=== PATIENT | female | born 1925 | race Caucasian/White ===

== ENCOUNTER 2016-07-06 12:29 | Inpatient (IN) ==
--- NOTE | 2016-07-06 12:44 | PROVIDER DOCUMENTATION ---
HPI-General Adult - General Chief Complaint: High Blood Sugar Stated Complaint: LOW BLOOD SUGAR Time Seen by Provider: 07/06/16 12:43 Source: patient Allergies/Adverse Reactions: Patient Allergies Allergy/AdvReac Type Severity Reaction Status Date / Time No Known Allergies Allergy Verified 07/06/16 12:43 Home Medications: Insulin Detemir [Levemir] 38 unit SUBQ DAILY 07/06/16 Losartan/Hydrochlorothiazide [Hyzaar 100-12.5 Tablet] 1 each PO DAILY 07/06/16 - History of Present Illness -Gen Adult Nature of Presenting Problems: 89 yo female presents to ed with her granddaughter. Pt is confused. Granddaughter states that pt is diabetic and has been out of medications for an unknown period of time. She states that she arrived at her home this morning and found her in her vehicle with a container of chocolate milk. She then brought her to the ed. She states that Dr. Montenegro was her pcp but that he retired and she has not established a new pcp. Granddaughter states that she does not know what medications pt is on or her pmh. Pt states she does not know what medications she should be taking. She uses [facility]. Location of Pain/Injury: reports: none Associated Symptoms: reports: weakness Similar Symptoms Previously?: No Recently seen or treated by another doctor?: No Review of Systems - Adult - REVIEW OF SYSTEMS - ADULT Constitutional: reports: see HPI Neurological: reports: see HPI All Other Systems: Reviewed and Negative Past History - Adult - PAST MEDICAL HISTORY-ADULT Review of Records: reports: Nursing Assessment Review, Medications Reviewed Major Childhood Illnesses: reports: denies history Cardiovascular: reports: HTN Respiratory: reports: denies history Gastrointestinal: reports: denies history Obstetrical/Gynecological: reports: denies history Genitourinary: reports: kidney disease Musculoskeletal: reports: chronic pain (low back) Neurological: reports: denies history Endocrine/Immune: reports: denies history Other Conditions: reports: denies history - PRIOR SURGERIES/PROCEDURES Surgical/Procedure History: reports: breast - PRIOR HOSPITALIZATIONS Prior Hospitalizations: reports: for other non-related - IMMUNIZATION STATUS Childhood Immunizations: See Nurse Assessment Flu Vaccine: See Nurse Assessment - FAMILY HISTORY Family History: reviewed, not pertinent Physical Exam-General - PHYSICAL EXAM-ADULT Initial Vital Signs Reviewed: Yes - CONSTITUTIONAL General Appearance: alert - EYES Eyes: PERRL/EOMI, pink conjunctivae, fundi clear, no AV nicking - HEAD, EARS, NOSE, MOUTH & THROAT HENMT: normocephalic/atraumatic, moist mucous membranes, normal ENT inspection, TMs normal, pharynx normal - NECK Neck: non-tender, full range of motion, supple - RESPIRATORY Respiratory: chest non-tender, lungs clear, normal breath sounds - CARDIOVASCULAR Cardiovascular: normal peripheral pulses, regular rate, rhythm, no edema - GASTROINTESTINAL (ABDOMEN) Abdominal Exam: normal bowel sounds, non tender, soft - LYMPHATIC Lymphatic: no adenopathy - MUSCULOSKELETAL Back Exam: normal inspection, no CVA tenderness, no vertebral tenderness Extremity: normal range of motion, non-tender, normal inspection Peripheral Pulses: radial (R): 1+, radial (L): 1+ - SKIN Integumentary: normal color, normal turgor, warm/dry - NEUROLOGIC Neurologic: inpatient services director II-XII nml as tested - PSYCHIATRIC Psych/Mental Status: disheveled, other (disoriented to circumstances) Progress - PLAN OF CARE/RESULTS Progress/Plan/Lab Results: Laboratory Tests 07/06/16 07/06/16 07/06/16 12:33 13:01 13:01 WBC 6.94 RBC 2.83 L Hgb 5.4 L* Hct 19.8 L MCV 70.0 L MCH 19.1 L MCHC 27.3 L RDW Std Deviation 18.4 H Plt Count 555 H MPV 9.2 Immature Gran % (Auto) 0.7 H Neut % (Auto) 72.0 Lymph % (Auto) 18.7 L [place] % (Auto) 8.1 Eos % (Auto) 0.1 Baso % (Auto) 0.4 Immature Gran # (Auto) 0.05 H Neut # (Auto) 4.99 Lymph # (Auto) 1.30 [place] # (Auto) 0.56 Eos # (Auto) 0.01 Baso # (Auto) 0.03 PTT (Actin FS) Specimen Type Sample Site pH pCO2 pO2 HCO3 Base Excess Oxyhemoglobin ABG O2 Sat (Calculated) ABG O2 Saturation ABG Carboxyhemoglobin ABG Methemoglobin Juan Test A-a O2 Difference Total Hemoglobin Lactate Blood Gas Modality FiO2 % Sodium 131 L Potassium 4.9 Chloride 100 Carbon Dioxide 18 L Anion Gap 13 BUN 23 H Creatinine 1.7 H Estimated GFR/1.73 m2 28 BUN/Creatinine Ratio 14 Glucose 257 H POC Glucose 325 H Calculated Osmolality 275 Calcium 8.5 L Magnesium Iron TIBC % Saturation Unsat Iron Binding Ferritin Total Bilirubin < 0.10 L AST 12 ALT 7 L Alkaline Phosphatase 79 Creatine Kinase Troponin T Total Protein 6.5 Albumin 3.4 L Globulin 3.1 Albumin/Globulin Ratio 1.1 Plasma Lactate Folate Urine Source Urine Color Urine Turbidity Urine pH Ur Specific [place] Urine Protein Ur Glucose (Stick) Ur Ketones (Stick) Urine Blood Urine Nitrite Urine Bilirubin Urobilinogen Dipstick Urine Leukocytes Urine WBC (Auto) Urine RBC (Auto) U Epithel Cells (Auto) Urine Bacteria (Auto) Urine Opiates Screen Ur Oxycodone Screen Ur Methadone, Qual Ur Barbiturates Screen Ur Phencyclidine Scrn Ur Amphetamines Screen U Benzodiazepines Scrn Urine Cocaine Screen U Cannabinoids Screen Plasma/Serum Ethyl Alc Blood Type Antibody Screen Crossmatch 07/06/16 07/06/16 07/06/16 13:01 13:01 13:01 WBC RBC Hgb Hct MCV MCH MCHC RDW Std Deviation Plt Count MPV Immature Gran % (Auto) Neut % (Auto) Lymph % (Auto) [place] % (Auto) Eos % (Auto) Baso % (Auto) Immature Gran # (Auto) Neut # (Auto) Lymph # (Auto) [place] # (Auto) Eos # (Auto) Baso # (Auto) PTT (Actin FS) 23.5 Specimen Type Sample Site pH pCO2 pO2 HCO3 Base Excess Oxyhemoglobin ABG O2 Sat (Calculated) ABG O2 Saturation ABG Carboxyhemoglobin ABG Methemoglobin Juan Test A-a O2 Difference Total Hemoglobin Lactate Blood Gas Modality FiO2 % Sodium Potassium Chloride Carbon Dioxide Anion Gap BUN Creatinine Estimated GFR/1.73 m2 BUN/Creatinine Ratio Glucose POC Glucose Calculated Osmolality Calcium Magnesium Iron 9 L TIBC 357 % Saturation 3 Unsat Iron Binding 348 H Ferritin Total Bilirubin AST ALT Alkaline Phosphatase Creatine Kinase Troponin T Total Protein Albumin Globulin Albumin/Globulin Ratio Plasma Lactate Folate Urine Source Urine Color Urine Turbidity Urine pH Ur Specific [place] Urine Protein Ur Glucose (Stick) Ur Ketones (Stick) Urine Blood Urine Nitrite Urine Bilirubin Urobilinogen Dipstick Urine Leukocytes Urine WBC (Auto) Urine RBC (Auto) U Epithel Cells (Auto) Urine Bacteria (Auto) Urine Opiates Screen Ur Oxycodone Screen Ur Methadone, Qual Ur Barbiturates Screen Ur Phencyclidine Scrn Ur Amphetamines Screen U Benzodiazepines Scrn Urine Cocaine Screen U Cannabinoids Screen Plasma/Serum Ethyl Alc Blood Type Antibody Screen Crossmatch 07/06/16 07/06/16 07/06/16 13:01 13:01 13:19 WBC RBC Hgb Hct MCV MCH MCHC RDW Std Deviation Plt Count MPV Immature Gran % (Auto) Neut % (Auto) Lymph % (Auto) [place] % (Auto) Eos % (Auto) Baso % (Auto) Immature Gran # (Auto) Neut # (Auto) Lymph # (Auto) [place] # (Auto) Eos # (Auto) Baso # (Auto) PTT (Actin FS) Specimen Type Sample Site pH pCO2 pO2 HCO3 Base Excess Oxyhemoglobin ABG O2 Sat (Calculated) ABG O2 Saturation ABG Carboxyhemoglobin ABG Methemoglobin Juan Test A-a O2 Difference Total Hemoglobin Lactate Blood Gas Modality FiO2 % Sodium Potassium Chloride Carbon Dioxide Anion Gap BUN Creatinine Estimated GFR/1.73 m2 BUN/Creatinine Ratio Glucose POC Glucose Calculated Osmolality Calcium Magnesium Iron TIBC % Saturation Unsat Iron Binding Ferritin 1 L Total Bilirubin AST ALT Alkaline Phosphatase Creatine Kinase Troponin T Total Protein Albumin Globulin Albumin/Globulin Ratio Plasma Lactate 2.8 H Folate 11.3 Urine Source Urine Color Urine Turbidity Urine pH Ur Specific [place] Urine Protein Ur Glucose (Stick) Ur Ketones (Stick) Urine Blood Urine Nitrite Urine Bilirubin Urobilinogen Dipstick Urine Leukocytes Urine WBC (Auto) Urine RBC (Auto) U Epithel Cells (Auto) Urine Bacteria (Auto) Urine Opiates Screen Ur Oxycodone Screen Ur Methadone, Qual Ur Barbiturates Screen Ur Phencyclidine Scrn Ur Amphetamines Screen U Benzodiazepines Scrn Urine Cocaine Screen U Cannabinoids Screen Plasma/Serum Ethyl Alc Blood Type Antibody Screen Crossmatch 07/06/16 07/06/16 07/06/16 13:19 14:42 14:42 WBC RBC Hgb Hct MCV MCH MCHC RDW Std Deviation Plt Count MPV Immature Gran % (Auto) Neut % (Auto) Lymph % (Auto) [place] % (Auto) Eos % (Auto) Baso % (Auto) Immature Gran # (Auto) Neut # (Auto) Lymph # (Auto) [place] # (Auto) Eos # (Auto) Baso # (Auto) PTT (Actin FS) Specimen Type Sample Site pH pCO2 pO2 HCO3 Base Excess Oxyhemoglobin ABG O2 Sat (Calculated) ABG O2 Saturation ABG Carboxyhemoglobin ABG Methemoglobin Jaun Test A-a O2 Difference Total Hemoglobin Lactate Blood Gas Modality FiO2 % Sodium Potassium Chloride Carbon Dioxide Anion Gap BUN Creatinine Estimated GFR/1.73 m2 BUN/Creatinine Ratio Glucose POC Glucose Calculated Osmolality Calcium Magnesium Iron TIBC % Saturation Unsat Iron Binding Ferritin Total Bilirubin AST ALT Alkaline Phosphatase Creatine Kinase Troponin T Total Protein Albumin Globulin Albumin/Globulin Ratio Plasma Lactate Folate Urine Source CATH Urine Color YELLOW Urine Turbidity HAZY Urine pH 5.5 Ur Specific [place] 1.021 Urine Protein TRACE A Ur Glucose (Stick) 100 A Ur Ketones (Stick) NEGATIVE Urine Blood NEGATIVE Urine Nitrite NEGATIVE Urine Bilirubin NEGATIVE Urobilinogen Dipstick NORMAL Urine Leukocytes MODERATE A Urine WBC (Auto) 10-20 A Urine RBC (Auto) <10 U Epithel Cells (Auto) <10 Urine Bacteria (Auto) 2+ Urine Opiates Screen NONE DETECTED Ur Oxycodone Screen NONE DETECTED Ur Methadone, Qual NONE DETECTED Ur Barbiturates Screen NONE DETECTED Ur Phencyclidine Scrn NONE DETECTED Ur Amphetamines Screen NONE DETECTED U Benzodiazepines Scrn NONE DETECTED Urine Cocaine Screen NONE DETECTED U Cannabinoids Screen NONE DETECTED Plasma/Serum Ethyl Alc Blood Type A POSITIVE Antibody Screen NEGATIVE Crossmatch See Detail 07/06/16 07/06/16 07/06/16 14:44 14:44 15:05 WBC RBC Hgb Hct MCV MCH MCHC RDW Std Deviation Plt Count MPV Immature Gran % (Auto) Neut % (Auto) Lymph % (Auto) [place] % (Auto) Eos % (Auto) Baso % (Auto) Immature Gran # (Auto) Neut # (Auto) Lymph # (Auto) [place] # (Auto) Eos # (Auto) Baso # (Auto) PTT (Actin FS) Specimen Type ARTERIAL Sample Site R BRACHIAL pH 7.45 pCO2 28 L pO2 90 HCO3 21.8 Base Excess -4.0 L Oxyhemoglobin 96.3 ABG O2 Sat (Calculated) 9.4 L ABG O2 Saturation 98.7 ABG Carboxyhemoglobin 1.40 ABG Methemoglobin 1.1 Juan Test NO A-a O2 Difference 25.0 Total Hemoglobin 6.8 L Lactate 2.30 H Blood Gas Modality ROOM AIR FiO2 % 21.0 Sodium Potassium Chloride Carbon Dioxide Anion Gap BUN Creatinine Estimated GFR/1.73 m2 BUN/Creatinine Ratio Glucose POC Glucose Calculated Osmolality Calcium Magnesium 1.6 Iron TIBC % Saturation Unsat Iron Binding Ferritin Total Bilirubin AST ALT Alkaline Phosphatase Creatine Kinase 42 Troponin T < 0.010 Total Protein Albumin Globulin Albumin/Globulin Ratio Plasma Lactate Folate Urine Source Urine Color Urine Turbidity Urine pH Ur Specific [place] Urine Protein Ur Glucose (Stick) Ur Ketones (Stick) Urine Blood Urine Nitrite Urine Bilirubin Urobilinogen Dipstick Urine Leukocytes Urine WBC (Auto) Urine RBC (Auto) U Epithel Cells (Auto) Urine Bacteria (Auto) Urine Opiates Screen Ur Oxycodone Screen Ur Methadone, Qual Ur Barbiturates Screen Ur Phencyclidine Scrn Ur Amphetamines Screen U Benzodiazepines Scrn Urine Cocaine Screen U Cannabinoids Screen Plasma/Serum Ethyl Alc Blood Type Antibody Screen Crossmatch Orders Category Date Time Status Admit - [facility] Routine AdmDCTranf 07/06/16 15:06 Ordered Activity - Bed Rest with BRP ORDERED Care 07/06/16 15:06 Active Call Admitting on Arrival AT ADMISSION Care 07/06/16 15:07 Active Cardiac Monitoring DIRECTED Care 07/06/16 13:50 Active FSBS [Finger Stick Blood Sugar (ED)] DIRECTED Care 07/06/16 12:36 Active [place] [facility] Insertion ORDERED Care 07/06/16 14:16 Active Neurological Check Q4H Care 07/06/16 15:07 Active Saline Loc DIRECTED Care 07/06/16 15:06 Active Saline Loc NOW Care 07/06/16 12:44 Active Transfuse .Give-Transfuse Care 07/06/16 14:07 Active Vital Signs Order ARRIVAL TO ROOM Care 07/06/16 15:06 Active Vital Signs Order ROUTINE Care 07/06/16 15:06 Active Regular Diet Diet 07/06/16 15:08 Active CHEST-2 VIEWS [RAD] Stat Exams 07/06/16 13:48 Completed HEAD W/O CONTRAST [CT] Stat Exams 07/06/16 14:15 Completed ABG [RESP] Routine Lab 07/06/16 15:05 Completed ALCOHOL BLOOD Stat Lab 07/06/16 13:01 Completed BLOOD CULTURE [BLDCUL] Stat Lab 07/06/16 14:42 Received CBC WITH ELECTRONIC DIFF [HEME] Stat Lab 07/06/16 13:01 Completed CK PROFILE [SP CHEM] Stat Lab 07/06/16 14:44 Completed COMPREHENSIVE METABOLIC PANEL [CHEM] Stat Lab 07/06/16 13:01 Completed FERRITIN Stat Lab 07/06/16 13:01 Completed FOLATE Stat Lab 07/06/16 13:01 Completed LACTATE, PLASMA [CHEM] Stat Lab 07/06/16 13:19 Completed LRPC (RED CELLS) [BBK] Stat Lab 07/06/16 13:19 Results MAGNESIUM [CHEM] Stat Lab 07/06/16 14:44 Completed OCCULT BLOOD SCREENING [STOOL] Stat Lab 07/06/16 14:42 Completed PTT [COAG] Stat Lab 07/06/16 13:01 Completed TROPONIN T Stat Lab 07/06/16 14:44 Completed TYPE & SCREEN [BBK] Stat Lab 07/06/16 13:19 Results UA NIMS W/REFLEX CULT [URINALYSIS] Stat Lab 07/06/16 14:42 Completed UDS [URINE DRUG SCREEN] Stat Lab 07/06/16 14:42 Completed UIBC W TOTAL IRON [CHEM] Stat Lab 07/06/16 13:01 Completed VITAMIN B12 Routine Lab 07/07/16 06:00 Ordered 0.9% Sodium Chloride Inj [Ns] 1,000 ml Med 07/06/16 15:15 Active IV 150 mls/hr 0.9% Sodium Chloride Inj [Ns] 1,000 ml Med 07/06/16 13:04 Discontinued IV 999 mls/hr 0.9% Sodium Chloride Inj [Ns] 500 ml Med 07/06/16 14:07 Discontinued IV As Directed 0.9% Sodium Chloride Inj [Ns] 500 ml Med 07/06/16 14:14 Discontinued IV As Directed Diphenhydramine [Benadryl] Med 07/06/16 15:11 Discontinued 25 mg IV NOW ONE Diphenhydramine [Benadryl] Med 07/06/16 14:07 Discontinued 50 mg PO PREMED ONE Insulin Human Regular [Humulin R] Med 07/06/16 13:04 Discontinued 8 unit IV NOW ONE Transfer/Admit Order [TRANSFER] Routine Transfer 07/06/16 15:07 Ordered Vital Signs Temp Pulse Resp BP Pulse Ox 07/06/16 14:58 83 23 140/65 100 07/06/16 12:33 97.4 F L 90 20 134/59 100 No Known Allergies Allergy (Verified 07/06/16 12:43) Insulin Detemir [Levemir] 38 unit SUBQ DAILY 07/06/16 Losartan/Hydrochlorothiazide [Hyzaar 100-12.5 Tablet] 1 each PO DAILY 07/06/16 Dietary Diet Regular Diet Start Sat Jul 06 150 Laboratory 07/06/16 07/06/16 07/06/16 15:05 14:44 14:44 WBC RBC Hgb Hct MCV MCH MCHC RDW Std Deviation Plt Count MPV Immature Gran % (Auto) Neut % (Auto) Lymph % (Auto) [place] % (Auto) Eos % (Auto) Baso % (Auto) Immature Gran # (Auto) Neut # (Auto) Lymph # (Auto) [place] # (Auto) Eos # (Auto) Baso # (Auto) PTT (Actin FS) Specimen Type ARTERIAL Sample Site R BRACHIAL pH 7.45 pCO2 28 L pO2 90 HCO3 21.8 Base Excess -4.0 L Oxyhemoglobin 96.3 ABG O2 Sat (Calculated) 9.4 L ABG O2 Saturation 98.7 ABG Carboxyhemoglobin 1.40 ABG Methemoglobin 1.1 Juan Test NO A-a O2 Difference 25.0 Total Hemoglobin 6.8 L Lactate 2.30 H Blood Gas Modality ROOM AIR FiO2 % 21.0 Sodium Potassium Chloride Carbon Dioxide Anion Gap BUN Creatinine Estimated GFR/1.73 m2 BUN/Creatinine Ratio Glucose POC Glucose Calculated Osmolality Calcium Magnesium 1.6 Iron TIBC % Saturation Unsat Iron Binding Ferritin Total Bilirubin AST ALT Alkaline Phosphatase Creatine Kinase 42 Troponin T < 0.010 Total Protein Albumin Globulin Albumin/Globulin Ratio Plasma Lactate Folate Urine Source Urine Color Urine Turbidity Urine pH Ur Specific [place] Urine Protein Ur Glucose (Stick) Ur Ketones (Stick) Urine Blood Urine Nitrite Urine Bilirubin Urobilinogen Dipstick Urine Leukocytes Urine WBC (Auto) Urine RBC (Auto) U Epithel Cells (Auto) Urine Bacteria (Auto) Urine Opiates Screen Ur Oxycodone Screen Ur Methadone, Qual Ur Barbiturates Screen Ur Phencyclidine Scrn Ur Amphetamines Screen U Benzodiazepines Scrn Urine Cocaine Screen U Cannabinoids Screen Plasma/Serum Ethyl Alc Blood Type Antibody Screen Crossmatch 07/06/16 07/06/16 07/06/16 14:42 14:42 13:19 WBC RBC Hgb Hct MCV MCH MCHC RDW Std Deviation Plt Count MPV Immature Gran % (Auto) Neut % (Auto) Lymph % (Auto) [place] % (Auto) Eos % (Auto) Baso % (Auto) Immature Gran # (Auto) Neut # (Auto) Lymph # (Auto) [place] # (Auto) Eos # (Auto) Baso # (Auto) PTT (Actin FS) Specimen Type Sample Site pH pCO2 pO2 HCO3 Base Excess Oxyhemoglobin ABG O2 Sat (Calculated) ABG O2 Saturation ABG Carboxyhemoglobin ABG Methemoglobin Juan Test A-a O2 Difference Total Hemoglobin Lactate Blood Gas Modality FiO2 % Sodium Potassium Chloride Carbon Dioxide Anion Gap BUN Creatinine Estimated GFR/1.73 m2 BUN/Creatinine Ratio Glucose POC Glucose Calculated Osmolality Calcium Magnesium Iron TIBC % Saturation Unsat Iron Binding Ferritin Total Bilirubin AST ALT Alkaline Phosphatase Creatine Kinase Troponin T Total Protein Albumin Globulin Albumin/Globulin Ratio Plasma Lactate Folate Urine Source CATH Urine Color YELLOW Urine Turbidity HAZY Urine pH 5.5 Ur Specific [place] 1.021 Urine Protein TRACE A Ur Glucose (Stick) 100 A Ur Ketones (Stick) NEGATIVE Urine Blood NEGATIVE Urine Nitrite NEGATIVE Urine Bilirubin NEGATIVE Urobilinogen Dipstick NORMAL Urine Leukocytes MODERATE A Urine WBC (Auto) 10-20 A Urine RBC (Auto) <10 U Epithel Cells (Auto) <10 Urine Bacteria (Auto) 2+ Urine Opiates Screen NONE DETECTED Ur Oxycodone Screen NONE DETECTED Ur Methadone, Qual NONE DETECTED Ur Barbiturates Screen NONE DETECTED Ur Phencyclidine Scrn NONE DETECTED Ur Amphetamines Screen NONE DETECTED U Benzodiazepines Scrn NONE DETECTED Urine Cocaine Screen NONE DETECTED U Cannabinoids Screen NONE DETECTED Plasma/Serum Ethyl Alc Blood Type A POSITIVE Antibody Screen NEGATIVE Crossmatch See Detail 07/06/16 07/06/16 07/06/16 13:19 13:01 13:01 WBC RBC Hgb Hct MCV MCH MCHC RDW Std Deviation Plt Count MPV Immature Gran % (Auto) Neut % (Auto) Lymph % (Auto) [place] % (Auto) Eos % (Auto) Baso % (Auto) Immature Gran # (Auto) Neut # (Auto) Lymph # (Auto) [place] # (Auto) Eos # (Auto) Baso # (Auto) PTT (Actin FS) Specimen Type Sample Site pH pCO2 pO2 HCO3 Base Excess Oxyhemoglobin ABG O2 Sat (Calculated) ABG O2 Saturation ABG Carboxyhemoglobin ABG Methemoglobin Juan Test A-a O2 Difference Total Hemoglobin Lactate Blood Gas Modality FiO2 % Sodium Potassium Chloride Carbon Dioxide Anion Gap BUN Creatinine Estimated GFR/1.73 m2 BUN/Creatinine Ratio Glucose POC Glucose Calculated Osmolality Calcium Magnesium Iron TIBC % Saturation Unsat Iron Binding Ferritin 1 L Total Bilirubin AST ALT Alkaline Phosphatase Creatine Kinase Troponin T Total Protein Albumin Globulin Albumin/Globulin Ratio Plasma Lactate 2.8 H Folate 11.3 Urine Source Urine Color Urine Turbidity Urine pH Ur Specific [place] Urine Protein Ur Glucose (Stick) Ur Ketones (Stick) Urine Blood Urine Nitrite Urine Bilirubin Urobilinogen Dipstick Urine Leukocytes Urine WBC (Auto) Urine RBC (Auto) U Epithel Cells (Auto) Urine Bacteria (Auto) Urine Opiates Screen Ur Oxycodone Screen Ur Methadone, Qual Ur Barbiturates Screen Ur Phencyclidine Scrn Ur Amphetamines Screen U Benzodiazepines Scrn Urine Cocaine Screen U Cannabinoids Screen Plasma/Serum Ethyl Alc Blood Type Antibody Screen Crossmatch 07/06/16 07/06/16 07/06/16 13:01 13:01 13:01 WBC RBC Hgb Hct MCV MCH MCHC RDW Std Deviation Plt Count MPV Immature Gran % (Auto) Neut % (Auto) Lymph % (Auto) [place] % (Auto) Eos % (Auto) Baso % (Auto) Immature Gran # (Auto) Neut # (Auto) Lymph # (Auto) [place] # (Auto) Eos # (Auto) Baso # (Auto) PTT (Actin FS) 23.5 Specimen Type Sample Site pH pCO2 pO2 HCO3 Base Excess Oxyhemoglobin ABG O2 Sat (Calculated) ABG O2 Saturation ABG Carboxyhemoglobin ABG Methemoglobin Juan Test A-a O2 Difference Total Hemoglobin Lactate Blood Gas Modality FiO2 % Sodium Potassium Chloride Carbon Dioxide Anion Gap BUN Creatinine Estimated GFR/1.73 m2 BUN/Creatinine Ratio Glucose POC Glucose Calculated Osmolality Calcium Magnesium Iron 9 L TIBC 357 % Saturation 3 Unsat Iron Binding 348 H Ferritin Total Bilirubin AST ALT Alkaline Phosphatase Creatine Kinase Troponin T Total Protein Albumin Globulin Albumin/Globulin Ratio Plasma Lactate Folate Urine Source Urine Color Urine Turbidity Urine pH Ur Specific [place] Urine Protein Ur Glucose (Stick) Ur Ketones (Stick) Urine Blood Urine Nitrite Urine Bilirubin Urobilinogen Dipstick Urine Leukocytes Urine WBC (Auto) Urine RBC (Auto) U Epithel Cells (Auto) Urine Bacteria (Auto) Urine Opiates Screen Ur Oxycodone Screen Ur Methadone, Qual Ur Barbiturates Screen Ur Phencyclidine Scrn Ur Amphetamines Screen U Benzodiazepines Scrn Urine Cocaine Screen U Cannabinoids Screen Plasma/Serum Ethyl Alc Blood Type Antibody Screen Crossmatch 07/06/16 07/06/16 07/06/16 13:01 13:01 12:33 WBC 6.94 RBC 2.83 L Hgb 5.4 L* Hct 19.8 L MCV 70.0 L MCH 19.1 L MCHC 27.3 L RDW Std Deviation 18.4 H Plt Count 555 H MPV 9.2 Immature Gran % (Auto) 0.7 H Neut % (Auto) 72.0 Lymph % (Auto) 18.7 L [place] % (Auto) 8.1 Eos % (Auto) 0.1 Baso % (Auto) 0.4 Immature Gran # (Auto) 0.05 H Neut # (Auto) 4.99 Lymph # (Auto) 1.30 [place] # (Auto) 0.56 Eos # (Auto) 0.01 Baso # (Auto) 0.03 PTT (Actin FS) Specimen Type Sample Site pH pCO2 pO2 HCO3 Base Excess Oxyhemoglobin ABG O2 Sat (Calculated) ABG O2 Saturation ABG Carboxyhemoglobin ABG Methemoglobin Juan Test A-a O2 Difference Total Hemoglobin Lactate Blood Gas Modality FiO2 % Sodium 131 L Potassium 4.9 Chloride 100 Carbon Dioxide 18 L Anion Gap 13 BUN 23 H Creatinine 1.7 H Estimated GFR/1.73 m2 28 BUN/Creatinine Ratio 14 Glucose 257 H POC Glucose 325 H Calculated Osmolality 275 Calcium 8.5 L Magnesium Iron TIBC % Saturation Unsat Iron Binding Ferritin Total Bilirubin < 0.10 L AST 12 ALT 7 L Alkaline Phosphatase 79 Creatine Kinase Troponin T Total Protein 6.5 Albumin 3.4 L Globulin 3.1 Albumin/Globulin Ratio 1.1 Plasma Lactate Folate Urine Source Urine Color Urine Turbidity Urine pH Ur Specific [place] Urine Protein Ur Glucose (Stick) Ur Ketones (Stick) Urine Blood Urine Nitrite Urine Bilirubin Urobilinogen Dipstick Urine Leukocytes Urine WBC (Auto) Urine RBC (Auto) U Epithel Cells (Auto) Urine Bacteria (Auto) Urine Opiates Screen Ur Oxycodone Screen Ur Methadone, Qual Ur Barbiturates Screen Ur Phencyclidine Scrn Ur Amphetamines Screen U Benzodiazepines Scrn Urine Cocaine Screen U Cannabinoids Screen Plasma/Serum Ethyl Alc Blood Type Antibody Screen Crossmatch - XRAY 1 XRAY Study: Chest XRAY Interpretation: no pneumonia - CT/MRI 1 CT Results: no bleeding. Chronic atrophy noted. - CONSULTS/PCP/HOSPITALIST Notification #1 *Consult/PCP/Hospitalist*: [place] Time Discussed: 15:20 Consult Disposition: Admit Departure - Departure Time of Disposition Order: 15:40 DIAGNOSIS: Hyperglycemia GI bleed Qualifiers: GI bleed type/associated pathology: unspecified gastrointestinal hemorrhage type Qualified Code(s): K92.2 - Gastrointestinal hemorrhage, unspecified UTI (urinary tract infection) Qualifiers: Urinary tract infection type: site unspecified Hematuria presence: without hematuria Qualified Code(s): N39.0 - Urinary tract infection, site not specified Altered mental status Qualifiers: Altered mental status type: unspecified Qualified Code(s): R41.82 - Altered mental status, unspecified Disposition: ADMITTED INPATIENT 09 Certified Medical Emergency: Emergent Condition: Stable Attestation - Physician/ MITCH Attestation Patient care was provided by Advanced Practice Provider:: Yes Advanced Practice Provider:: Rm Hester Advanced Practice Provider documentation review:: The Mid-level provider documentation, treatment plan and medical decision making was reviewed by the physician who agrees with all treatment and medical decision making by the MLP. The physician spent face to face time with patient:: Yes
[2016-07-06] MEDS ORDERED: NS 1,000 ML IV ONE (13:04)
[2016-07-06] MEDS ORDERED: HUMULIN R IV ONE (13:04)
[2016-07-06 13:45] LABS: AGAP 13; ALBUMIN 3.4 g/dL (3.5-5.0); ALKALINE PHOSPHATASE 79 U/L (32-104); BUN 23 mg/dL (8-22); CALCIUM 8.5 mg/dL (8.8-10.2); CHLORIDE 100 mmol/L (98-107); COSMO 275; GOT 12 U/L (10-30); GPT 7 U/L (10-36); POTASSIUM 4.9 mmol/L (3.5-5.1); SODIUM 131 mmol/L (136-145); TCO2 18 mmol/L (25-35); TOTAL BILIRUBIN < 0.10 mg/dL (0.20-1.00); TOTAL PROTEIN 6.5 g/dL (6.3-8.3)
[2016-07-06 13:49] LABS: BASO% 0.4 % (0.0-0.8); EOS# 0.01 X1000 (0.0-0.7); EOS% 0.1 % (0.0-10.0); HEMATOCRIT 19.8 % (37.0-47.0); IMM GRAN# 0.05 X1000 (0.0-0.04); IMM GRAN% 0.7 % (0.0-0.5); LYMPH% 18.7 % (20.5-51.1); MANUAL DIFF NEEDED? NO; MCH 19.1 PG (27-31); MCHC 27.3 g/dL (33-37); MONO# 0.56 X1000 (0.11-0.59); MONO% 8.1 % (1.7-9.3); MPV 9.2 FL (7.4-10.4); PLT 555 X1000 (130-400); RBC 2.83 XMIL (4.2-5.4)
[2016-07-06 13:50] LABS: HEMOGLOBIN 5.4 g/dL (12.0-16.0)
[2016-07-06] MEDS ORDERED: NS 500 ML IV ONE ×2 (14:07→14:14)
[2016-07-06] MEDS ORDERED: BENADRYL PO ONE (14:07)
[2016-07-06 14:49] LABS: IRON SATURATION 3 %; TIBC 357 ug/dL
[2016-07-06 14:51] LABS: TOTAL IRON 9 ug/dL (49-151); UNBOUND IRON 348 ug/dL (112-346)
--- NOTE | 2016-07-06 14:51 | Diag Imaging Result Document ---
PROCEDURE NAME: HEAD W/O CONTRAST - 07/06/2016 CT BRAIN WITHOUT CONTRAST. TECHNIQUE: Dose reduction protocol. FINDINGS: No parenchymal hemorrhage. No epidural or subdural hematoma. No subarachnoid hemorrhage. There is atrophy with chronic microvascular ischemic changes. No hydrocephalus. No sinus opacification. No air-fluid levels. IMPRESSION: 1. No hemorrhage. 2. Atrophy with chronic microvascular ischemic changes. A followup MRI may be beneficial. A preliminary report was given at 2:37 p.m.
--- NOTE | 2016-07-06 14:55 | Diag Imaging Result Document ---
PROCEDURE NAME: CHEST-2 VIEWS - 07/06/2016 SITTING AND LATERAL CHEST, 2 VIEWS: COMPARISON: Compared to 11/27/2015. FINDINGS: The lungs are well expanded. The heart is borderline mildly prominent. The vessels are not distended. No pneumonia. No pleural effusions. No free air beneath the diaphragm. IMPRESSION: 1. Mildly prominent heart. 2. No pneumonia.
[2016-07-06] MEDS ORDERED: BENADRYL IV ONE (15:11)
[2016-07-06 15:13] LABS: URINE MICRO REVIEW NEEDED? NO; URINE SOURCE CATH
[2016-07-06 15:15] LABS: ALLEN TEST NO; BLOOD TYPE ARTERIAL; DRAW SITE R BRACHIAL; METHB 1.1 % (0.0-1.5); O2(CT) 9.4 mL/dL (15.0-23.0); PCO2(98.6) 28 mmHg (35-45); PO2(98.6) 90 mmHg (60-100); SAMPLE BLOOD; SAO2 98.7 % (95.0-100.0); THB 6.8 g/dL (11.5-17.4); pH(98.6) 7.45 (7.35-7.45)
[2016-07-06] MEDS ORDERED: NS 1,000 ML IV SCH (15:15)
[2016-07-06 15:16] LABS: MODALITY ROOM AIR
[2016-07-06 15:20] LABS: BILIRUBIN URINE NEGATIVE (NEGATIVE); BLOOD URINE NEGATIVE (NEGATIVE); COLOR YELLOW; GLUCOSE URINE 100 mg/dL (NEGATIVE); LEUKOCYTES URINE MODERATE (NEGATIVE); NITRITE URINE NEGATIVE (NEGATIVE); PH URINE 5.5; PROTEIN URINE TRACE mg/dL (NEGATIVE); SP GRAVITY URINE 1.021; TURBIDITY URINE HAZY (CLEAR); UROBILINOGEN URINE NORMAL (NORMAL)
[2016-07-06 15:21] LABS: UR EPITHELIAL CELLS <10 /HPF (<10); URINE BACTERIA 2+ /HPF; URINE CULTURE NEEDED? YES; URINE RBC <10 /HPF (<10)
[2016-07-06 15:31] LABS: MAGNESIUM 1.6 mg/dL (1.5-2.7)
[2016-07-06 15:35] LABS: UR AMPHETAMINES QUAL NONE DETECTED (NONE DETECT); UR BARBITUATES QUAL NONE DETECTED (NONE DETECT); UR BENZODIAZEPIN QUAL NONE DETECTED (NONE DETECT); UR CANNABINOIDS QUAL NONE DETECTED (NONE DETECT); UR COCAINE QUAL NONE DETECTED (NONE DETECT); UR METHADONE QUAL NONE DETECTED (NONE DETECT); UR OPIATES QUAL NONE DETECTED (NONE DETECT); UR OXYCODONE QUAL NONE DETECTED (NONE DETECT); UR PCP QUAL NONE DETECTED (NONE DETECT)
--- NOTE | 2016-07-06 16:42 | HISTORY AND PHYSICAL ---
CHIEF COMPLAINT: Altered mental status. PCP: None. HISTORY OF PRESENT ILLNESS: Mrs. Nava is an 89-year-old female with an apparent history of diabetes, chronic kidney disease and hypertension all of which are currently untreated. The patient currently lives alone and checked in on occasionally by her granddaughter. Per her granddaughter, over the past few weeks the patient has become more confused and has seemingly not been taking care of herself. Today she found her grandmother in her car parked outside of her front yard with the patient in it in a dazed state. When asked what she was doing she just kept answering I do not know. No. Her granddaughter at that time decided to bring her here to the ER for evaluation. Apparently the patient used to see Dr. Miranda who retired around a year ago. She is being treated for hypertension, diabetes mellitus, and chronic kidney disease. Since he retired, she has not seen another physician and she is not on any medications. Again per the granddaughter's report, the patient lives alone and is in a disheveled manner, her granddaughter reports that she is a hoarder and she does not eat very well. When the patient got to the ER today a head CT was done and did not show anything acute, her laboratory data was significant for profound anemia of a microcytic nature. Her initial hemoglobin was 5.4 with hematocrit of 19.8. She was also noted to be mildly hyponatremic with renal insufficiency, hyperglycemia and a lactic acid of 2.8. Urine reveals urinary tract infection as well. The patient herself is quite confused. She does not know where she is or what year it is, she does not know why she is in the hospital. When asked about any source of bleeding she denied any hematochezia, hematemesis or melena. She has been typed and screened in ER she and will be given 2 units. We will admit her for further treatment and evaluation. PAST MEDICAL HISTORY: 1. Hypertension. 2. Type 2 diabetes. 3. Diabetes mellitus. 4. Poor medical compliance. 5. Questionable dementia. SURGICAL HISTORY: Bilateral hip arthroplasty and hysterectomy. SOCIAL HISTORY: Patient lives alone. She does not smoke, drink or use illicit substances. She is . REVIEW OF SYSTEMS: Ten-point review of systems was obtained and found to be negative with the exception of the HPI. HOME MEDICATIONS: None. ALLERGIES: None. PHYSICAL EXAMINATION: VITAL SIGNS: Blood pressure is 131/61, heart rate is 84, respiratory rate 17, O2 saturations 100% on room air, temperature is 97.4 degrees. GENERAL: This is a disheveled appearing elderly 89-year-old female lying in hospital bed in no acute distress. NEUROLOGIC: The patient is awake and she is alert but she is confused. She follows commands without focal deficits. HEENT: Head is atraumatic and normocephalic. Her pupils are equal, round, reactive to light. Oral mucosa is dry. Trachea is midline. CHEST: Clear to auscultation bilaterally. CV: Regular rate and rhythm. S1-S2 is noted. No murmurs, gallops, clicks, rubs. GI: Soft, nondistended and nontender. Bowel sounds are positive. EXTREMITIES: Without edema, clubbing or cyanosis. Pulses are palpable bilaterally. DIAGNOSTIC DATA: WBC 6.94, hemoglobin 5.4, hematocrit 19.8, MCV 70, PTT 23.5. ABG shows pH of 7.45, CO2 28, PO2 90, bicarb 21.8. Lactate 2.3. Sodium 131, potassium 4.9, chloride 100, CO2 18, anion gap 13, BUN 23, creatinine 1.7, glucose is 257, calcium 8.5, magnesium 1.6, iron 9, TIBC 357, percent saturation 3, unsaturated iron binding 348, ferritin is 1, total bilirubin is less than 0.1, AST 12, ALT 7, alkaline phosphatase 79, troponin negative, albumin 3.4, lactate 2.8, folate 11.3. UA shows urinary tract infection. Head CT shows chronic changes but nothing acute. Chest x-ray shows nothing acute as well. ASSESSMENT AND PLAN: 1. Encephalopathy of unknown etiology: Certainly differentials are brought at this time. Head CT does not show anything acute. She is not exhibiting any focal deficits. Dementia or infection are certainly possibilities as is her anemia. We will treat all of the underlying metabolic issues and continue to check her neurologic status. If no resolution in the next 24- 48 hours she may require MRI. 2. Profound anemia: Chronic in nature given her MCV of 70. We are going to check an occult stool, transfuse now and trend her hemoglobin and hematocrit. She is obviously iron deficient as well. Given her social situation nutritional deficiency is likely but would not rule out gastrointestinal bleeding. 3. Hypovolemic hyponatremia. Will continue IV fluids and check iron studies. 4. Non-anion gap metabolic acidosis: Likely secondary to her renal insufficiency. Will continue to hydrate and treat her underlying comorbidities. 5. Renal insufficiency/ chronic kidney disease: Creatinine checked last year was 1.7 and this is the only other creatinine we have. She also had a renal ultrasound done last year which did not show anything acute. We are going to check iron studies and treat underlying urinary tract infection and hydrate. 6. Untreated diabetes mellitus: Check a hemoglobin A1c, add basal and sliding scale insulin along with pattern blood sugars. 7. Urinary tract infection: Will treat with Rocephin. 8. Poor living environment: Obviously the patient's living situation is unsafe. We are going to consult social work and case management and discuss with the granddaughter who is her only living relative the possibility of long-term care. 9. Will add Protonix for GI prophylaxis and Lovenox for DVT prophylaxis. Further recommendations to follow. Dictated by DIANNE Barnes for Mike Galvan MD
[2016-07-06] MEDS ORDERED: PROTONIX IV SCH (17:00)
[2016-07-06 17:03] LABS: INR 1.11; PROTIME 11.8 Seconds (9.2-11.7)
[2016-07-06 17:05] LABS: MAGNESIUM 1.7 mg/dL (1.5-2.7)
[2016-07-06 17:10] LABS: HEMOGLOBIN A1C 6.9 % (4.8-6.0)
[2016-07-06 17:16] LABS: FREE T4 1.03 ng/dL (0.93-1.70)
[2016-07-06] MEDS: HUMALOG SUBQ SCH ×2 (17:49→20:07)
[2016-07-06] MEDS ORDERED: ROCEPHIN 1 GM/NS 50 ML IV SCH (18:30)
[2016-07-06] MEDS: NS 1,000 ML IV SCH (19:34)
[2016-07-06] MEDS: SODIUM CHLORIDE 0.9% INJ SCH (20:06)
[2016-07-06] MEDS: PROTONIX IV SCH (20:06)
--- NOTE | 2016-07-06 21:57 | CONSULTATION ---
DATE OF CONSULTATION: 07/06/2016 REFERRING PHYSICIAN: Mike Galvan M.D. PRIMARY CARE PROVIDER: None. Of note, she was previously followed by Dr. West Miranda but has not seen a physician since Dr. Miranda retired. INDICATION FOR CONSULTATION: Anemia with a hemoglobin of 5.4 and hematocrit of 19.8. HISTORY OF PRESENT ILLNESS: The patient is an 89-year-old white female who has diabetes, chronic kidney disease and hypertension which has been poorly managed since Dr. Miranda retired. She was previously followed by Dr. Miranda on a regular basis. She states that since he left she has not been evaluated by health healthcare customer service. Her granddaughter found her sitting in a parked car outside in her front yard in a dazed state. She was brought to the emergency room where she was found to be profoundly anemic. She denies any GI symptoms stating that she has felt fine, her stools have been normal color and she has had no nausea or vomiting. She has never had a screening colonoscopy although Dr. Miranda has recommended in the past. She denies hematochezia, hematemesis and melena. We are asked to evaluate the anemia. PAST MEDICAL HISTORY: 1. Hypertension. 2. Diabetes. 3. Chronic kidney disease. 4. Overweight. 5. Medical noncompliance. 6. Questionable dementia (granddaughter reports that the patient has been hoarding at her home for the last several years). 7. Right breast cancer, s/p mastectomy with no chemo or radiation treatment. PAST SURGICAL HISTORY: 1. Bilateral hip arthroplasty. 2. Hysterectomy. SOCIAL HISTORY: The patient lives alone. She is checked on regularly by her granddaughter. She denies tobacco, alcohol, recreational drug use. REVIEW OF SYSTEMS: Appears to be negative. She reports that she is active in her home and has been doing well. She denies any symptoms including pulmonary, cardiac and GI. HOME MEDICATIONS: None. MEDICATION ALLERGIES: None. PHYSICAL EXAMINATION: General: She is a older white female in no acute distress. Vital signs: Her blood pressure is 138/84, pulse 83, respiration 18, temperature of 97.8 degrees. HEENT: Negative for jaundice. Her sclerae are anicteric. Her conjunctivae are extremely pale. Oropharyngeal mucosal membranes unremarkable. Pulmonary: Lungs are clear to auscultation with normal expiratory effort. She has a right mastectomy. Cardiovascular Exam: Reveals regular rate and rhythm with no murmurs, gallops or rubs. Abdominal Exam: Reveals normoactive bowel sounds. The abdomen is soft, nontender with no rebound or guarding. Extremities: Bilaterally are negative for cyanosis, clubbing or edema. OBJECTIVE DATA: Reveals a hemoglobin of 5.4 with hematocrit of 19.8 and a white count of 6.94. She has 555,000 platelets. Her PT is 11.8 with an INR of 1.11 and a PTT of 23.5. Her blood gas reveals a pH of 7.45 with a pCO2 of 28 and a PO2 of 90 on room air. It should be noted that her arterial lactate is 2.30. Sodium is 131, potassium 4.9, chloride 100, CO2 is 18 , BUN 23, creatinine 1.7 with a glucose of 257. Her hemoglobin A1c is 6.9. Calcium is 8.5, phosphorus 3.0, magnesium 1.7, AST 12, ALT 7, alkaline phosphatase 79, total protein 6.5, albumin 3.4. Her ammonia level is 23. Her iron is 9 with a ferritin of 1. Her plasma lactate is also elevated at 1.7 with a TSH of 1.70 and folic acid of 11.3. Her urinalysis is positive for moderate leukocytosis. Her urine toxicology screen and blood alcohol level are unremarkable. IMPRESSION: 1. Profound anemia. 2. Elevated lactic acid level. 3. No prior history of colon cancer. Of note, family history is negative. RECOMMENDATION: 1. Because the patient has profound anemia, I recommend EGD and colonoscopy on Friday. 2. I agree with Protonix 40 mg IV q.12 hours. 3. I agree with antibiotics pending further evaluation. 4. The elevated lactic acid level raises concern for mesenteric ischemia. However, she is relatively asymptomatic. Additional recommendations regarding intervention will be based on her endoscopic findings. 5. Additional recommendations to follow based on her clinical course. Thank you for allowing me to participate in her care. [facility] CENTER[facility]manuel
[2016-07-06] MEDS ORDERED: MELATONIN PO ONE (23:58)
[2016-07-07] MEDS: NS 1,000 ML IV SCH (05:53)
[2016-07-07 06:25] LABS: HEMATOCRIT 26.5 % (37.0-47.0); MCH 23.1 PG (27-31); MCHC 30.2 g/dL (33-37); MCV 76.6 FL (81-99); RBC 3.46 XMIL (4.2-5.4)
[2016-07-07] MEDS: HUMALOG SUBQ SCH ×4 (06:30→21:26)
[2016-07-07 06:49] LABS: AGAP 13; BUN 18 mg/dL (8-22); CALCIUM 8.1 mg/dL (8.8-10.2); CHLORIDE 108 mmol/L (98-107); COSMO 281; HDL 33 mg/dL (45-65); LDL 68 mg/dL; POTASSIUM 4.2 mmol/L (3.5-5.1); SODIUM 140 mmol/L (136-145); TCO2 19 mmol/L (25-35); TRIGLYCERIDES 120 mg/dL (35-135); VLDL 24 mg/dL
[2016-07-07] MEDS: LEVEMIR SUBQ SCH (08:58)
[2016-07-07] MEDS: PROTONIX IV SCH ×2 (09:00→21:27)
[2016-07-07] MEDS: SODIUM CHLORIDE 0.9% INJ SCH (09:00)
[2016-07-07] MEDS: FERROUS SULFATE PO SCH ×2 (09:04→21:27)
[2016-07-07] MEDS: PERICOLACE PO SCH ×3 (09:04→23:53)
--- NOTE | 2016-07-07 10:25 | PROGRESS NOTE ---
DATE: 07/07/2016 SUBJECTIVE: Today, Ms. Nava refers to be doing a whole lot better. She denies any complaints. OBJECTIVE: Vital Signs: Blood pressure is 140/69, pulse of 91, respirations are 18, temperature is 98.5 degrees. General Examination: Ms. Nava is an 89-year-old, female. She is in bed and does not seem to be in any distress. HEENT: Mucosa is slightly pale but a whole lot better than yesterday. Moist. Anicteric and acyanotic. Neck: Supple. Chest : Good air entry bilateral. There are diffuse bilateral crepitations. Cardiovascular: Regular rate and rhythm. No murmurs, no rubs. No gallops. Abdomen: Soft, nontender. Bowel sounds are present. Extremities: No pedal edema. RV SERVICE TECHNICIAN: Patient is alert, oriented. There is no focal neurological deficit. Laboratory Data: WBC is 10.55, hemoglobin is up to 8. This is after 2 PRBC transfusion. Platelet count is 291,000. Sodium is 140, potassium is 4.2, chloride is 108, bicarb is 19, creatinine is down to 1.5. ASSESSMENT: 1. Severe iron deficiency anemia. 2. Anemia of chronic gastrointestinal blood loss. 3. Acute on chronic kidney injury. 4. Questionable urinary tract infection. 5. Altered mental status secondary to global encephalopathy. 6. Questionable underlying dementia. 7. Dehydration, improved. 8. Bilateral crepitations, likely due to fluid overload. 9. Diabetes mellitus. PLAN: 1. We are going to start the patient on p.o. iron with docusate. 2. We are going to discontinue the IV fluids since patient seems to be retaining in the lungs. Would encourage oral hydration. 3. We are going to discontinue the Hernandez catheter. 4. Would encourage the patient to sit up in chair. 5. Consult PT for early ambulation. 6. The patient has been evaluated by GI, and pending EGD and colonoscopy for tomorrow. 7. In terms of the diabetes, currently controlled on insulin regimen. 8. Discontinue the Antibiotic if urine culture is negative [facility]
[2016-07-07] MEDS ORDERED: GOLYTELY PO ONE (14:00)
[2016-07-07] MEDS: TYLENOL PO PRN (22:31)
[2016-07-08 06:04] LABS: HEMATOCRIT 26.2 % (37.0-47.0); HEMOGLOBIN 7.8 g/dL (12.0-16.0); MCH 22.9 PG (27-31); MCHC 29.8 g/dL (33-37); MCV 77.1 FL (81-99); MPV 8.9 FL (7.4-10.4); RBC 3.4 XMIL (4.2-5.4)
[2016-07-08 06:15] LABS: CALCIUM 7.9 mg/dL (8.8-10.2); POTASSIUM 5.1 mmol/L (3.5-5.1)
[2016-07-08] MEDS: HUMALOG SUBQ SCH (06:15)
[2016-07-08] MEDS: SODIUM CHLORIDE 0.9% INJ SCH (09:33)
[2016-07-08] MEDS: PROTONIX IV SCH (09:33)
--- NOTE | 2016-07-08 11:38 | PROGRESS NOTE ---
DATE: 07/08/2016 SUBJECTIVE: This morning Ms. Nava referred to be doing a whole lot better. Denies any diarrhea. Denies any bloody stool or vomiting blood. The patient is relatively stable. She was waiting for her endoscopy. OBJECTIVE: Vital signs: Blood pressure is 153/69, pulse of 77, respirations 18 , temperature is 98.1 degrees. General: Ms. Nava is an 89-year-old female. She was in bed. She did not seem to be in any distress. HEENT: Mucosa is pink and moist. Anicteric. Acyanotic. Neck: Supple. Chest: Good air entry bilateral. Just a few crepitations in the posterior lung field. Cardiovascular: Regular rate and rhythm. There are no murmurs. No rubs. No gallops. Abdomen: Soft, nontender. There is no hepatosplenomegaly. An old infraumbilical surgical scar was present. Extremities: No pedal edema. 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 There is no focal neurological deficit. LABORATORY DATA: WBC is 9.40, hemoglobin is 7.8, platelet count of 374,000. Sodium is 140, potassium is 5.1, chloride is 107, bicarb is 20, creatinine is 1.3. ASSESSMENT: 1. Severe iron deficiency anemia. 2. Anemia of chronic gastrointestinal blood loss. 3. Acute on chronic kidney injury, improved. 4. Altered mental status on presentation due to global encephalopathy, likely due to anemia. 5. Questionable underlying dementia. 6. Diabetes mellitus, stable. PLAN: The patient is pending an EGD and colonoscopy today. Will continue with the PPI and continue with the insulin for diabetes coverage. Depending on the results of the EGD and colonoscopy, we might be able to discharge the patient soon if her hemoglobin and hematocrit are stable. 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 He will take patient to OR and resect colon He also agrees to low dose Heparin NO BOLUSES after surgery. No need for IVC filter. Start full Heparin anticoagulation 24hours after surgery. [facility]
[2016-07-08] MEDS ORDERED: MYLICON DROPS (DOSE) MISC ONE (16:23)
[2016-07-08] MEDS ORDERED: DIPRIVAN 1% ONE (17:29)
[2016-07-08] MEDS ORDERED: ALBUMIN 25% ONE (21:16)
[2016-07-08] MEDS ORDERED: MEFOXIN 2 GM/NS 50 ML IV ONE (21:20)
[2016-07-08 21:34] LABS: INR 1.07; PROTIME 11.4 Seconds (9.2-11.7)
--- NOTE | 2016-07-08 21:34 | OPERATIVE NOTE ---
PROCEDURE DATE: 07/08/2016 REFERRING PHYSICIAN: Mike Galvan M.D. INDICATION FOR PROCEDURE: 1. Anemia. 2. New fecal incontinence. 3. Altered mental status at the time of admission now resolved. PROCEDURE PERFORMED: 1. Colonoscopy with polypectomy. 2. Colonoscopy with biopsy. 3. Colonoscopy with Margie ink tattoo placement. 4. Colonoscopy with control of bleeding. CONSENT: Informed consent was obtained from the patient prior to the procedure. The risks, benefits and alternatives were discussed with the patient and her granddaughter. MEDICATION: The patient received monitored anesthesia care. PERFORMING PHYSICIAN: Paige Kilpatrick M.D. ASSISTANTS: 1. ST. Daily 2. Sheridan Unger RN. 3. Finesse Cervantes CRNA. 4. West Oglesby M.D. (anesthesia). COMPLICATIONS: There were no complications. ESTIMATED BLOOD LOSS: 2-3 mL due to actively bleeding ascending colon mass that was found at the time of the procedure. There was minimal blood loss directly related to the procedure. SPECIMENS REMOVED: 1. Cecal polyp. 2. Ascending colon mass biopsies. CECAL INTUBATION TIME: 12 minutes. WITHDRAWAL TIME: 24 minutes. PREP QUALITY: Fair to poor. FINDINGS: After the EGD was performed, the patient was repositioned. The pediatric colonoscope was inserted to the cecum. The appendiceal orifice and ileocecal valve appeared endoscopically normal. There was a 5-10 mm cecal base polyp that was removed using snare cautery. Upon withdrawal there was a near circumferential ascending colon mass that was necrotic with active bleeding and a central ulcer that was deep and cratered. Hemostasis of the actively bleeding areas of the ulcerated mass were achieved with black wire cautery. Multiple biopsies were taken. The biopsy sites were cauterized postbiopsy to prevent bleeding. In addition, Margie ink tattoo 0.5 mL x4 was placed on the proximal surface and 0.5 mL x4 mL of Margie ink tattoo was placed on the distal surface. Upon withdrawal, there was fonseca diverticulosis. There were greater than 20 benign appearing polyps that ranged in size from 5-20 mm that remained intact in the colon. In the descending and sigmoid colon, there was complex branching diverticulosis but no evidence of diverticulitis. In the upper rectum, there were internal hemorrhoids, grade 2. On retroflexed view, there were medium external hemorrhoids. After the exam was complete, the lumen was decompressed and the scope was removed without incident. IMPRESSION: 1. 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 2. Multiple colon polyps throughout the colon. 3. Fonseca diverticulosis. 4. Internal hemorrhoids, grade 2. 5. External hemorrhoids, medium. RECOMMENDATION: 1. Await biopsy results. 2. Will obtain a chest, abdomen and pelvis CT. She will need reduced contrast in light of her ongoing kidney disease. 3. Please obtain a CEA stat. 4. Will obtain a surgical consult with Dr. Francisco Erickson. 5. I spoke with Dr. Rosio Anderson from Hematology/Oncology who will also see the patient. 6. Please begin Protonix and Carafate for treatment of her upper GI findings. 7. Our results were discussed with the patient who expressed understanding, her granddaughter Lynn Tejeda ([phone]) Dr. Galvan, Dr. Erickson and Dr. Rosio Anderson. 8. Additional recommendations to be based on the results of her CT findings and her clinical course. [facility] INSAN[facility]manuel
[2016-07-08 21:35] LABS: BASO% 0.4 % (0.0-0.8); EOS# 0.46 X1000 (0.0-0.7); HEMOGLOBIN 8.8 g/dL (12.0-16.0); IMM GRAN# 0.02 X1000 (0.0-0.04); IMM GRAN% 0.2 % (0.0-0.5); LYMPH# 3.13 X1000 (1.2-3.4); LYMPH% 27.5 % (20.5-51.1); MANUAL DIFF NEEDED? YES; MCH 22.7 PG (27-31); MCHC 30.3 g/dL (33-37); MCV 74.9 FL (81-99); MONO% 10.5 % (1.7-9.3); MPV 8.9 FL (7.4-10.4); NEUT% 57.4 % (42.2-75.2); PLT 411 X1000 (130-400); RBC 3.87 XMIL (4.2-5.4)
[2016-07-08 21:41] LABS: BANDS 4 % (0-1); HYPOCHROM 2+; LYMPHS 28 % (21-51); MONO 12 % (1-9); POLYCHROM OCCASIONAL
[2016-07-08] MEDS ORDERED: MEFOXIN 2 GM/NS 50 ML ONE (21:42)
[2016-07-08 21:50] LABS: ALBUMIN 3.3 g/dL (3.5-5.0); CALCIUM 8.6 mg/dL (8.8-10.2); POTASSIUM 4.8 mmol/L (3.5-5.1); TOTAL BILIRUBIN 0.53 mg/dL (0.20-1.00); TOTAL PROTEIN 6.7 g/dL (6.3-8.3)
[2016-07-09 00:05] LABS: URINE MICRO REVIEW NEEDED? NO; URINE SOURCE CATH
[2016-07-09] MEDS ORDERED: VERSED ONE (00:38)
[2016-07-09] MEDS ORDERED: FENTANYL ONE (00:38)
[2016-07-09] MEDS ORDERED: DIPRIVAN 1% IV PRN (01:00)
[2016-07-09 01:08] LABS: UR EPITHELIAL CELLS <10 /HPF (<10); URINE BACTERIA NEGATIVE /HPF; URINE RBC <10 /HPF (<10); URINE WBC <10 /HPF (<10)
[2016-07-09 01:16] LABS: BILIRUBIN URINE NEGATIVE (NEGATIVE); BLOOD URINE NEGATIVE (NEGATIVE); COLOR STRAW; GLUCOSE URINE NEGATIVE (NEGATIVE); LEUKOCYTES URINE NEGATIVE (NEGATIVE); NITRITE URINE NEGATIVE (NEGATIVE); PH URINE 6.5; PROTEIN URINE 20 mg/dL (NEGATIVE); SP GRAVITY URINE 1.016; TURBIDITY URINE CLEAR (CLEAR); UROBILINOGEN URINE NORMAL (NORMAL)
[2016-07-09 01:17] LABS: ALLEN TEST YES; BLOOD TYPE ARTERIAL; DRAW SITE L RADIAL; METHB 1.5 % (0.0-1.5); O2(CT) 15.1 mL/dL (15.0-23.0); PCO2(98.6) 35 mmHg (35-45); PO2(98.6) 185 mmHg (60-100); SAMPLE BLOOD; SAO2 98.6 % (95.0-100.0); SRATE 12 BPM; THB 10.9 g/dL (11.5-17.4); TVOL 600 mL; pH(98.6) 7.36 (7.35-7.45)
[2016-07-09 01:18] LABS: MODALITY VENTILATOR
[2016-07-09] MEDS: NS 1,000 ML IV SCH ×2 (01:31→22:49)
[2016-07-09] MEDS ORDERED: DIPRIVAN 1% 100 ML IV SCH (02:00)
[2016-07-09] MEDS: PERICOLACE PO SCH ×4 (02:22→22:48)
[2016-07-09] MEDS: LEVEMIR SUBQ SCH ×2 (02:22→09:55)
[2016-07-09] MEDS: FERROUS SULFATE PO SCH ×4 (02:22→22:48)
--- NOTE | 2016-07-09 02:22 | Diag Imaging Result Document ---
PROCEDURE NAME: THORAX/ABDOMEN/PELVIS - 07/08/2016 STUDY: CT chest, abdomen and pelvis with intravenous contrast. PROTOCOL: Dose reduction protocol. COMPARISON: No comparison films. CT chest with contrast: There are bilateral upper lobe arterial filling defects as well as filling defects in several branches in the right lower lobe. The heart is not enlarged. Trace pericardial effusion. No pleural effusions. No thoracic aortic aneurysm or dissection. There are calcified right hilar lymph nodes. No consolidation. Minimal peripheral increased markings believed to be fibrosis. No consolidation. No distinct lung nodules. IMPRESSION: 1. Bilateral upper lobe pulmonary emboli and right lower lobe pulmonary emboli. 2. Increased interstitial markings in the periphery of the lower lungs believed to be fibrosis. CT abdomen and pelvis: There is fatty infiltration of the liver. No distinct focal hepatic abnormality. The spleen is not enlarged. The gallbladder is distended, but no adjacent inflammation. No inflammation about the pancreas. Normal adrenal glands. There are several small renal cysts. No hydronephrosis. Moderate prominent atherosclerosis. There is a circumferential lesion in the proximal ascending colon with what appears to be extraluminal gas laterally. No well-defined abscess. There are scattered diverticula. The urinary bladder is only mildly distended. A small amount of free fluid is found in the pelvis. A large amount of metallic artifact is present in the pelvis from bilateral hip prostheses. I believe the uterus has been removed. Scoliosis with prominent degenerative spine changes. IMPRESSION: 1. Circumferential ascending colon lesion with a lateral perforation but no abscess. 2. Fatty infiltration of the liver, possible cirrhosis. 3. Distended gallbladder. 4. Diverticulosis. 5. Hysterectomy. A preliminary report was given at 7:17 p.m. This was called to Dr Abernathy [facility]
[2016-07-09] MEDS: HUMALOG SUBQ SCH ×5 (02:23→21:11)
[2016-07-09] MEDS: MUCOMYST 20% PO SCH ×3 (02:25→22:48)
[2016-07-09] MEDS: PROTONIX IV SCH ×3 (02:26→21:12)
--- NOTE | 2016-07-09 03:04 | PROGRESS NOTE ---
DATE: 07/08/2016 SUBJECTIVE: Following the EGD and colonoscopy today, the patient states that she feels fine. On EGD, she was found to have erosive esophagitis, gastritis and duodenitis. Her colonoscopy was remarkable for an ascending colon mass with active bleeding and a central necrotic-appearing ulcer. She also had multiple benign-appearing polyps throughout the colon, diverticulosis, internal hemorrhoids and external hemorrhoids. However, her CT scan this evening is remarkable for bilateral pulmonary emboli, cirrhosis, penetration of the mass through the ascending colon wall with localized free air as well as the diverticulosis. OBJECTIVE: On exam, her granddaughter who is at bedside notes that the patient had a right mastectomy as noted on the history. This needs to be added to her past surgical history in my dictation. General: On exam, the patient is resting comfortably and denies symptoms. She states that she feels well enough to go home. Vital signs: Her blood pressure is 161/77, pulse 93, respiration 18, temperature of 98 degrees. On oxygen saturation is 100% on room air. Pulmonary: Are clear to auscultation with normal expiratory effort. Cardiovascular: Reveals regular rate and rhythm with no gallops or rubs. Abdominal: Reveals normoactive bowel sounds. The abdomen is soft and nontender. Extremities: Bilaterally are negative for cyanosis, clubbing, or edema. There is no evidence of palpable deep vein thrombosis or Ana Luisa's sign. Neurologic: She is alert and oriented x3. Appropriate mood, affect, and memory. RECOMMENDATION: 1. Because of the computed tomography scan findings, I recommend surgical intervention. Dr. Erickson from Surgery and Dr. Oglesby from Anesthesia were notified. Her granddaughter is at bedside and after a lengthy discussion, they feel that they would prefer to proceed with surgery in light of the diagnosis. 2. She is aware that the mass appears to be a adenocarcinoma and would like treatment. She states that she did well after her mastectomy and would like to pursue treatment. 3. I spoke with Dr. Rosio Anderson who will see the patient in the morning. 4. With regard to the pulmonary emboli, it is unclear how long she has had emboli in light of her asymptomatic state. Dr. Erickson will plan to perform an ultrasound to determine if she has a deep venous thrombosis. If the deep venous thrombosis is present, they will plan to place a filter. In the absence of a deep venous thrombosis, he will plan to begin low-dose anticoagulation immediately postoperative. She will then require full anticoagulation for treatment of the pulmonary embolus. 5. Intensive care unit was contacted and a bed has been secured for transfer. 6. The blood bank was contacted and 4 units of blood are available and on hold for her in the event that she requires transfusion. 7. Updated labs, including a complete metabolic panel, complete blood count, PT and PTT were ordered. 8. Of note, her CEA is available and was noted to be elevated at 7.3, which is consistent with adenocarcinoma. 9. Additional recommendations to follow based on her clinical course and postoperative clinical status. [facility]
[2016-07-09] MEDS: MEFOXIN 2 GM/NS 50 ML IV SCH ×4 (03:43→21:11)
--- NOTE | 2016-07-09 03:49 | OPERATIVE NOTE ---
PROCEDURE DATE: 07/08/2016 REFERRING PHYSICIAN: Mike Galvan M.D. INDICATION FOR PROCEDURE: 1. Anemia. 2. New fecal incontinence. 3. Altered mental status on admission with subsequent resolution. PROCEDURE PERFORMED: Esophagogastroduodenoscopy with biopsy. CONSENT: Informed consent was obtained from the patient prior to the procedure. The risks, benefits, and alternatives were discussed with the patient and her granddaughter. MEDICATION: The patient received monitored anesthesia care. PERFORMING PHYSICIAN: Paige Kilpatrick M.D. ASSISTANTS: 1. ST. Daily 2. Sheridan Unger RN. 3. Finesse Cervantes CRNA. 4. [place] M.D. (anesthesia). COMPLICATIONS: There were no complications. ESTIMATED BLOOD LOSS: Less than 1 mL. SPECIMEN REMOVED: None. FINDINGS: After sedation was achieved, the upper endoscope was inserted to the 2nd portion of the duodenum. The hypopharynx appeared endoscopically normal. The upper and middle esophagus appeared normal. There was grade B erosive esophagitis with a superficial ulcer at the GE junction as well as a Schatzki's ring. The lumen was widely patent. The GE junction was measured at 40 cm from the incisors. There was a hiatal hernia from 40-42 cm. In the gastric lumen, there was erosive gastritis in the antrum, fundus, and body. In the antrum, there was a superficial whitish base ulcer with no stigmata of bleeding. The pylorus was inflamed but widely patent. In the duodenum, there was duodenitis. In light of the fact that the patient presented with a hemoglobin of 5.6, no biopsies were taken. The lumen was decompressed and the scope was removed without incident. IMPRESSION: 1. Grade B erosive esophagitis. 2. Schatzki's ring. 3. Superficial esophageal ulcer at the gastroesophageal junction. 4. Hiatal hernia. 5. Erosive gastritis. 6. Antral ulcer. 7. Duodenitis. 8. No source of active bleeding found. RECOMMENDATION: 1. I will begin the patient on Protonix 40 mg IV q.12 hours. Depending on her colonoscopy results, she may also benefit from Carafate 1 g 4 times a day for approximately 12 weeks. 2. Additional recommendations to follow based on her colonoscopic findings. [facility]
--- NOTE | 2016-07-09 04:11 | CONSULTATION ---
DATE OF CONSULTATION: 07/08/2016 REQUESTING PHYSICIAN: Paige Kilpatrick MD REASON FOR CONSULTATION: Ascending colon mass. HISTORY OF PRESENT ILLNESS: An 89-year-old, female with a history of diabetes, chronic kidney disease ,hypertension, all currently untreated, who is presenting with profound anemia. She underwent a colonoscopy and found to have an ascending colon mass. In the immediate post colonoscopy period, she had a CT scan that showed the mass potentially invading into the sidewall. There was some concern of free air, although the patient denies any kind of abdominal pain. She also has what appears to be multiple pulmonary embolisms. Although the patient denies any kind of increase shortness of breath. She apparently lives at home by herself. She is able to do most of her daily activities. Currently, the patient is alert interactive. Denied any kind of shortness of breath or chest pain or abdominal pain. I reviewed her CT scan. I discussed this extensively with the granddaughter and the patient. PAST MEDICAL HISTORY: Include hypertension, type 2 diabetes, questionable dementia, history of breast cancer. PAST SURGICAL HISTORY: Includes previous mastectomy, bilateral hip arthroplasty , hysterectomy and recent colonoscopy. SOCIAL HISTORY: Patient lives alone. Does not smoke. Denies illicit drugs or alcohol. FAMILY HISTORY: Reviewed. Patient not currently noncontributory. HOME MEDICATIONS: None reported. ALLERGIES: None reported. REVIEW OF SYSTEMS: A full 10 point review of systems obtained. Of note, patient does say that after she walks about 15 feet, she does get short of breath. She also complained of significant left shoulder pain that has been persistent. PHYSICAL EXAMINATION: Vital Signs: The patient is currently afebrile. Temperature 98.4 degrees, pulse 96, respiratory rate 16 and nonlabored, blood pressure 164/79, O2 saturation 98%. General: No acute distress. Alert, interactive female, looks stated age. HEENT: Normocephalic, atraumatic. Pupils equal, round, react to light. Mucous membranes moist. Oropharynx benign. Neck: Supple. Trachea midline. Cardiovascular: Regular rate and rhythm. Lungs: Grossly clear. No increased labored breathing. Abdomen: Soft, nondistended, nontender at this time. Extremities: Moves all extremities. Neurologic: Grossly intact. Skin: No signs of jaundice. Vascular: All extremities perfused. LABORATORIES AND DIAGNOSTICS: Of note, patient's white blood cell count is 9, hematocrit is 26.2, platelet count 374,000. Remainder of labs reviewed. Of note, patient's CEA is 7.3. CT scan independently reviewed and radiology report reviewed. Details as noted above. ASSESSMENT/PLAN: This is an 89-year-old, female with an ascending colon mass and pulmonary embolism. 1. Ascending colon mass. At this time, the concern is of free air and the size of the mass. We will plan on surgical intervention. Discussed with the family. The overall risk of morbidity associated with this procedure given her age and her comorbidities was discussed with the family. The potential for long-term ventilatory support and the potential that she might have a cardiac event during the procedure. Both the patient and the granddaughter voiced that they understood these risks and that the still wanted to proceed with the procedure. We will schedule for surgery. 2. Pulmonary embolism. At this time, unsure the exact age of the pulmonary embolism. Patient is not currently with symptoms. Given that, we will plan on postoperative ultrasound of bilateral lower extremities and plan to anticoagulate the patient after the surgery. Discussed the risk of the pulmonary embolism and the DVT with the granddaughter and the patient. They voiced understanding and want to proceed with surgery. All this was discussed extensively with the patient and the granddaughter. I appreciate the consult. [facility]
[2016-07-09 04:37] LABS: ALLEN TEST YES; BE -3.6 mmoll (-3.0-3.0); BLOOD TYPE ARTERIAL; DRAW SITE L RADIAL; METHB 1.1 % (0.0-1.5); O2(CT) 14.5 mL/dL (15.0-23.0); PCO2(98.6) 29 mmHg (35-45); PO2(98.6) 188 mmHg (60-100); SAMPLE BLOOD; SAO2 98.9 % (95.0-100.0); SRATE 12 BPM; THB 10.4 g/dL (11.5-17.4); TVOL 600 mL; pH(98.6) 7.44 (7.35-7.45)
[2016-07-09 04:39] LABS: MODALITY VENTILATOR
--- NOTE | 2016-07-09 06:02 | OPERATIVE NOTE ---
PROCEDURE DATE: 07/08/2016 PREOPERATIVE DIAGNOSES: 1. Bleeding colon mass with possible perforation on CT scan. 2. Multiple pulmonary emboli of unknown age. POSTOPERATIVE DIAGNOSES: 1. Bleeding colon mass with possible perforation on CT scan. 2. Multiple pulmonary emboli of unknown age. PROCEDURE PERFORMED: 1. Exploratory laparotomy. 2. Open right hemicolectomy with ileocolonic anastomosis. SURGEON: Ravi Erickson MD. DIRECTOR VOLUNTEER SERVICES: Carla Mckinney ([place] student). ANESTHESIA: General endotracheal. INTRAOPERATIVE FINDINGS: Colon mass noted and palpated. There were also some questionable enlarged lymph nodes here. The liver also appeared to be nodular. I did not feel any metastatic disease or carcinomatosis. COMPLICATIONS: None at time of dictation. ESTIMATED BLOOD LOSS: 150 mL. SPECIMENS REMOVED: Right colon. BRIEF HISTORY: The patient is an 89-year-old, female who had a bleeding colon mass on a CT scan and was found to have a potential for perforation near the colonic mass. She also was noted to have multiple pulmonary emboli. Given the fact that it was bleeding and a possible perforation, we felt that this was an acute issue for the patient. She had not suffered any physiologic detriment from the pulmonary emboli. Given this, we elected to remove the colon first and evaluate her pulmonary emboli secondary. This was discussed with the hospitalist service who agreed. This was also extensively discussed with the family who agreed. We had a long, lengthy discussion about her overall morbidity, given her age and underlying comorbidities, and they wanted to proceed with surgery. DESCRIPTION OF PROCEDURE: After informed consent was obtained, the patient was brought to the operative theatre and transferred to the operative table, placed in a supine position. General endotracheal anesthesia was then performed without complication. A formal time- out was then performed, confirming patient, date, procedure. All were in agreement. At that time, attention was given to the abdomen. A standard midline incision was made through which we entered the abdomen. Upon entering the abdomen, there was some scar tissue from her previous surgeries which we took down sharply. Once were able to do this, we were able to identify the right colon mass which had been tattooed by Dr. Kilpatrick. We examined the remainder of the abdomen. There were some mildly enlarged lymph nodes noted. The liver appeared to be nodular. At that time, we elected to perform a right hemicolectomy. We did this by mobilizing the right colon along the white line of Toldt. I then made a window in the base of the terminal ileum, fired a stapler. We also made a window in the base of the transverse colon and fired the stapler also. There was bleeding noted at both ends. We removed the colon with a LigaSure. Maintained hemostasis with electrocautery and suture ligation. Once we had done this, we evaluated the two ends. They appeared to be viable. We elected to perform a 2-layer hand-sewn end-to-end anastomosis of the ileocolonic. We performed this with 3-0 silk and 3-0 vicryl with good results. The lumen was patent. We closed the mesenteric defect with interrupted stitches. We irrigated out the abdomen copiously. We maintained hemostasis with electrocautery. We then closed the abdomen in layers using chromic for the peritoneum and looped PDS for the fascia, and jayne for the skin. The patient remained intubated and was transferred to the ICU still in critical condition. Postoperatively, we will start the patient on low-dose heparin, get an ultrasound of her lower extremities. If she does have a DVT, we will likely be able to, in the next 24- 48 hours, start her on full strength heparin. [facility]
[2016-07-09] MEDS: DIPRIVAN 1% 100 ML IV SCH ×4 (07:03→23:30)
--- NOTE | 2016-07-09 07:26 | PROGRESS NOTE ---
DATE: 07/09/2016 SUBJECTIVE: The patient was relatively stable through the course of the night. No major issues reported by the nursing staff. She is still on the ventilator and still sedated. OBJECTIVE: Vital Signs: Patient is currently afebrile. Temperature 98.2 degrees, pulse regular at 59, respiratory rate on the ventilator, blood pressure 107/54. General Examination: Sedated, on the ventilator. Abdomen: Soft, nondistended. Dressing in place. Extremities: No signs of cyanosis or phlegmasia. Laboratory: Currently pending. Ultrasound of the lower extremities currently pending. ASSESSMENT/PLAN: An 89-year-old, female, status post open right hemicolectomy with multiple pulmonary embolisms. 1. Status post right hemicolectomy. At this time, the patient remained sedated on the ventilator. We will defer to pulmonary who is monitoring the patient, as far as weaning the ventilator. She does have significant medical comorbidities and pulmonary emboli so we will monitor her closely. We will start regular heparin at 8 o'clock this morning and may consider full strength anticoagulation in the next 24 hours. 2. Pulmonary embolism. At this time, unsure of the exact timing of pulmonary embolisms. She has been relatively asymptomatic from her standard baseline with these. Unsure if this represents an acute process versus a subacute or chronic process. I discussed with the granddaughter over the phone extensively the overall plan for the patient. At this time, given the fact that we cannot date the pulmonary embolism, we elected to proceed with the colon resection 1st which we knew was an acute problem. The ultrasound of the bilateral lower extremities is pending. If there is a blood clot, may consider full strength heparin in the next 24 hours. If there is no clot noted, we will consider continuing prophylactic anticoagulation. This was all discussed with the granddaughter. Also discussed the possibility that if she does have a deep venous thrombosis and we do full strength anticoagulation, she might bleed at the surgery site. She is aware of this and voices understanding with the above plan.
--- NOTE | 2016-07-09 07:49 | Diag Imaging Result Document ---
PROCEDURE NAME: CHEST-PORTABLE - 07/09/2016 SINGLE FRONTAL RADIOGRAPH OF THE CHEST AND UPPER ABDOMEN: COMPARISON: 07/06/2016. FINDINGS: The newly placed ET tube projects over the trachea and above the terrance at about the T5 level. The NG tube projects below the diaphragm and is assumed to be in the stomach in the expected position. The lungs are overexposed but appear to be approximately stable. Cardiac silhouette is stable. IMPRESSION: Interval placement of NG tube and ET tube as described.
[2016-07-09] MEDS ORDERED: HEPARIN SUBQ SCH (08:00)
[2016-07-09] MEDS: CLINIMIX E 4.25%-5% SOLUTION 1,000 ML IV SCH ×2 (08:32→18:09)
[2016-07-09] MEDS: HEPARIN 25,000 UNITS/D5W 250 ML IV SCH (08:33)
[2016-07-09] MEDS ORDERED: OFIRMEV 1000 MG/ISOTONIC SOLN 100 ML ONE (08:37)
[2016-07-09] MEDS ORDERED: ROBINUL ONE (08:37)
[2016-07-09] MEDS ORDERED: AMIDATE ONE (08:37)
[2016-07-09] MEDS ORDERED: XYLOCAINE-MPF 2% ONE ×2 (08:37→09:41)
[2016-07-09] MEDS ORDERED: BLOOD SET Y-TYPE 8949 ONE (08:37)
[2016-07-09] MEDS ORDERED: DECADRON ONE (08:37)
[2016-07-09] MEDS ORDERED: NORCURON ONE (08:37)
[2016-07-09] MEDS ORDERED: QUELICIN (DOSE) ONE (08:37)
[2016-07-09] MEDS ORDERED: LR 2,000 ML ONE (08:37)
--- NOTE | 2016-07-09 08:59 | PROGRESS NOTE ---
DATE: 07/09/2016 SUBJECTIVE: This is an 89-year-old female who presented with altered mental status, apparently a history of diabetes mellitus, kidney disease, hypertension, which was untreated. The patient lived alone. Checked on occasionally by granddaughter. Per granddaughter, for the past few weeks, the patient has become more confused and seemingly not taking care of herself. She found her grandmother in a car parked outside of her front yard and when the granddaughter asked what she was doing, she kept answering "I do not know." PAST MEDICAL HISTORY: Hypertension, diabetes mellitus, poor medical compliance by history, questionable dementia. She was admitted with encephalopathy of unknown etiology. Found with profound anemia, hypovolemia, hyponatremia, non-anion gap metabolic acidosis probably secondary to renal insufficiency, suspected acute kidney [id number] kidney with chronic kidney disease, untreated diabetes, urinary tract infection, poor living environment was noted. The patient admitted to the hospital. 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 Dr. Erickson took her for a right hemicolectomy. He was concerned about some leg swelling and possible DVT and found a pulmonary embolism, so she will go for inferior vena cava filter today. Plan to anticoagulate as well. Found a pulmonary embolism and DVT, so she is in intensive care right now. PHYSICAL EXAMINATION: Intubated, sedated, unresponsive. Vital Signs: Temperature 98.2 degrees, pulse 92, respirations 12, blood pressure 90/55. Lungs are clear in all lung okeefe anterolateral. Cardiovascular: Regular rhythm and rate without murmur or S3. Urine output was over 3 L which is good. LABORATORY DATA: Lab from yesterday reviewed. Hematocrit stable at 29. Electrolytes unremarkable. ASSESSMENT AND PLAN: 1. CT findings revealed pulmonary thromboemboli. Will get an inferior vena cava filter today. 2. Status post right hemicolectomy. Dr. Rosio Anderson is following. 3. Apparently, she has a history of mastectomy in the past for breast cancer. 4. Altered mental status. Metabolic encephalopathy. Suspect underlying dementia, multifactorial. Continue to follow. 5. Anemia, multifactorial. Prior chronic disease and also recent blood-loss anemia. Continue to follow her hematocrit. 6. Renal function appears to be stable. Good urine output. Serum creatinine 1.3. REVIEW OF ORDERS: I do not see any change. She is on cefoxitin 2 g q.6 pulmonary involved. We will wean as able. She is on iron 325 mg b.i.d., Protonix 40 mg IV b.i.d., and they had put her on heparin 5000 units subcutaneously q.8 hours.
[2016-07-09 09:01] LABS: HEMATOCRIT 32.1 % (37.0-47.0); HEMOGLOBIN 10.1 g/dL (12.0-16.0); MCH 24.6 PG (27-31); MCHC 31.5 g/dL (33-37); MCV 78.3 FL (81-99); MPV 9.2 FL (7.4-10.4); RBC 4.1 XMIL (4.2-5.4)
[2016-07-09 09:16] LABS: CALCIUM 7.7 mg/dL (8.8-10.2); POTASSIUM 4.3 mmol/L (3.5-5.1)
[2016-07-09] MEDS ORDERED: SODIUM CHLORIDE 0.9% 10 ML ONE (09:16)
--- NOTE | 2016-07-09 09:42 | ECHO REPORT ---
ORDER DATE: 07/09/2016 INTERPRETING PHYSICIAN: Dr. Scotty Byrnes. ECHOCARDIOGRAPHIC MEASUREMENTS: 1. Intraventricular septum: 1.6 cm. 2. Left ventricular posterior wall: 1.0 cm. 3. Diastolic diameter: 4.0 cm. 4. Left atrium: 4.7 cm. 5. Aortic root: 2.9 cm. SUMMARY OF THE 2-DIMENSIONAL IMAGIN. Normal left ventricular cavity size. Significant basal septal hypertrophy of the left ventricle with an estimated ejection fraction of 35%. There is apical akinesis. 2. Aortic valve leaflets are trileaflet. Mitral valve is normal. Tricuspid valve is normal. Pulmonic valve is normal. 3. Peak velocity across the aortic valve less than 2 m/sec. There is a possible mild LVOT gradient. Valsalva could not be performed. 4. There is no obvious aortic stenosis or regurgitation. There is mild mitral regurgitation and mild tricuspid regurgitation. Peak velocity across the tricuspid valve was 2.8 m/sec. Pulmonary artery systolic pressure 40 mmHg. There is no pericardial effusion or obvious intracardiac mass or thrombus.
[2016-07-09] MEDS ORDERED: INSULIN PEN NEEDLES ONE (09:53)
--- NOTE | 2016-07-09 11:45 | CONSULTATION ---
DATE OF CONSULTATION: 07/09/2016 REQUESTING PHYSICIAN: Dr. Erickson. REASON FOR CONSULTATION: Respiratory failure following surgery, pulmonary emboli. HISTORY OF PRESENT ILLNESS: Ms Nava is an 89-year-old white female, who was previously followed by Dr. Miranda, but has not seen a physician in over a year. The patient has hypertension and diabetes, and was found by her granddaughter to have confusion. The patient presented to the emergency room and was found to have significant anemia with a hemoglobin of 5.4 with evidence of iron deficiency. The patient underwent an EGD which revealed esophagitis with superficial esophageal ulcer and erosive gastritis, along with an antral ulcer and duodenitis, but no evidence of active bleeding. She underwent a colonoscopy, which revealed an ascending colon mass which was necrotic and actively bleeding. CT scan of the abdomen and pelvis was performed which revealed bilateral upper lobe emboli and a right lower lobe emboli. There was contrast surrounding the right lower lobe emboli. CT scan of the abdomen revealed a circumferential ascending colon mass with a lateral perforation, but no abscess. The patient was taken to the operating room by Dr. Erickson, and an open right hemicolectomy with ileocolonic anastomosis was performed. PAST MEDICAL HISTORY/PROBLEM LIST: 1. Diabetes mellitus. 2. Chronic renal insufficiency. 3. Questionable history of dementia. 4. Status post hysterectomy. 5. Status post bilateral hip arthroplasty. SOCIAL HISTORY: Nonsmoker. No alcohol use listed. She currently was living by herself. REVIEW OF SYSTEMS: Cannot be obtained. PHYSICAL EXAMINATION: General: Reveals a chronically ill-appearing, white female, on mechanical ventilation. Vital signs: Blood pressure 141/67, heart rate 94, respiration rate 20 and unlabored, oxygen saturation 99%. HEENT: Pupils are equal and reactive. Oropharynx is clear. Neck: Supple. Chest: Reveals good air entry bilaterally without wheezing or rhonchi. Cardiac Exam: Regular rate. Normal S1, normal S2. No ventricular heave is appreciated. Abdomen: Soft with post surgical dressing in place. Extremities: Without edema. LABORATORIES/X-RAYS: Chest x-ray reveals good position of nasogastric tube, endotracheal tube. White blood count 19.8 thousand, hemoglobin 10.1, platelet count 279,000. Chemistry: Sodium 135, potassium 4.3, chloride 103, bicarbonate 18, anion gap 13, BUN 11, creatinine 1.5. Arterial blood gas reveals a pH 7.44, pCO2 of 29, PO2 of 188. IMPRESSION: An 89-year-old with pulmonary emboli, ascending colonic mass consistent with and suspicious for an adenocarcinoma, severe anemia, who presented with altered mental status. Hemodynamically she is doing well following the surgery and is requiring no vasopressors with pulmonary emboli and deep vein thrombosis. The question at hand is should a filter be placed. Currently she is hemodynamically doing well. I have discussed anticoagulation with Dr. Erickson, and he has agreed to intravenous heparin to be initiated without a bolus. It is my recommendation that an echocardiogram be performed. If she has moderate to severe pulmonary hypertension, then I would recommend placement of a filter today. If she has no evidence of significant pulmonary hypertension, then I would recommend continuing heparin intravenous in the immediate postoperative period until she can be transitioned to another anticoagulation regimen. RECOMMENDATIONS: 1. Continue ventilatory support today. 2. Echocardiogram to evaluate evidence of pulmonary hypertension. 3. Continue intravenous heparin for the next 24-72 hours. 4. Additional recommendations pending hospital course.
--- NOTE | 2016-07-09 14:23 | CONSULTATION ---
DATE OF CONSULTATION: 07/09/2016 REQUESTING PROVIDER: Dr. Kilpatrick. REASON FOR CONSULTATION: Ascending colon mass. HISTORY OF PRESENT ILLNESS: Ms Helen Nava is an 89-year-old female, who initially presented to [facility] with altered mental status. Patient was found by her granddaughter wandering in the front yard very confused. A head CT was done and was found to be negative. Labs revealed the patient to be quite anemic with a hemoglobin of 5.4 and a hematocrit of 19.8. She was admitted to the hospital for further evaluation and treatment. A CT of the chest, abdomen and pelvis revealed the patient to have a circumferential ascending colon lesion with lateral perforation, but no evidence of abscess. The patient has subsequently undergone right hemicolectomy. She is now in the ICU intubated postsurgically. She is also found to have some PTE's on scans and is on heparin. We have been consulted in regards to the ascending colon mass. PAST MEDICAL HISTORY: 1. CKD. 2. Hypertension. 3. Type 2 diabetes mellitus. 4. Previous history of breast cancer. SURGICAL HISTORY: 1. Bilateral hip replacement. 2. Hysterectomy. 3. Mastectomy previously secondary to breast cancer. SOCIAL HISTORY: Lives alone. Denies any alcohol, drug or tobacco use. She is a . REVIEW OF SYSTEMS: As per HPI. All systems are negative or noncontributory. PHYSICAL EXAMINATION: Vital Signs: Temperature 99.1 degrees, heart rate 77, respirations 12, blood pressure 141/67, O2 saturation 99% on ventilator at 40%. General: female lying in hospital bed in ICU intubated and sedated. There is no family at bedside. HEENT: Head appears to be normocephalic, atraumatic. Eyes were not examined as the patient is sedated and cannot be aroused. Ears, nose, throat, neck and mouth: Oral mucosa appears to be normal. Cardiovascular: S1, S2 heard. Regular rate and rhythm. Respiratory: Clear sounds bilaterally. Patient is on a vent. Gastrointestinal: Abdomen is nondistended. NG tube is in place. Extremities: No notable edema x4. Neurologic: Patient is sedated and not arousable. LABORATORY STUDIES: CT chest, abdomen and pelvis as per above in the HPI. White blood cells 19.79, hemoglobin 10.1, hematocrit 32.1, platelets 279. CEA 7.3. Sodium 134, potassium 4.3, chloride 103, CO2 18, BUN 11, creatinine 1.5, glucose 122. ASSESSMENT/PLAN: 1. Ascending colon mass. Pathology is still pending. Will follow up on the pathology. There is no family at bedside at this time to discuss any further planning at this time. 2. Multiple pulmonary thromboembolisms. Patient is currently on heparin. Continue this for now as she is post surgical at this time. Further recommendations for anticoagulation once the patient recovers. 3. Colon perforation, status post right hemicolectomy. Continue management as per Dr. Carrillo. 4. Respiratory failure. Patient is currently post surgical. She is on a ventilator. Pulmonology is following the patient and further recommendations and management per them. 5. Anemia. Patient presented quite anemic at 5.4. Her hemoglobin is up to 10.1. She is status post 4 units of packed red blood cells. We will continue to monitor. No further iron repletion needed at this moment. Vitamin B 12 and folate were within normal limits. 6. Chronic kidney disease. Appears to be overall stable. Continue current management. We want to thank you for this consult and allowing us to participate in Ms. Nava's care. Will continue to follow along and adjust our treatment plan per hospital course. Dictated by SHELIA Uriostegui for Rosio Anderson MD
[2016-07-09] MEDS ORDERED: NS 1,000 ML IV SCH (19:30)
[2016-07-09] MEDS: SODIUM CHLORIDE 0.9% INJ SCH (21:12)
[2016-07-10] MEDS: OFIRMEV 1000 MG/ISOTONIC SOLN 100 ML IV PRN (03:45)
[2016-07-10] MEDS: DIPRIVAN 1% 100 ML IV SCH ×5 (04:32→23:40)
[2016-07-10 05:05] LABS: ALLEN TEST YES; BE -6.2 mmoll (-3.0-3.0); BLOOD TYPE ARTERIAL; DRAW SITE R RADIAL; METHB 0.2 % (0.0-1.5); O2(CT) 10.9 mL/dL (15.0-23.0); PCO2(98.6) 26 mmHg (35-45); PO2(98.6) 156 mmHg (60-100); SAMPLE BLOOD; SAO2 98.9 % (95.0-100.0); SRATE 12 BPM; THB 7.7 g/dL (11.5-17.4); TVOL 600 mL; pH(98.6) 7.43 (7.35-7.45)
[2016-07-10 05:06] LABS: MODALITY VENTILATOR
[2016-07-10] MEDS: CLINIMIX E 4.25%-5% SOLUTION 1,000 ML IV SCH ×2 (06:09→16:28)
[2016-07-10] MEDS: HUMALOG SUBQ SCH ×4 (06:14→20:22)
--- NOTE | 2016-07-10 06:50 | PROGRESS NOTE ---
DATE: 07/10/2016 SUBJECTIVE: Patient relatively stable through the course of the night. Did review her venous ultrasound. 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 The nursing staff reports no major issues. She is still on the ventilator and sedated. OBJECTIVE: Vital Signs: Patient is currently afebrile but had a temperature max of 100. Her pulse is 69, blood pressure 107/50, O2 saturation 99% on the ventilator. General Examination: Sedated but is somewhat responsive. Abdomen: Soft, nondistended. Dressing in place. No bleeding noted. Rectal: No bleeding per rectum noted. Extremities: No signs of cyanosis or phlegmasia. She does have some swelling in her left upper extremity were her IVs are. Laboratory: Currently pending. ASSESSMENT AND PLAN: An 89-year-old, female, now postoperative day #2 from open right hemicolectomy. 1. Postoperative right hemicolectomy. At this time, the patient remains sedated on the ventilator. We will defer to pulmonary for monitoring the patient as far as extubation. She does have significant comorbidities and pulmonary emboli so we will continue to monitor her closely. Hemodynamically, she has been stable, although her urine output has been low. We will check a BMP and her urine output. She does have baseline chronic kidney disease and her urine output has been anywhere from 10 to 15 an hour, although not bloody and not concentrated. We will also ask the peripherally inserted central catheter team to place a peripherally inserted central catheter line. She is on a heparin drip and may need to hold the heparin drip for an hour to make it safe for them to place a peripherally inserted central catheter line. 2. Pulmonary embolisms. At this time, she did have acute to subacute on the left side. Discussed extensively with multiple physicians including Dr. Abraham about the overall risk/benefit ratio of inferior vena cava filter versus heparin drip. I also had an extensive conversation multiple times with the granddaughter about this issue. At this time, we have elected to continue with a heparin drip without a bolus. We discussed that if she shows signs of bleeding at her anastomosis, we will consider stopping the heparin drip and placing the patient on the schedule for an inferior vena cava filter. Again, this was all discussed extensively with the granddaughter. She voiced understanding and agreement with the said treatment. 3. Leukocytosis. At this time, her white blood cell count yesterday was 19. Her current white blood cell count is pending from this morning. She did have a low-grade fever to 100. At this time, we will monitor. If her leukocytosis persists, she may need more antibiotics. She did receive standard 24 hour postoperative antibiotic coverage with Mefoxin. 4. Low urine output. At this time, the patient does have a history of chronic kidney disease. We will recheck a BMP. Her urine itself does not look concentrated. Her volume status seems to be on the positive side. We will continue to monitor.
--- NOTE | 2016-07-10 07:32 | Extremity Venous Study ---
PROCEDURE NAME: Venous U/S Bilateral Legs - 07/09/2016 STUDY: Bilateral lower extremity venous images. REFERRING PHYSICIAN: Ravi Erickson MD INTERPRETING PHYSICIAN: Mike Enriquez MD CLEANING LABORER: Haley INDICATION: The patient has had a pulmonary embolus and is postop colon surgery. FINDINGS: Bilateral lower extremity venous images accomplished. The common femoral, superficial femoral, deep femoral, popliteal, posterior tibial, peroneal, and greater saphenous veins were imaged bilaterally. Doppler is used to evaluate the veins for spontaneity, phasicity, respiratory excursion, and distal augmentation. There is non-compressibility of the left distal superficial femoral, the left popliteal and posterior tibial veins. No flow is seen there. There is partial compressibility of the right popliteal vein. INTERPRETATION: Acute deep vein thrombosis of the left superficial femoral, popliteal and posterior tibial veins. There is probably chronic change in the right popliteal vein with recanalization of flow.
--- NOTE | 2016-07-10 07:47 | Diag Imaging Result Document ---
PROCEDURE NAME: CHEST-PORTABLE - 07/10/2016 AP PORTABLE CHEST 0520 HOURS: FINDINGS: There is an endotracheal tube with its tip 2 cm above the terrance and an NG tube with its tip below the diaphragm. There is increased atelectasis in both lung bases compared to 07/09/2016. The inspiration is less optimal. IMPRESSION: Worsened basilar atelectasis.
[2016-07-10 07:57] LABS: CALCIUM 7.2 mg/dL (8.8-10.2); POTASSIUM 4.8 mmol/L (3.5-5.1)
[2016-07-10] MEDS: SODIUM CHLORIDE 0.9% INJ SCH ×2 (08:18→20:21)
[2016-07-10] MEDS: PROTONIX IV SCH ×2 (08:18→20:21)
[2016-07-10] MEDS: HEPARIN 25,000 UNITS/D5W 250 ML IV SCH (08:19)
[2016-07-10] MEDS: LEVEMIR SUBQ SCH (08:20)
--- NOTE | 2016-07-10 09:01 | PROGRESS NOTE ---
DATE: 07/10/2016 SUBJECTIVE: Ms. Nava appears comfortable, feeling a little better. She is sedated on the ventilator. OBJECTIVE: Vital signs: Temp 100, pulse 58, respirations 12, blood pressure 107/50. Lungs: Clear anterolateral. Cardiovascular: Regular rhythm and rate without murmur or S3. Abdomen: Abdominal bandage dry. Urine output was over 500 mL. LAB: From yesterday reviewed, white count 19,790, hematocrit 32, platelet count 279,000. Chemistries from this morning: Sodium 131, potassium 4.8, chloride 102, bicarbonate 14, BUN 28, creatinine 1.8, blood sugars 178, 187, 164. Calcium 7.2. C-reactive protein 148. ASSESSMENT AND PLAN: 1. Postoperative right hemicolectomy, remains sedated and on ventilator. Will wean as able. Per Pulmonary, hemodynamically, she remains stable. Will follow electrolytes and urine output. 2. Pulmonary embolism. She did have acute or subacute left-sided PTE. We would like to hold off on aggressive anticoagulation and would like to hold off on an inferior vena cava filter. Dr. Abraham and Dr. Erickson are on the case, elected to continue her heparin drip without a bolus, and she showed signs of bleeding in the anastomosis. Continue stopping heparin drip. 3. Leukocytosis. Continue to follow. Did have a low-grade fever, and we may have to advance antibiotics. 4. Low urine output. Does have a history of chronic kidney disease. Will follow her electrolytes and urine output. REVIEW OF HER ORDERS: I do not see anything to change at this point. She is on Clinimix at 100 mL/h. She is on Diprivan for sedation. Iron 325 mg b.i.d.
[2016-07-10 09:05] LABS: HEMATOCRIT 26.3 % (37.0-47.0); HEMOGLOBIN 8.6 g/dL (12.0-16.0); MCH 26.3 PG (27-31); MCHC 32.7 g/dL (33-37); MCV 80.4 FL (81-99); MPV 9.7 FL (7.4-10.4); RBC 3.27 XMIL (4.2-5.4)
[2016-07-10] MEDS ORDERED: NS 250 ML ONE (09:21)
[2016-07-10] MEDS: PERICOLACE PO SCH ×2 (10:18→22:01)
[2016-07-10] MEDS: FERROUS SULFATE PO SCH ×2 (10:18→22:01)
[2016-07-10 10:47] LABS: HEPATITIS PROFILE ACUTE SEE COMMENTS (())
[2016-07-10 11:40] LABS: INR 1.4 (0.86-1.15); PROTIME 17.4 Seconds (12.1-15.5)
[2016-07-10] MEDS: SODIUM BICARBONATE 8.4% IV PUSH SCH ×3 (17:38→22:01)
[2016-07-10] MEDS: ALBUMIN 25% IV SCH (17:38)
[2016-07-10] MEDS: NS 1,000 ML IV SCH (17:39)
[2016-07-10] MEDS: MUCOMYST 20% PO SCH (17:40)
[2016-07-10] MEDS: LASIX IV SCH (18:27)
[2016-07-11] MEDS: SODIUM BICARBONATE 8.4% IV PUSH SCH (00:55)
[2016-07-11] MEDS: ALBUMIN 25% IV SCH (00:55)
[2016-07-11] MEDS: CLINIMIX E 4.25%-5% SOLUTION 1,000 ML IV SCH ×3 (02:12→20:05)
[2016-07-11] MEDS: LASIX IV SCH (02:35)
[2016-07-11] MEDS: DIPRIVAN 1% 100 ML IV SCH ×3 (03:16→10:18)
[2016-07-11 04:47] LABS: ALLEN TEST YES; BE 1.8 mmoll (-3.0-3.0); BLOOD TYPE ARTERIAL; DRAW SITE R RADIAL; METHB 1.3 % (0.0-1.5); O2(CT) 11.3 mL/dL (15.0-23.0); PCO2(98.6) 33 mmHg (35-45); PO2(98.6) 98 mmHg (60-100); SAMPLE BLOOD; SAO2 100.2 % (95.0-100.0); SRATE 8 BPM; THB 8.2 g/dL (11.5-17.4); TVOL 600 mL; pH(98.6) 7.49 (7.35-7.45)
[2016-07-11 04:50] LABS: MODALITY VENTILATOR
[2016-07-11 05:06] LABS: HEMATOCRIT 26.2 % (37.0-47.0); HEMOGLOBIN 8.2 g/dL (12.0-16.0); MCH 25.2 PG (27-31); MCHC 31.3 g/dL (33-37); MCV 80.6 FL (81-99); MPV 9.5 FL (7.4-10.4); RBC 3.25 XMIL (4.2-5.4)
[2016-07-11 05:34] LABS: AGAP 16; ALBUMIN 2.7 g/dL (3.5-5.0); ALKALINE PHOSPHATASE 54 U/L (32-104); BUN 38 mg/dL (8-22); CALCIUM 7.8 mg/dL (8.8-10.2); CHLORIDE 99 mmol/L (98-107); COSMO 284; GOT 8 U/L (10-30); GPT < 5 U/L (10-36); POTASSIUM 4.1 mmol/L (3.5-5.1); SODIUM 136 mmol/L (136-145); TCO2 21 mmol/L (25-35); TOTAL BILIRUBIN 0.56 mg/dL (0.20-1.00)
[2016-07-11] MEDS: HUMALOG SUBQ SCH ×4 (06:37→21:00)
--- NOTE | 2016-07-11 06:45 | PROGRESS NOTE ---
DATE: 07/11/2016 SUBJECTIVE: No major issues through the course of the night per the nurse. No signs of bleeding. Her hematocrit has been stable. She was given a couple doses of Lasix which has improved her urine output. Her blood pressure has gone down a little bit with the increase in Diprivan, but nurses currently state that her blood pressure seems to be responding to the weaning of the Diprivan. She is still on the ventilator and sedated. OBJECTIVE: Vital Signs: Patient is currently afebrile. Most recent pulse is in the 60s. Blood pressure 110 systolic and O2 saturation 98% on the ventilator. General: Sedated. Lungs: Some coarse sounds noted bilaterally and some referred airway noises. Cardiovascular: Regular rate and rhythm. Abdomen: Soft, nondistended. Incision is clean, dry, and intact. Hypoactive bowel sounds. Rectal: No bleeding noted per the nurse. Extremities: Swelling noted to all her extremities. LABORATORY: White blood cell count is 14.9, hematocrit is 26.2, platelet count 219,000. PTT is 72.5. ABG reviewed. CMP reviewed. Of note, patient's albumin is 2.7. Creatinine is 1.8. ASSESSMENT/PLAN: An 89-year-old, female, now postop day #2 from open right hemicolectomy. 1. Postoperative right hemicolectomy. At this time, patient remains sedated on the ventilator. We will defer to Pulmonary on managing the patient as far as extubation. Hemodynamically, she has been stable. Her urine output has improved with Lasix but her creatinine is 1.8. She does have baseline chronic kidney disease. We will continue to monitor. She , at this time, has no signs of bleeding. Her hematocrit has been stable. We will continue the heparin drip. Her albumin is low at 2.7 and she may require TPN but she is currently on Clinimix. 2. Pulmonary embolism. At this time, patient is on a heparin drip. Her hematocrit has remained stable. No external signs of bleeding. We will continue to monitor. 3. Leukocytosis. At this time, appears to be improving. Most recent one was 14. She has not had a fever. We will continue to monitor. Low urine output. At this time, patient's urine output is increased with Lasix, which she was given for pulmonary edema. She does have history of chronic kidney disease and we will monitor. Her creatinine has gone up to 1.8. 4. Protein malnutrition. At this time, patient is on Clinimix. Her albumin is 2.7. May need to consider TPN in the next couple of days. ELAINA
--- NOTE | 2016-07-11 07:48 | Diag Imaging Result Document ---
PROCEDURE NAME: CHEST-PORTABLE - 07/11/2016 AP PORTABLE CHEST: TIME: 0500 hours. FINDINGS: There is an endotracheal tube with its tip approximately 1 cm above the terrance. There is a left-sided PICC line with its tip probably wedged in the azygous vein. The tip of the catheter is somewhat curled. There is some atelectasis in both lung bases. This appearance has not changed significantly since 07/10/2016. IMPRESSION: Stable chest.
--- NOTE | 2016-07-11 08:14 | PROGRESS NOTE ---
DATE: 07/11/2016 SUBJECTIVE: Ms. Nava is sleeping and sedated, resting comfortably though. Appears to be resting comfortably. PHYSICAL EXAMINATION: Vital Signs: Afebrile. Temperature 99.8 degrees, pulse 67, respirations 20, blood pressure 165/52. Lungs: Are clear in all lung okeefe anterolateral. Cardiovascular Examination: Regular rhythm and rate without murmur or S3. Abdomen: Soft. Skin: Is warm and dry. Is and Os: Weight 164 pounds. Urine output was 4 L. Had an uneventful night. LABORATORIES: From this morning, white count 14,090, hematocrit 26, platelet count 219,000. Blood sugars have been 178, 132, 152, 150. Albumin 2.7. ASSESSMENT AND PLAN: 1. Postoperative, right hemicolectomy. Still on the ventilator. Continue to try and wean as able. Does have significant comorbidities with pulmonary emboli so we will continue to monitor closely. Hemodynamically, she remains stable. Good urine output. 2. Pulmonary embolism. At this time, she did have acute to subacute left-sided. Elected not to put in an inferior vena cava filter and Dr. Abraham is following as well. Continue her heparin drip. 3. Leukocytosis. White blood cell count seems to be coming down. 4. Urine output is good. She does have a history of chronic kidney disease. Review of her lab again, her creatinine is 1.8 and stable. Hematocrit is at 26, hemoglobin 8.2. Seems to be making some progress.
[2016-07-11] MEDS: FERROUS SULFATE PO SCH ×2 (09:18→20:37)
[2016-07-11] MEDS: PERICOLACE PO SCH ×2 (09:18→20:37)
[2016-07-11] MEDS: SODIUM CHLORIDE 0.9% INJ SCH (09:29)
[2016-07-11] MEDS: PROTONIX IV SCH ×2 (09:29→20:37)
[2016-07-11] MEDS: HEPARIN 25,000 UNITS/D5W 250 ML IV SCH (09:30)
[2016-07-11] MEDS: LEVEMIR SUBQ SCH (09:38)
[2016-07-11] MEDS: NS 1,000 ML IV SCH (12:01)
[2016-07-11] MEDS ORDERED: SODIUM BICARBONATE 8.4% IV PUSH ONE (13:17)
[2016-07-11 14:41] LABS: ALLEN TEST YES; BE 3.1 mmoll (-3.0-3.0); BLOOD TYPE ARTERIAL; DRAW SITE R RADIAL; O2(CT) 12.4 mL/dL (15.0-23.0); PCO2(98.6) 37 mmHg (35-45); PO2(98.6) 100 mmHg (60-100); SAMPLE BLOOD; SAO2 99.1 % (95.0-100.0); pH(98.6) 7.47 (7.35-7.45)
[2016-07-11 14:42] LABS: MODALITY VENTILATOR
[2016-07-11] MEDS: OFIRMEV 1000 MG/ISOTONIC SOLN 100 ML IV PRN ×2 (15:39→23:24)
[2016-07-12] MEDS: MORPHINE IV PRN ×2 (00:37→04:24)
[2016-07-12 05:09] LABS: ALLEN TEST YES; BE 5.9 mmoll (-3.0-3.0); BLOOD TYPE ARTERIAL; DRAW SITE R RADIAL; METHB 1.3 % (0.0-1.5); PCO2(98.6) 39 mmHg (35-45); PO2(98.6) 83 mmHg (60-100); SAMPLE BLOOD; SAO2 97.6 % (95.0-100.0); THB 8.9 g/dL (11.5-17.4); pH(98.6) 7.49 (7.35-7.45)
[2016-07-12 05:10] LABS: MODALITY COOL AEROSOL
[2016-07-12] MEDS ORDERED: NARCAN IV PRN (05:48)
[2016-07-12] MEDS ORDERED: ZOFRAN IV PRN (05:48)
[2016-07-12] MEDS: CLINIMIX E 4.25%-5% SOLUTION 1,000 ML IV SCH ×2 (06:11→16:58)
--- NOTE | 2016-07-12 06:22 | PROGRESS NOTE ---
DATE: 07/12/2016 SUBJECTIVE: Patient extubated yesterday afternoon. She tolerated being extubated through the course of the night. She does report some pain. The nurse reports no major issues. No bloody bowel movements. No bloody NG tube output. She has been hemodynamically stable through the night. Her blood pressure actually has gone up with pain but otherwise has been stable. OBJECTIVE: Vital Signs: Patient is currently afebrile with a T max of 99.3, pulse is regular at 79, respiratory rate elevated in the mid 20s but does not appear to be labored. Blood pressure 167/74. O2 saturation 97% on face mask. General: No acute distress. Lungs: Coarse sounds noted bilaterally. Cardiovascular: Regular rate and rhythm. Abdomen: Soft, nondistended, appropriately tender to palpation. Skin: Incision is clean, dry, and intact. Genitorectal: Rectal no bleeding noted per the nurse. Extremities: Swelling noted in all extremities. LABORATORY DATA: ABG reviewed. ASSESSMENT AND PLAN: An 89-year-old female, now postop day #3 from a open right hemicolectomy. 1. Postoperative right hemicolectomy. At this time, the patient remained stable off the ventilator. She has no signs of bleeding at this time. She is on a heparin drip. Her urine output has improved. She has not gotten any Lasix through the course of the night. Urine output has been essentially over 100 per hour. She is likely mobilizing fluid. At this time, we will start to trickle some Glucerna tube feeds down her NG tube. We will also get a speech eval given her age with her duration of intubation and recent anesthesia to make sure she has no defects from swallowing function. My partner will cover over the weekend while I am gone. 2. Pulmonary embolism. At this time, patient is on a heparin drip. Her hematocrit had remained stable. She has no external signs of bleeding. We will continue to monitor. 3. Leukocytosis. She has had no fever at this time. No CBC this morning. We will recheck labs in the morning. 4. Low urine output. At this time, patient's urine output has increased. She has not been given any diuretics over the course of the night. We will continue to monitor. She has labs pending. We will followup on her creatinine. 5. Protein malnutrition. At this time, the patient is on Clinimix. Her albumin was 2.7. We will start the patient on trickle tube feeds. If she can pass her swallow study, we will start giving the patient p.o. intake but otherwise we will ask nutrition to see for recommendations for tube feeds.
[2016-07-12 07:00] LABS: ALBUMIN 2.6 g/dL (3.5-5.0); CALCIUM 7.8 mg/dL (8.8-10.2); POTASSIUM 4.3 mmol/L (3.5-5.1); TOTAL BILIRUBIN 1.21 mg/dL (0.20-1.00); TOTAL PROTEIN 5.5 g/dL (6.3-8.3)
[2016-07-12] MEDS: HUMALOG SUBQ SCH ×4 (07:17→20:11)
--- NOTE | 2016-07-12 07:31 | Diag Imaging Result Document ---
PROCEDURE NAME: CHEST-PORTABLE - 07/12/2016 AP PORTABLE CHEST: TIME: 0510 hours. FINDINGS: There is atelectasis over the right base. There is opacification in the retrocardiac portion of the left lower lobe. The appearance of the chest has not changed significantly since 07/11/2016. IMPRESSION: Bibasilar atelectasis plus/minus pneumonia.
[2016-07-12] MEDS: MORPHINE PCA IV PRN (08:22)
[2016-07-12] MEDS: PERICOLACE PO SCH ×2 (09:15→20:16)
[2016-07-12] MEDS: FERROUS SULFATE PO SCH ×2 (09:15→20:16)
[2016-07-12] MEDS: PROTONIX IV SCH ×2 (09:15→20:16)
[2016-07-12] MEDS ORDERED: HEPARIN 25,000 UNITS/D5W 250 ML IV SCH ×2 (09:17→09:30)
[2016-07-12] MEDS: NS 1,000 ML IV SCH (09:19)
[2016-07-12] MEDS: LEVEMIR SUBQ SCH (09:23)
--- NOTE | 2016-07-12 09:34 | PROGRESS NOTE ---
DATE: 07/12/2016 SUBJECTIVE: She has been extubated. Appears comfortable. She did respond to questions. She is very weak and looks lethargic. OBJECTIVE: Vital Signs: Temperature 99.4, pulse 85, respirations 25, blood pressure 159/70. Lungs: Are clear in all lung okeefe. Cardiovascular: Regular rhythm and rate without murmur or S3. : Urine output was almost 3 L. LAB: White count 14,000, which has come down. Hematocrit 26, hemoglobin 8, platelet count 219,000. Chemistry: Sodium 137, potassium 4.3, chloride 98, bicarb 26, BUN 42, creatinine 1.6. Blood sugars have been 144, 156 and 147. Chest x-ray from today. Bibasilar atelectasis plus/minus pneumonia. ASSESSMENT AND PLAN: 1. Postoperative right hemicolectomy. The patient was extubated. Breathing and respiratory status is improved. 2. Pulmonary embolism. Is on a heparin drip. She is tolerating. Elected not to do inferior vena cava filter. Risks versus benefits ratio. 3. Leukocytosis, which is improving. General clinical course seems to be improving. 4. Urine output looks good. 5. Protein calorie malnutrition. Begin some nasogastric feeding. 6. Review of her orders. She is on Clinimix IV at 100 mL an hour. She is on heparin drip. She is getting iron tablet 325 mg b.i.d., Protonix 40 mg IV b.i.d. Blood sugars looked appropriate. I do not see any change at this point.
[2016-07-12] MEDS: SODIUM CHLORIDE 0.9% INJ SCH (20:16)
[2016-07-13] MEDS: CLINIMIX E 4.25%-5% SOLUTION 1,000 ML IV SCH ×3 (03:32→23:16)
[2016-07-13 04:22] LABS: BLOOD TYPE ARTERIAL; SAMPLE BLOOD
[2016-07-13 04:23] LABS: ALLEN TEST YES; BE 5.8 mmoll (-3.0-3.0); DRAW SITE R RADIAL; METHB 1.7 % (0.0-1.5); O2(CT) 12.6 mL/dL (15.0-23.0); PCO2(98.6) 48 mmHg (35-45); PO2(98.6) 77 mmHg (60-100); SAO2 96.6 % (95.0-100.0); THB 9.5 g/dL (11.5-17.4); pH(98.6) 7.42 (7.35-7.45)
[2016-07-13 04:24] LABS: MODALITY CANNULA
[2016-07-13] MEDS: NS 1,000 ML IV SCH (04:45)
[2016-07-13 05:15] LABS: BASO% 0.2 % (0.0-0.8); EOS# 0.77 X1000 (0.0-0.7); EOS% 6.4 % (0.0-10.0); HEMATOCRIT 29.1 % (37.0-47.0); HEMOGLOBIN 8.8 g/dL (12.0-16.0); IMM GRAN# 0.03 X1000 (0.0-0.04); IMM GRAN% 0.2 % (0.0-0.5); LYMPH# 1.62 X1000 (1.2-3.4); LYMPH% 13.4 % (20.5-51.1); MANUAL DIFF NEEDED? NO; MCH 24.9 PG (27-31); MCHC 30.2 g/dL (33-37); MCV 82.2 FL (81-99); MONO# 1.56 X1000 (0.11-0.59); MONO% 12.9 % (1.7-9.3); MPV 9.9 FL (7.4-10.4); NEUT% 66.9 % (42.2-75.2); PLT 284 X1000 (130-400); RBC 3.54 XMIL (4.2-5.4)
[2016-07-13 05:27] LABS: AGAP 12; ALBUMIN 2.5 g/dL (3.5-5.0); ALKALINE PHOSPHATASE 100 U/L (32-104); BUN 43 mg/dL (8-22); CALCIUM 8.2 mg/dL (8.8-10.2); CHLORIDE 96 mmol/L (98-107); COSMO 280; GOT 10 U/L (10-30); GPT < 5 U/L (10-36); POTASSIUM 5.2 mmol/L (3.5-5.1); SODIUM 133 mmol/L (136-145); TCO2 25 mmol/L (25-35); TOTAL BILIRUBIN 0.77 mg/dL (0.20-1.00)
[2016-07-13] MEDS: HUMALOG SUBQ SCH ×4 (06:04→20:31)
[2016-07-13] MEDS ORDERED: HEPARIN IV PRN (06:40)
[2016-07-13] MEDS ORDERED: HEPARIN 25,000 UNITS/D5W 250 ML IV SCH (06:45)
--- NOTE | 2016-07-13 07:49 | Diag Imaging Result Document ---
PROCEDURE NAME: CHEST-PORTABLE - 07/13/2016 PORTABLE CHEST: COMPARISON: 07/12/2016. FINDINGS: Nasogastric tube and PICC line remain in place. There has been slight improvement in basilar airspace disease. The upper lungs remain mostly clear. There is a possible tiny left pleural effusion. There is no pneumothorax seen. IMPRESSION: Slight improvement in basilar airspace disease.
[2016-07-13] MEDS ORDERED: INSULIN PEN NEEDLES ONE (08:44)
[2016-07-13] MEDS: PERICOLACE PO SCH ×2 (08:46→20:32)
[2016-07-13] MEDS: FERROUS SULFATE PO SCH ×2 (08:46→20:31)
[2016-07-13] MEDS: PROTONIX IV SCH ×2 (08:46→20:31)
[2016-07-13] MEDS: LEVEMIR SUBQ SCH (08:46)
[2016-07-13] MEDS: SODIUM CHLORIDE 0.9% INJ SCH ×2 (08:46→20:31)
[2016-07-13] MEDS: MORPHINE PCA IV PRN (09:59)
--- NOTE | 2016-07-13 12:51 | PROGRESS NOTE ---
DATE: 07/13/2016 Ms. Nava was sleeping, was easy to arouse. She says she feels better.Vital Signs: Temp 97.4 degrees, pulse 93, respirations 20, blood pressure 116/74. HEENT: Pupils were equal and round. Lungs: Clear in all lung okeefe anterior lateral. Cardiovascular: Regular rhythm and rate without murmur or S3. Abdomen: Soft. Skin: Is warm and dry. Weight 157 pounds. Urine output was 1600 mL. LAB: White count 68034, hematocrit 29, platelet count 287,000. Sodium 133, potassium 5.2, chloride 96, BUN 43, creatinine 1.4. She has come down from 1.6 the day before. Chest x-ray from today slight improvement. Bibasilar airspace and atelectasis appears improved. ASSESSMENT AND PLAN: 1. Postoperative right hemicolectomy. Patient extubated, doing better. Respiratory status improving. Radiographically the atelectasis seems to be improving. 2. Pulmonary embolism on heparin drip and seems to be improving clinically. 3. Leukocytosis improving. 4. Renal function and urine output improved. Creatinine has dropped. 5. Protein calorie malnutrition. Continue nasogastric feeding and Clinimix I believe. Review of orders: Patient does have a PICC line. On heparin drip. Getting iron 325 mg b.i.d., Protonix 40 mg IV b.i.d. I do not see any change at this point.
[2016-07-13] MEDS ORDERED: CATAPRES-TTS-2 TD ONE (15:49)
[2016-07-13] MEDS: MORPHINE IV PRN ×2 (16:17→20:31)
--- NOTE | 2016-07-13 16:54 | PROGRESS NOTE ---
DATE: 07/13/2016 Mrs. Helen Nava is an 89-year-old white female who on 07/09/2016 underwent an open right hemicolectomy with ileocolonic anastomosis per Dr. Erickson for colon cancer. She has been hospitalized in the ICU and is now postop day 4. We tried tube feeding which she has not tolerated. She is getting peripheral nutrition. Her heart rate is 93. Blood pressure 169/63. O2 saturation 97%. She is voiding with a Hernandez. She is on IV heparin because of deep venous thrombosis. Her hematocrit is 29, white blood cell count is 12. Her BUN and creatinine are 43 and 1.4. Her incision is dressed, seems to be intact. She appears weak and follows commands. She has a low-grade temperature of 99.6 degrees and is on no antibiotics. Supportive care continues.
[2016-07-13] MEDS: APRESOLINE IV PRN (20:33)
[2016-07-13] MEDS: OFIRMEV 1000 MG/ISOTONIC SOLN 100 ML IV PRN (21:00)
[2016-07-14] MEDS ORDERED: SODIUM CHLORIDE 0.9% INJ PRN (00:09)
[2016-07-14] MEDS ORDERED: PHENERGAN IV PRN (00:09)
[2016-07-14] MEDS: ZOFRAN IV PRN (00:32)
[2016-07-14] MEDS: MORPHINE IV PRN ×5 (01:34→23:28)
[2016-07-14] MEDS: NS 1,000 ML IV SCH ×2 (01:35→20:06)
[2016-07-14 05:37] LABS: CALCIUM 8.6 mg/dL (8.8-10.2); POTASSIUM 5.6 mmol/L (3.5-5.1); TOTAL BILIRUBIN 0.73 mg/dL (0.20-1.00); TOTAL PROTEIN 5.4 g/dL (6.3-8.3)
[2016-07-14 05:39] LABS: ALLEN TEST YES; BE 1.3 mmoll (-3.0-3.0); BLOOD TYPE ARTERIAL; DRAW SITE R RADIAL; MODALITY ROOM AIR; PCO2(98.6) 44 mmHg (35-45); PO2(98.6) 63 mmHg (60-100); SAMPLE BLOOD; SAO2 96.2 % (95.0-100.0); THB 11.6 g/dL (11.5-17.4); pH(98.6) 7.39 (7.35-7.45)
[2016-07-14] MEDS: HEPARIN 25,000 UNITS/D5W 250 ML IV SCH (06:17)
[2016-07-14] MEDS: HUMALOG SUBQ SCH ×4 (06:18→20:08)
--- NOTE | 2016-07-14 06:48 | Diag Imaging Result Document ---
PROCEDURE NAME: CHEST-PORTABLE - 07/14/2016 PORTABLE CHEST: COMPARISON: Compared to 07/13/2016. FINDINGS: Poor inspiratory effort. The nasogastric tube overlies the esophagus and stomach. No change in the left-sided PICC line. Heart remains mildly prominent. The right hemidiaphragm is elevated. Mild increased interstitial markings in the lower lungs. The overall appearance is similar to that of the prior exam. The apices remain clear. IMPRESSION: Stable chest.
[2016-07-14] MEDS: FERROUS SULFATE PO SCH ×2 (08:04→20:05)
[2016-07-14] MEDS: PERICOLACE PO SCH ×2 (08:04→20:05)
[2016-07-14] MEDS: PROTONIX IV SCH ×2 (08:08→20:09)
[2016-07-14] MEDS: CLINIMIX E 4.25%-5% SOLUTION 1,000 ML IV SCH ×2 (08:09→18:59)
[2016-07-14] MEDS: SODIUM CHLORIDE 0.9% INJ SCH ×2 (08:09→20:09)
[2016-07-14] MEDS: LEVEMIR SUBQ SCH ×2 (08:11→08:16)
--- NOTE | 2016-07-14 11:05 | PROGRESS NOTE ---
DATE: 07/14/2016 SUBJECTIVE: Ms. Nava is awake. NG-tube in place. She denies any pain. OBJECTIVE: Vital signs: She remains afebrile. Temperature 99.1 degrees, pulse 99, respirations 20, blood pressure 175/71. HEENT: Pupils are equal, round. Neck: CVP less than 6 cm. Lungs: Clear in all lung okeefe. Cardiovascular: Regular rhythm and rate without murmur or S3. Intake and output: Urine output 1800 mL. LAB: From yesterday reviewed. White count 12,050, hematocrit was 29, platelet count 284,000. Sodium 130, potassium 5.6, chloride 93, bicarb 24, BUN 57, creatinine 1.4, calcium 8.6. Liver functions unremarkable. Albumin 2.0. Chest x-ray: Stable chest this morning compared to 07/13/2016, poor inspiratory effort, nasogastric tube overlies the esophagus and stomach. No change in left-sided PICC line. ASSESSMENT AND PLAN: 1. Right hemicolectomy. He seems to have a little bit of ileus and a high amount of residual. Had to stop the NG feeding. Still getting a good amount of suction from the NG-tube so we put the NG-tube to low wall suction. This is postop day 5. Will continue the Clinimix. 2. Bilateral pulmonary thromboembolus. On IV heparin which he seems to be tolerating. Respiratory status seems to be good. 3. Leukocytosis, improving. 4. Renal function. Serum creatinine 1.4 and stable. Good urine output. 5. Diabetes mellitus type 2. Sugar is under good control. Note, on review of her labs I do not see any changes.
--- NOTE | 2016-07-14 11:54 | PROGRESS NOTE ---
DATE: 07/14/2016 Ms Nava is an 89-year-old white female, status post colon surgery per Dr. Nelson. She remains in the ICU weak. She has an NG tube. We have had to stop her tube feeding over the weekend and now the tube is to suction because of some nausea and vomiting but her abdomen remains soft and does not appear to be overly tender. Her midline incision seems to be healing well. Her heart rate is 99. Blood pressure 175/71. O2 saturation 99%. Her urine output is adequate with a Hernandez catheter tube in place. Her T max is 99 and she is on no IV antibiotics. She is on a heparin drip because of pulmonary emboli and deep venous thrombosis. She is getting peripheral nutrition. We will continue supportive care.
[2016-07-14] MEDS: APRESOLINE IV PRN ×2 (14:07→22:33)
[2016-07-14] MEDS ORDERED: VASELINE TOP PRN (20:53)
[2016-07-14] MEDS: OFIRMEV 1000 MG/ISOTONIC SOLN 100 ML IV PRN (23:28)
[2016-07-15] MEDS: HEPARIN 25,000 UNITS/D5W 250 ML IV SCH ×2 (02:29→22:36)
[2016-07-15] MEDS: ZOFRAN IV PRN (02:55)
[2016-07-15 04:23] LABS: ALLEN TEST YES; BE 3.5 mmoll (-3.0-3.0); BLOOD TYPE ARTERIAL; DRAW SITE R RADIAL; METHB 1.1 % (0.0-1.5); O2(CT) 11.2 mL/dL (15.0-23.0); PCO2(98.6) 40 mmHg (35-45); PO2(98.6) 75 mmHg (60-100); SAMPLE BLOOD; SAO2 98.1 % (95.0-100.0); THB 8.3 g/dL (11.5-17.4); pH(98.6) 7.45 (7.35-7.45)
[2016-07-15 04:24] LABS: MODALITY ROOM AIR
[2016-07-15] MEDS: CLINIMIX E 4.25%-5% SOLUTION 1,000 ML IV SCH (05:37)
[2016-07-15 05:42] LABS: ALBUMIN 2.2 g/dL (3.5-5.0); CALCIUM 8.5 mg/dL (8.8-10.2); POTASSIUM 5.4 mmol/L (3.5-5.1); TOTAL BILIRUBIN 0.61 mg/dL (0.20-1.00); TOTAL PROTEIN 5.5 g/dL (6.3-8.3)
[2016-07-15] MEDS: HUMALOG SUBQ SCH ×5 (06:00→22:35)
--- NOTE | 2016-07-15 06:29 | PROGRESS NOTE ---
DATE: 07/15/2016 SUBJECTIVE: First night per the nurse, she did have episodes of emesis. She did complain of pain, but a REGISTERED DENTAL ASSISTANT apparently sedated the patient too much. She has had no recorded bowel movements. She has hypoactive bowel sounds consistent with a postoperative ileus. They have kept her NG tube in place. There was an episode of emesis reported by the nursing staff. Patient reports that she is hungry. OBJECTIVE: Vital Signs: Patient is currently afebrile. Her vital signs have been stable. General exam: Awake and responsive. No acute distress. NG tube in place with gastric contents draining. Cardiovascular: Regular rate and rhythm. Lungs: Coarse sounds noted bilaterally. Abdomen: Soft, nondistended. Incision is clean, dry, intact. Hypoactive bowel sounds auscultated in all 4 quadrants. LABORATORY: ABG reviewed. CMP reviewed. Of note, patient's albumin is 2.2. ASSESSMENT/PLAN: An 89-year-old, female, status post open right hemicolectomy. 1. Postoperative right hemicolectomy. Patient's respiratory status is stable. She likely has a postoperative ileus given inability to tolerate p.o. Given that, will start the patient on TPN. She has had no external signs of bleeding. We will continue to monitor. 2. Pulmonary embolism. At this time, patient is on heparin drip. We will continue to monitor. 3. Protein malnutrition. At this time, patient had been on Clinimix. She was unable to tolerate tube feeds given her ileus. Therefore, we will start her on TPN.
[2016-07-15] MEDS: MORPHINE IV PRN ×3 (06:42→21:03)
[2016-07-15] MEDS: SODIUM CHLORIDE 0.9% INJ SCH ×2 (08:36→20:06)
[2016-07-15] MEDS: PROTONIX IV SCH ×2 (08:36→20:06)
[2016-07-15] MEDS: LEVEMIR SUBQ SCH (08:36)
--- NOTE | 2016-07-15 08:38 | PROGRESS NOTE ---
DATE: 07/15/2016 SUBJECTIVE: Ms. Nava is comfortable. She is very weak. Of course, she had high residual and had to stop her NG feeding. Put her NG tube to suction. Appears to be breathing comfortably. PHYSICAL EXAMINATION: Vital Signs: Temperature 98.6 degrees, pulse 98, respirations 20, blood pressure 163/74. CVP less than 6 cm. Lungs: Clear anterolateral. Cardiovascular Examination: Regular rhythm and rate without murmur or S3. Abdomen: Soft. Skin: Is warm and dry. Blood pressure remaining in the 160s-170s systolic and diastolic in the 70s. Is and Os: Urine output 1850 mL. LABORATORIES: CBC reviewed from the 4th. Chemistries from today, sodium 128, potassium 5.4, chloride 90, bicarb 23, BUN 63, creatinine 1.3. Blood sugar 185, 190, 196. ASSESSMENT AND PLAN: 1. Postoperative, right hemicolectomy. Patient's respiratory status is stable. Likely has postoperative illness given inability to take orals. Continue patient, started on total parenteral nutrition. 2. Pulmonary embolism. The patient is on a heparin drip. I believe we can switch to Lovenox treatment 1 mg/kg subcutaneously. 3. Protein malnutrition. The patient was started on total parenteral nutrition. Has a postoperative ileus and nasogastric tube. We will work on her strength and conditioning as able. 4. Review of orders. Note, bilateral pulmonary thromboembolism. We debated putting an inferior vena cava filter. Seems to have stabilized a little bit so I would like to try and change her to Lovenox subcutaneous. Review of her orders. I do not see any other change at this point.
[2016-07-15] MEDS: FERROUS SULFATE PO SCH ×2 (08:40→20:05)
[2016-07-15] MEDS: PERICOLACE PO SCH ×2 (08:40→21:03)
[2016-07-15] MEDS: APRESOLINE IV PRN (08:44)
--- NOTE | 2016-07-15 09:33 | Diag Imaging Result Document ---
PROCEDURE NAME: CHEST-PORTABLE - 07/15/2016 SINGLE FRONTAL RADIOGRAPH OF THE CHEST: COMPARISON: 07/14/2016. FINDINGS: Left PICC line is stable. NG tube is stable. Inspiration is still suboptimal but slightly better than the previous study. Mild increased interstitial markings at the lung bases and suggestion of right basilar atelectasis are stable to marginally improved. No new consolidation is identified. Cardiac silhouette is stable. IMPRESSION: Slightly better inspiration and perhaps marginal improvement of increased interstitial markings and atelectasis at the bases.
[2016-07-15] MEDS ORDERED: D10W 1,000 ML IV PRN (14:00)
[2016-07-15] MEDS: TPN ELECTROLYTES 20 ML, MAGNESIUM SULFATE 5 MEQ, POTASSIUM CHLORIDE 30 MEQ, SODIUM PHOS... IV SCH ×8 (14:19)
[2016-07-15] MEDS: LIPOSYN 20% 500 ML IV SCH (14:19)
[2016-07-15 15:30] LABS: CALCIUM 8.5 mg/dL (8.8-10.2); POTASSIUM 5.4 mmol/L (3.5-5.1); PREALBUMIN 7.7 mg/dL (20-40)
[2016-07-15] MEDS: NS 1,000 ML IV SCH (16:19)
[2016-07-15] MEDS ORDERED: HUMALOG SUBQ SCH (22:00)
[2016-07-15] MEDS: OFIRMEV 1000 MG/ISOTONIC SOLN 100 ML IV PRN (23:56)
[2016-07-16] MEDS: HUMALOG SUBQ SCH ×6 (00:11→19:58)
[2016-07-16] MEDS: MORPHINE IV PRN ×3 (03:29→20:49)
[2016-07-16 05:43] LABS: MAGNESIUM 1.9 mg/dL (1.5-2.7)
[2016-07-16 05:49] LABS: ALBUMIN 2.3 g/dL (3.5-5.0); CALCIUM 8.3 mg/dL (8.8-10.2); POTASSIUM 4.7 mmol/L (3.5-5.1); TOTAL BILIRUBIN 0.55 mg/dL (0.20-1.00); TOTAL PROTEIN 5.7 g/dL (6.3-8.3)
--- NOTE | 2016-07-16 06:12 | PROGRESS NOTE ---
DATE: 07/16/2016 SUBJECTIVE: Large bowel movement per the nursing staff overnight. No major other issues reported. Her NG tube has very minimal gastric contents draining. Patient is resting comfortably. OBJECTIVE: Vital Signs: Patient has been afebrile. Her vital signs have been stable. General: No acute distress. Resting comfortably. NG tube in place of gastric contents. Cardiovascular: Regular rate and rhythm. Lungs: Coarse sounds noted bilaterally. Abdomen: Soft, nondistended. Incision is clean, dry, intact. Bowel sounds still hypoactive. LABORATORY: Reviewed from yesterday. ASSESSMENT AND PLAN: An 89-year-old, female, status post open right hemicolectomy. 1. Postoperative right hemicolectomy. The patient's respiratory status is stable. She did have a large bowel movement and although she has still hypoactive bowel sounds will restart trickle tube feeds with Glucerna given her large bowel movement. The bowel movement was not reported as being bloody. 2. Pulmonary embolism. At this time, the patient is on heparin drip. Likely okay to start to transition to full strength Lovenox. 3. Protein malnutrition. At this time patient is on TPN. Will start trickle tube feeds, but will not remove TPN until we are at goal for tube feeds.
[2016-07-16] MEDS: OFIRMEV 1000 MG/ISOTONIC SOLN 100 ML IV PRN (07:29)
--- NOTE | 2016-07-16 07:36 | Diag Imaging Result Document ---
PROCEDURE NAME: CHEST-PORTABLE - 07/16/2016 SINGLE FRONTAL RADIOGRAPH OF THE CHEST: COMPARISON: 07/15/2016. FINDINGS: An NG tube projects below the diaphragm and out of the field of view. Left PICC line is stable. Inspiration remains suboptimal. Mild increased interstitial markings are approximately stable. Mild atelectasis at the right lung base may be marginally improved. No new consolidations are identified. Cardiac silhouette is stable. IMPRESSION: Perhaps marginal improvement of atelectasis at the right lung base. Otherwise, stable chest.
[2016-07-16] MEDS: SODIUM CHLORIDE 0.9% INJ SCH (08:21)
[2016-07-16] MEDS: PROTONIX IV SCH (08:21)
[2016-07-16] MEDS: PERICOLACE PO SCH (08:21)
[2016-07-16] MEDS: FERROUS SULFATE PO SCH (08:21)
[2016-07-16] MEDS: LEVEMIR SUBQ SCH (08:21)
[2016-07-16] MEDS ORDERED: LOVENOX 1 MG/KG SUBQ SCH (10:30)
--- NOTE | 2016-07-16 11:10 | PROGRESS NOTE ---
DATE: 07/16/2016 SUBJECTIVE: This morning, Ms. Nava referred to be doing a whole lot better. NG tube feeding was started early this morning by the surgical team and she seems to be tolerating. No vomiting. Per the nursing staff, she also had some bowel movement. OBJECTIVE: Vital Signs: Vital signs stable. Blood pressure is 156/83, pulse of 109, respirations are 22, temperature is 100.8. General Examination: Ms. Nava is an 89-year-old, female. She is in bed, not in any distress. HEENT: Mucosa is pink and moist. Anicteric and acyanotic. Neck: Supple. Chest: Good air entry bilateral. A few bibasilar crepitations and there are a few rhonchi bilateral. Cardiovascular: Regular rate and rhythm. I did not appreciate any murmurs. Abdomen: Soft, nontender. There is a fresh anterior midline abdominal wall surgical wound which is affronted with surgical clips. Bowel sounds are present. Extremities: No pedal edema. HOST/HOSTESS GROUND: Patient is alert and oriented. Laboratory Data: No CBC for today. CMP: Sodium is 127, potassium is 4.7, chloride 91, bicarb is 26. CURRENT MEDICATIONS: 1. Tylenol. 2. TPN. 3. Hydralazine p.r.n. 4. Levemir 38 units. 5. Insulin sliding scale. 6. Heparin drip. ASSESSMENT: 1. 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 Today is day 8 postoperatively. Patient seems to be doing relatively stable. 2. Pulmonary embolism which I think is probably due to the underlying malignancy. Patient was on a heparin drip. We switched this to twice a day subcutaneous Lovenox with the hope to transition this to oral once patient is able to tolerate feedings. 3. Protein calorie malnutrition. Patient is on tube feedings. She is tolerating it since this morning. Also on total parenteral nutrition. 4. Severe iron deficiency anemia. This is likely due to chronic gastrointestinal blood loss from the adenocarcinoma. 5. Diabetes mellitus. We will continue control with insulin. 6. Congestive heart failure with an ejection fraction of 35% on a recent echocardiogram. Also shows apical akinesis. Akinesis likely due to underlying coronary artery disease. GENERAL PLAN: The patient is stable for now. Once patient's enteral route is reestablished, we will be able to put her on aspirin with statin and very low-dose beta sandra.
[2016-07-16] MEDS: LOVENOX SUBQ SCH (11:55)
[2016-07-16] MEDS ORDERED: LOVENOX SUBQ SCH (12:00)
[2016-07-16] MEDS: TYLENOL PO PRN (12:35)
[2016-07-16] MEDS: LIPOSYN 20% 500 ML IV SCH (13:29)
[2016-07-16] MEDS: TPN ELECTROLYTES 20 ML, MAGNESIUM SULFATE 5 MEQ, POTASSIUM CHLORIDE 30 MEQ, SODIUM PHOS... IV SCH ×8 (14:25)
[2016-07-17] MEDS: HUMALOG SUBQ SCH ×7 (00:15→19:51)
[2016-07-17] MEDS: MORPHINE IV PRN (03:22)
[2016-07-17 05:49] LABS: MAGNESIUM 1.8 mg/dL (1.5-2.7)
[2016-07-17 06:03] LABS: ALBUMIN 2.4 g/dL (3.5-5.0); CALCIUM 7.9 mg/dL (8.8-10.2); POTASSIUM 4.8 mmol/L (3.5-5.1); TOTAL BILIRUBIN 0.8 mg/dL (0.20-1.00); TOTAL PROTEIN 5.9 g/dL (6.3-8.3)
--- NOTE | 2016-07-17 06:54 | PROGRESS NOTE ---
DATE: 07/17/2016 SUBJECTIVE: The patient had a bowel movement yesterday evening. She is tolerating her tube feeds with minimal residuals. Noted per the nursing staff. She did have some swelling in her left arm near her PICC line. She had an ultrasound which preliminary shows some superficial venous thrombosis but does not appear, by report to be involving the PICC line itself. Patient overall is resting comfortably. OBJECTIVE: Vital Signs: Patient's current temperature is 100.3 degrees, her T-max is 102.1, pulse is in the low 100s, respiratory rate in the mid 20s, blood pressure 142/80 and O2 saturation 96% on room air. General: Exam no acute distress. Resting comfortably. NG tube in place with tube feeds going. Cardiovascular: Regular rate and rhythm. Some mild tachycardia lungs coarse breath sounds noted bilaterally. Abdomen: Soft, nondistended. Incision is clean, dry, intact. LABORATORY: Currently pending. ASSESSMENT/PLAN: An 89-year-old, female, status post open right hemicolectomy. 1. Postoperative right hemicolectomy. At this time, respiratory status remains stable. She has mild tachycardia but her blood pressure remained stable. She has a low-grade fever which could come from multiple sources. We will continue to monitor. She has tolerated her tube feeds at this point. We will slowly advance to a goal of 50 mL an hour with free water as dictated by the dry wall sprayer's note. 2. Pulmonary embolism. At this time, the patient has been transitioned to Lovenox. 3. Protein malnutrition. At this time, we will continue total parenteral nutrition but will advance tube feeds. We will also have speech re-evaluation for swallow study. If the patient gets to the point where she is tolerating tube feeds at goal, we will stop total parenteral nutrition.
[2016-07-17] MEDS: LEVEMIR SUBQ SCH (08:04)
[2016-07-17] MEDS: SODIUM CHLORIDE 0.9% INJ SCH (08:04)
[2016-07-17] MEDS: TYLENOL PO PRN ×3 (08:04→23:23)
[2016-07-17] MEDS: PROTONIX IV SCH (08:04)
--- NOTE | 2016-07-17 08:39 | Diag Imaging Result Document ---
PROCEDURE NAME: CHEST-PORTABLE - 07/17/2016 SINGLE FRONTAL RADIOGRAPH OF THE CHEST: COMPARISON: 07/16/2016. FINDINGS: Left PICC line is stable. NG tube projects below the diaphragm and out of the field of view. There are stable mild increased interstitial markings bilaterally. No new consolidations are appreciated. Cardiac silhouette is stable. IMPRESSION: Essentially stable chest.
[2016-07-17] MEDS: LOVENOX SUBQ SCH (11:46)
[2016-07-17] MEDS ORDERED: LASIX IV ONE (11:48)
--- NOTE | 2016-07-17 12:35 | PROGRESS NOTE ---
DATE: 07/17/2016 This morning, Ms. Nava referred to be doing okay. I understand she had a swallow evaluation. There was a recommendation to start her on clear liquids. OBJECTIVE: Vital Signs: Stable. Blood pressure is 145/60, pulse of 93, respirations 24, temperature is 98.3 degrees. General Exam: Ms. Nava is an 89-year-old female. She was in bed. Does not seems to be in any distress. HEENT: Mucosa is pink and moist. Anicteric. Acyanotic. Neck: Supple. Chest: Air entry is bilaterally reduced. There is bilateral rhonchi. Cardiovascular: Regular rate and rhythm. No murmurs. Abdomen: Soft. Mildly tender around the surgical wound. Bowel sounds are present. Extremities: No pedal edema. COMMUNITY PLANNING TECHNICIAN: Patient is alert and oriented x4. No focal neurological deficit. There is an NG tube in place. The Hernandez catheter is also in place. LABORATORY DATA: Chemistry: Sodium is 127, potassium 4.8, chloride 89, bicarb is 27, creatinine is 1.3. ASSESSMENT: 1. GI bleed secondary to right-sided adenocarcinoma status post right hemicolectomy. Today is day 9 postop. Patient has been evaluated by dietary and we are going to start her on clear liquids. If she is able to tolerate that then we will advance her diet and eventually discontinue the NG tube feedings and the TPN. 2. Chest congestion. Patient sounds very congested. I think this is just a combination of fluid as well as probably just atelectasis from lying down. We are going to start the patient on incentive spirometer. I advised her to sit up in bed, and reduce the rate on the TPN. 3. Pulmonary embolism due to underlying malignancy. The patient was on a heparin drip until yesterday. Currently on once daily Lovenox. Will continue with this until patient is able to tolerate p.o. and will switch it to oral anticoagulation. 4. Protein calorie malnutrition. Patient is currently on TPN and tube feedings. We will start her on clear liquids and advance this as she tolerates. 5. Severe iron deficiency anemia secondary to underlying adenocarcinoma stable. 6. Diabetes mellitus. We will continue with insulin regimen. 7. Congestive heart failure with ejection fraction of 35% on recent echo and also apical akinesis likely due to underlying coronary artery disease. Will eventually address this when patient is relatively more stable. Our general plan, patient is stable, having some congestion in the lungs. We will reduce the TPN rate. Will also order incentive spirometer. A chest x-ray this morning continues to show interstitial infiltrates. We will give a dose of Lasix at 40 mg today. Review her labs and x-rays for tomorrow morning.
[2016-07-17] MEDS: LIPOSYN 20% 500 ML IV SCH (14:25)
[2016-07-17] MEDS: TPN ELECTROLYTES 20 ML, MAGNESIUM SULFATE 5 MEQ, POTASSIUM CHLORIDE 30 MEQ, SODIUM PHOS... IV SCH ×8 (14:51)
[2016-07-18 04:58] LABS: CALCIUM 8.2 mg/dL (8.8-10.2); POTASSIUM 4.8 mmol/L (3.5-5.1); TOTAL BILIRUBIN 0.67 mg/dL (0.20-1.00); TOTAL PROTEIN 5.7 g/dL (6.3-8.3)
--- NOTE | 2016-07-18 06:46 | Diag Imaging Result Document ---
PROCEDURE NAME: CHEST-PORTABLE - 07/18/2016 PORTABLE CHEST: COMPARISON: Compared to 07/17/2016. FINDINGS: No change in the left-sided PICC line or in the nasogastric tube. The heart remains mildly prominent. Mild central vascular distention. No pleural effusions identified. The right hemidiaphragm is elevated. No consolidation. The overall appearance is quite similar to that of the prior exam. IMPRESSION: Stable chest.
--- NOTE | 2016-07-18 06:50 | PROGRESS NOTE ---
DATE: 07/18/2016 SUBJECTIVE: Reviewed speech therapy notes and as documented in the chart, the patient does still have some dysphagia secondary to weakness. Per the recommendation, she can have honey thickened liquids for pleasure only. It does not appear from their evaluation that she will be able to tolerate or meet her nutritional needs at this time purely by oral intake. The patient was tolerating her tube feeds that had been on hold during this evaluation. Nurse reports no major issues. She has had multiple bowel movements through the course of the night. OBJECTIVE: Vital Signs: Patient is currently afebrile with a temperature 99.0. T-max in the last 24 hours reported at 101.3. Her vital signs have been stable through the course of the evening. General exam: No acute distress. Interactive, female, looks stated age. HEENT: NG tube in place. Cardiovascular: Regular rate and rhythm. Lungs: Coarse sounds noted. Abdomen: Soft, nondistended. Incision is healing. Bowel sounds auscultated. LABORATORY: CMP reviewed. Of note, patient's albumin is 2.0. ASSESSMENT AND PLAN: An 89-year-old, female, status post open right hemicolectomy. 1. Postoperative right hemicolectomy. At this time, patient's respiratory status remains stable. Continue to monitor. At this time, given the report from speech therapy, I do not suspect the patient can meet her caloric needs purely by p.o. intake until her weakness improves. Therefore, we restarted tube feeds. She reached a goal of 50 mL an hour with Glucerna. Will also institute the free water as prescribed by the dietitian. By the report from speech therapy, she is to be continued to be evaluated. If her strength improves, would agree with transitioning to p.o. intake for pure means of caloric intake. Once patient is at goal for tube feeds or p.o. intake, would recommend stopping total parenteral nutrition. 2. Pulmonary embolism. At this time, patient has been transitioned over to Lovenox. 3. Protein malnutrition. At this time please see above. Tube feeds being restarted and honey thickened liquids for pleasure only. She is to continue to work with speech therapy. 4. Deconditioning. At this time, we will have physical therapy continue working with the patient and try to increase strength.
[2016-07-18] MEDS: HUMALOG SUBQ SCH ×5 (08:23→20:10)
[2016-07-18] MEDS: LEVEMIR SUBQ SCH (08:24)
[2016-07-18] MEDS: PROTONIX IV SCH (08:25)
[2016-07-18] MEDS: SODIUM CHLORIDE 0.9% INJ SCH (08:25)
[2016-07-18] MEDS: APRESOLINE IV PRN ×2 (08:32→20:12)
[2016-07-18] MEDS: LOVENOX SUBQ SCH (08:32)
[2016-07-18] MEDS: TYLENOL PO PRN ×2 (08:32→20:06)
[2016-07-18] MEDS: MORPHINE IV PRN ×3 (10:39→18:38)
--- NOTE | 2016-07-18 11:15 | PROGRESS NOTE ---
DATE: 07/18/2016 SUBJECTIVE: Today, Ms. Nava referred to be doing okay. Actually, while waiting for the encounter, she had a bowel movement and she was just about to be changed. OBJECTIVE: Vital Signs: Stable. Blood pressure is 146/60, pulse of 77, respirations 26, temperature is 99 degrees. General: Ms. Nava is an 89-year-old female. She was in bed. She does not seem to be in unremarkable distress. HEENT: Mucosa is pink and moist. Anicteric. Acyanotic. Neck is supple. Chest: Good air entry bilaterally. Few bibasilar crepitations and some rhonchi. Cardiovascular: Regular rate and rhythm. No murmurs. No rubs. Abdomen is soft. Mildly tender around the surgical wound. Bowel sounds were present, and there was sterile dressing over by the surgical wound. Extremities: No pedal edema. HOUSEKEEPER HEAD: The patient is alert and oriented. There is no focal neurological deficit. There is NG tube in place and also a Hernandez catheter in place. LABORATORY DATA: WBC is 12.05, hemoglobin is 8.8, platelet count of 284,000. Chemistry: Sodium is 128, potassium is 4.8, chloride is 89, bicarb is 28. BUN is 64, creatinine is 1.4. A chest x-ray this morning shows mild central vascular distention. No pleural effusions. No consolidations. ASSESSMENT: 1. Gastrointestinal bleed secondary to right colon adenocarcinoma, status post right hemicolectomy with primary anastomosis. The patient is day 10 postop and seems to be doing remarkably fine. 2. Chest congestion. The patient was given Lasix yesterday. A subsequent chest x-ray this morning did not show any consolidation. 3. Pulmonary embolism. Will continue with therapeutic Lovenox. 4. Protein calorie malnutrition. Patient is currently on tube feedings, total parenteral nutrition and is getting some oral feedings as per diet recommendations. For now, we will continue with all these modalities of feedings until patient is up to go in terms of calories. 5. Severe iron deficiency anemia due to underlying adenocarcinoma. The patient is status post 4 PRBC transfusion which, I think, her iron reserve should be repleted by now with all those transfusions. 6. Diabetes mellitus, stable. 7. Congestive heart failure with ejection fraction of 35% on echo, also showing some apical akinesis likely due to underlying coronary artery disease. 8. Mild contraction alkalosis likely due to diuretic therapy. PLAN: The patient is progressively improving from her surgery. Her major problem now is just getting her to adequate caloric input. We will be working very closely with our surgery colleagues and dietitian. We are going to observe the patient in the ICU one more day. Hopefully, we might be able to reach the goal on the NG tube feedings and be able to transfer her to the floor, hopefully, tomorrow.
[2016-07-18] MEDS: TPN ELECTROLYTES 20 ML, MAGNESIUM SULFATE 5 MEQ, POTASSIUM CHLORIDE 30 MEQ, SODIUM PHOS... IV SCH ×8 (14:16)
[2016-07-18] MEDS: LIPOSYN 20% 500 ML IV SCH (14:17)
--- NOTE | 2016-07-18 14:21 | Extremity Venous Study ---
PROCEDURE NAME: Venous U/S Left Arm - 07/17/2016 This is a left upper extremity venous duplex and color flow imaging study using a GE Vivid E9 Ultrasound System with a 9L-D transducer. REFERRING PHYSICIAN: Dr. Galvan. PATIENT PROFILE: An 89-year-old female. CUPOLA TAPPER: Wendi De Leon RVT. INDICATIONS: Swelling of the limb, ICD-10: M79.89. The patient has had a PICC line in since 07/10/2016. FINDINGS: The left internal jugular vein was compressible and had flow through it. The left subclavian and axillary veins had flow through it without evidence of thrombus, it was compressible. The left brachial vein was compressible throughout its length. There was evidence of a small acute thrombosis involving the left cephalic vein in the left upper arm. The basilic vein was compressible throughout its length. The veins in the antecubital fossa were compressible and again there was a small segment of acute superficial venous thrombosis involving the cephalic vein in the forearm. INTERPRETATION: No evidence of deep venous thrombosis involving the left upper extremity but there was 2 separate areas of acute superficial thrombophlebitis involving the left cephalic vein, one in the proximal left arm and one in the cephalic vein in the forearm.
[2016-07-19] MEDS: HUMALOG SUBQ SCH ×6 (00:32→20:02)
[2016-07-19] MEDS: MORPHINE IV PRN ×5 (02:51→21:23)
--- NOTE | 2016-07-19 06:01 | PROGRESS NOTE ---
DATE: 07/19/2016 SUBJECTIVE: The patient with no major changes. She is requesting food although reviewing speech therapy and physical therapy's note she still is probably too weak to tolerate. She is tolerated her tube feeds with no significant residuals. She had multiple bowel movements yesterday three during the course of the day yesterday but no bowel movements overnight. Nursing staff reports no major issues. OBJECTIVE: Patient is currently with a temperature of 100.1 degrees. Pulse is anywhere in the 90s to low 100's. Respiratory rate in the 20s. Blood pressure 151/62. O2 saturation 96%. General: No acute distress. Interactive female looks stated age. Cardiovascular: Regular rate and rhythm. Lungs: Coarse sounds noted bilaterally. Abdomen: Soft, nondistended. Incision is healing. Bowel sounds auscultated. LABORATORY: Currently pending. ASSESSMENT AND PLAN: An 89-year-old female who is now postoperative day 11 from a open right hemicolectomy. 1. Postoperative right hemicolectomy. Patient remains relatively stable. She is tolerating tube feeds. Once she is stronger, we will likely transition her over to oral intake. I can likely consider start to decrease her TPN here in the next day or 2. 2. Pulmonary embolism. At this time, patient has been transitioned over to Lovenox. 3. Protein malnutrition. Tube feeds have been restarted. 4. Deconditioning. At this time, the patient still needs to continue speech therapy and physical therapy. I will be gone on over the course of the weekend and next week my partners will take care of the patient. She will likely need to have her jayne removed over the next 2-3 days from her incision site.
[2016-07-19 07:39] LABS: ALBUMIN 2.5 g/dL (3.5-5.0); CALCIUM 8.2 mg/dL (8.8-10.2); MAGNESIUM 2.1 mg/dL (1.5-2.7); POTASSIUM 4.9 mmol/L (3.5-5.1); TOTAL BILIRUBIN 0.64 mg/dL (0.20-1.00)
--- NOTE | 2016-07-19 07:56 | Diag Imaging Result Document ---
PROCEDURE NAME: CHEST-PORTABLE - 07/19/2016 SINGLE FRONTAL RADIOGRAPH OF THE CHEST: COMPARISON: 07/18/2016. FINDINGS: Left PICC line is stable. NG tube projects below the diaphragm and out of the field of view. Inspiration is suboptimal similar to the previous study. Prominent central vasculature is stable. No new consolidation is identified. Cardiac silhouette is stable. IMPRESSION: Stable chest.
[2016-07-19] MEDS: LEVEMIR SUBQ SCH (08:20)
[2016-07-19] MEDS: LOVENOX SUBQ SCH (08:20)
[2016-07-19] MEDS: SODIUM CHLORIDE 0.9% INJ SCH (08:20)
[2016-07-19] MEDS: PROTONIX IV SCH (08:20)
[2016-07-19] MEDS: APRESOLINE IV PRN ×2 (10:07→19:41)
[2016-07-19] MEDS: TPN ELECTROLYTES 20 ML, MAGNESIUM SULFATE 5 MEQ, POTASSIUM CHLORIDE 30 MEQ, SODIUM PHOS... IV SCH ×8 (14:38)
[2016-07-19] MEDS: LIPOSYN 20% 500 ML IV SCH (14:48)
--- NOTE | 2016-07-19 16:07 | PROGRESS NOTE ---
DATE: 07/19/2016 SUBJECTIVE: Today Ms. Nava referred to be doing a little better. She did not have any major complaints. OBJECTIVE: Vital signs: Blood pressure is 153/59, pulse of 108, respirations 20, temperature 98.9 degrees. General: Ms. Nava is an 89-year-old female. She was in bed. She did not seem to be in any distress. HEENT: Mucosa is pink and moist. Anicteric. Acyanotic. Neck: Supple. Chest: Good air entry bilateral. A few bibasilar crepitations. Cardiovascular: Regular rate and rhythm. Abdomen: Soft. There is a surgical wound which has a sterile dressing over it on the anterior abdominal wall. Bowel sounds were present. There is no pedal edema. WEB ART DIRECTOR: Patient is awake, alert and oriented. There is no focal neurological deficit. LABORATORY DATA: There is no CBC. Sodium is 131, potassium is 4.9, chloride is 91, bicarb is 29, BUN 65, creatinine is 1.4, glucose is 187. ASSESSMENT: 1. Status post right hemicolectomy with primary anastomosis due to right colon adenocarcinoma. 2. Mild chest congestion likely due to atelectasis. This has improved. 3. Pulmonary embolism. Patient is currently on therapeutic Lovenox. 4. Protein calorie malnutrition. We will continue with tube feedings and TPN. 5. Severe iron deficiency anemia on presentation, suspected to be due to underlying adenocarcinoma causing chronic GI blood loss. The patient had 4 PRBC transfusion. 6. Diabetes mellitus stable. 7. Congestive heart failure with ejection fraction of 35% on echo. 8. Diabetes mellitus. We will continue with insulin regimen. We will continue with the current nutrition needs, the insulin regimen and PT to help with early mobilization. [facility]
[2016-07-19] MEDS: TYLENOL PO PRN (19:40)
[2016-07-20] MEDS: HUMALOG SUBQ SCH ×4 (00:59→11:28)
[2016-07-20] MEDS: MORPHINE IV PRN ×6 (01:39→22:21)
[2016-07-20] MEDS: APRESOLINE IV PRN (04:08)
[2016-07-20 07:54] LABS: PREALBUMIN 10.1 mg/dL (20-40)
[2016-07-20 08:00] LABS: ALBUMIN 2.2 g/dL (3.5-5.0); CALCIUM 8.2 mg/dL (8.8-10.2); MAGNESIUM 2.3 mg/dL (1.5-2.7); POTASSIUM 5.5 mmol/L (3.5-5.1); TOTAL BILIRUBIN 0.62 mg/dL (0.20-1.00); TOTAL PROTEIN 6.1 g/dL (6.3-8.3)
[2016-07-20] MEDS ORDERED: INSULIN PEN NEEDLES ONE (08:51)
[2016-07-20] MEDS: LEVEMIR SUBQ SCH (08:54)
[2016-07-20] MEDS: TYLENOL PO PRN (08:56)
[2016-07-20] MEDS: PROTONIX IV SCH (08:56)
[2016-07-20] MEDS: SODIUM CHLORIDE 0.9% INJ SCH (08:56)
[2016-07-20] MEDS: LOVENOX SUBQ SCH (08:56)
[2016-07-20] MEDS: NS 1,000 ML IV SCH (08:59)
[2016-07-20] MEDS ORDERED: LEVEMIR SUBQ SCH (09:00)
[2016-07-20] MEDS ORDERED: HEPARIN ONE (09:02)
--- NOTE | 2016-07-20 09:37 | Diag Imaging Result Document ---
PROCEDURE NAME: CHEST-PORTABLE - 07/20/2016 PORTABLE CHEST X-RAY: COMPARISON: 07/19/2016. FINDINGS: Stable severely low lung volumes. Stable right hemidiaphragm elevation. The patient is somewhat rotated to the right. Stable PICC line and nasogastric tube in good position. Stable mild cardiomegaly and, perhaps, some pulmonary vascular congestion. No significant infiltrates. IMPRESSION: No change from prior.
--- NOTE | 2016-07-20 13:19 | PROGRESS NOTE ---
DATE: 07/20/2016 SUBJECTIVE: Today, Ms. Nava referred to be doing relatively fine. Per the nursing staff, she was a little agitated last night and had to be given some sedative. OBJECTIVE: Vital signs: Blood pressure is 141/91, pulse of 121, respirations 28, temperature 101.4. General: Ms Nava is an 89-year-old female. She was in bed, did not seem to be in any distress. Mucosa is pink and moist, anicteric and acyanotic. Neck: Supple. Chest: Air entry is bilaterally reduced. Cardiovascular: Regular rate and rhythm. There are no murmurs. Abdomen: Soft. Surgical wound on the anterior abdominal wall, has a sterile dressing over it. Extremities: No pedal edema. AUTOMATIC PROFILE SANDER OPERATOR: The patient is somewhat drowsy but is easily arousable, able to follow some basic commands. LABORATORY DATA: WBC is down to 12.05, hemoglobin is 8.8, platelet count of 284. Chemistry reviewed. Sodium is 129, potassium is 5.5, chloride is 90, bicarbonate is 29, BUN is 72, creatinine is 1.4, glucose is 343. ASSESSMENT: 1. Status post hemicolectomy with primary anastomosis due to right colon adenocarcinoma. 2. Pulmonary embolism. 3. Protein calorie malnutrition. TPN has been discontinued. The patient is on tube feedings at a rate of 50 mL/h. 4. Iron-deficiency anemia. 5. Diabetes mellitus. It is uncontrolled. We went up on the insulin. 6. History of congestive heart failure with an ejection fraction of 35%. We are going to be extremely careful with the hydration. 7. Delirium likely due to ICU stay. 8. Uncontrolled hypertension. Will start the patient on amlodipine. 9. Contraction alkalosis. We will start the patient on gentle hydration. PLAN: We are going to start the patient on gentle fluids. BUN is elevated, and bicarb is also slightly elevated consistent with possible contraction alkalosis. We will go with gentle hydration, keeping in mind her cardiac status. We are also going to discontinue the Hernandez catheter, encouraged the patient to sit up in bed. Will increase the Levemir to 45 units per day. We will use Haldol p.r.n. for agitation instead of Ativan. Will start the patient on amlodipine 5 mg b.i.d. for uncontrolled hypertension.
[2016-07-20] MEDS: NORVASC PO SCH ×2 (13:28→22:09)
[2016-07-20] MEDS ORDERED: D50W SYRINGE ONE (16:12)
[2016-07-20] MEDS: HUMULIN R SUBQ SCH ×2 (16:14→22:09)
[2016-07-20] MEDS ORDERED: TYLENOL PR ONE (16:39)
[2016-07-20] MEDS ORDERED: VANCOMYCIN IV PER PHARMACY MISC SCH (18:15)
[2016-07-20] MEDS: MAXIPIME 2 GM/NS 100 ML IV SCH (19:39)
--- NOTE | 2016-07-20 20:34 | Diag Imaging Result Document ---
PROCEDURE NAME: THORAX/ABDOMEN/PELVIS W/O CONT - 07/20/2016 CT CHEST: COMPARISON: 07/08/2016. FINDINGS: There are new small pleural effusions. There is some mild interstitial infiltrates centrally suggesting pulmonary edema. There is mild cardiomegaly. There is a left PICC line in good position. There is a nasogastric tube with the tip in the stomach. IMPRESSION: Cardiomegaly, interstitial pulmonary edema, trace pleural effusions. CT ABDOMEN AND PELVIS: COMPARISON: 07/08/2016. FINDINGS: There is a nasogastric tube with the tip in the distal stomach. There has been right hemicolectomy. There is some trace ascites. No free air. There is moderate constipation of the distal colon and rectum. There is extensive diverticulosis distally. A stable small unusual density at the gallbladder neck suggesting a stone. There is worsening flank edema. 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 No acute bony lesion. IMPRESSION: Constipation. Diverticulosis coli. Free fluid. No free air or abscess.
[2016-07-20] MEDS ORDERED: NICODERM PATCH TD SCH (21:00)
[2016-07-20] MEDS: DUONEB (A & A) INH PRN (21:24)
[2016-07-20] MEDS: ZYVOX 600 MG/D5W 300 ML IV SCH (22:09)
[2016-07-21] MEDS: TYLENOL PO PRN ×4 (00:17→23:18)
[2016-07-21] MEDS: MORPHINE IV PRN ×5 (03:16→21:03)
[2016-07-21] MEDS ORDERED: ATIVAN IV ONE (04:36)
[2016-07-21] MEDS: HUMULIN R SUBQ SCH ×4 (06:36→21:09)
[2016-07-21] MEDS: MAXIPIME 2 GM/NS 100 ML IV SCH ×2 (06:37→18:14)
[2016-07-21] MEDS: PRILOSEC ORAL SUSPENSION PO SCH (06:38)
[2016-07-21] MEDS: NS 1,000 ML IV SCH ×2 (06:38→15:19)
[2016-07-21 06:44] LABS: POTASSIUM 5.6 mmol/L (3.5-5.1)
[2016-07-21] MEDS: DUONEB (A & A) INH PRN ×3 (08:07→23:31)
[2016-07-21] MEDS ORDERED: LASIX IV SCH (09:00)
[2016-07-21] MEDS: ZYVOX 600 MG/D5W 300 ML IV SCH ×2 (09:27→21:03)
[2016-07-21 11:09] LABS: BASO% 0.4 % (0.0-0.8); EOS# 0.04 X1000 (0.0-0.7); EOS% 0.2 % (0.0-10.0); HEMATOCRIT 26.2 % (37.0-47.0); HEMOGLOBIN 7.9 g/dL (12.0-16.0); IMM GRAN# 0.24 X1000 (0.0-0.04); IMM GRAN% 1.5 % (0.0-0.5); LYMPH# 0.62 X1000 (1.2-3.4); LYMPH% 3.8 % (20.5-51.1); MANUAL DIFF NEEDED? YES; MCHC 30.2 g/dL (33-37); MCV 82.9 FL (81-99); MONO# 1.45 X1000 (0.11-0.59); MONO% 8.9 % (1.7-9.3); MPV 10.1 FL (7.4-10.4); NEUT% 85.2 % (42.2-75.2); PLT 661 X1000 (130-400); RBC 3.16 XMIL (4.2-5.4)
--- NOTE | 2016-07-21 11:11 | Diag Imaging Result Document ---
PROCEDURE NAME: CHEST-PORTABLE - 07/21/2016 PORTABLE CHEST X-RAY, 07/21/2016: COMPARISON: 07/20/2016. FINDINGS: Stable nasogastric tube with the tip in the left upper quadrant. Stable left PICC line in good position. Stable cardiomegaly. Stable diffuse bilateral interstitial infiltrates suggesting edema. There are probably trace effusions. IMPRESSION: No change from prior.
[2016-07-21 11:28] LABS: BANDS 8 % (0-1); LYMPHS 4 % (21-51); MONO 4 % (1-9)
[2016-07-21 12:29] LABS: URINE MICRO REVIEW NEEDED? NO; URINE SOURCE CLEAN CATCH
--- NOTE | 2016-07-21 12:29 | Diag Imaging Result Document ---
PROCEDURE NAME: CHEST-PORTABLE - 07/21/2016 PORTABLE CHEST X-RAY, 07/21/2016 AT 1200 HOURS: COMPARISON: 0500 hours. FINDINGS: There is a nasogastric tube with the tip in the stomach similar to prior. IMPRESSION: Nasogastric tube in the stomach.
[2016-07-21 12:42] LABS: BILIRUBIN URINE NEGATIVE (NEGATIVE); BLOOD URINE NEGATIVE (NEGATIVE); COLOR YELLOW; GLUCOSE URINE NEGATIVE (NEGATIVE); LEUKOCYTES URINE SMALL (NEGATIVE); NITRITE URINE NEGATIVE (NEGATIVE); PH URINE 7.5; PROTEIN URINE 30 mg/dL (NEGATIVE); SP GRAVITY URINE 1.014; TURBIDITY URINE CLEAR (CLEAR); UROBILINOGEN URINE NORMAL (NORMAL)
[2016-07-21 12:45] LABS: UR EPITHELIAL CELLS <10 /HPF (<10); URINE BACTERIA 4+ /HPF; URINE CULTURE NEEDED? YES; URINE RBC <10 /HPF (<10); URINE WBC TNTC /HPF (<10)
--- NOTE | 2016-07-21 13:51 | PROGRESS NOTE ---
DATE: 07/21/2016 SUBJECTIVE: Today, Ms. Nava continues to be altered. She has been shouting, "help me, help me, help me." Whenever you ask her where she is hurting, she just says abdomen. Yesterday, we did a CT scan of the abdomen which was unremarkable for any acute pathology. However , it did show some traces of ascites and extensive diverticulosis distally. No free air or abscesses. OBJECTIVE: Vital Signs: Her vitals this morning. Blood pressure is 131/48, pulse of 109, respiration is 13, temperature is 98.1 degrees. The patient had been running a temperature the whole of yesterday and even up to this morning. General: Ms. Nava is an 89- year-old female. She was in bed. Seems to be in some painful distress. HEENT: Mucosa is pink and moist. Anicteric. Acyanotic. Neck: Supple. Chest: Air entry is bilaterally reduced. There are a few bibasilar crepitations. Cardiovascular: Regular rate and rhythm. Abdomen: Soft. There is a midline surgical incision which is affronted with clips. The very distal of the wound is exuding some clear, yellowish peritoneal fluid. Central Nervous System: Patient is alert, is able to follow some basic commands, but seems to be dazed and confused. LABORATORY DATA: There is no CBC. Chemistry: Sodium is 135, potassium is 5.6 , chloride is 95, bicarbonate is 26, creatinine is 1.6. ASSESSMENT: 1. 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 2. Pulmonary embolism. Patient is currently on therapeutic Lovenox. 3. Protein calorie malnutrition. TPN was discontinued 3 days ago. NG tube was at 50 mL per hour. However, the patient accidentally removed her NG tube. Because of her ascites and a little bit of fluid overload, I am hesitant in restarting her on parenteral nutrition. I will put back her NG tube and begin her tube feedings with the lower rates. 4. Iron-deficiency anemia. 5. Diabetes mellitus. The patient was running a little bit of a hypoglycemia I think because the TPN was discontinued. She was getting too much insulin, and we had to discontinue that. 6. Delirium. Patient continues to be slightly confused. She was running a temperature. She was seeming septic yesterday. We will continue addressing that. We are going to use Zyprexa to control agitation and also for the delirium. I will be a little hesitant in using benzodiazepines on her since we know that it can easily precipitate worsening of her delirium in the elderly. 7. Sepsis. Unclear the source. The patient's CT scan of the chest, abdomen, and pelvis was unremarkable for any acute infectious disease. We ordered a urine in and out to see if it is coming from the gladder or the system since she had a Hernandez catheter in for some time. We already started her on antibiotics. Fever seems to have subsided, and her pulse has improved. 8. Hypertension. 9. Nutritional needs. Patient definitely needs some nutrition to help with wound healing. We will put the NG tube in and see if she will be able to tolerate the NG tube feeding. Because of her fluid overload (ascites) in the abdominal cavity and worsening abdominal wall fluid, I am hesitant in starting any TPN and IV nutrition. We will see if she will tolerate her NG tube feedings. ELAINA
[2016-07-21] MEDS: ZYPREXA IM PRN (23:18)
[2016-07-22] MEDS: NS 1,000 ML IV SCH (01:35)
[2016-07-22] MEDS: MAXIPIME 2 GM/NS 100 ML IV SCH ×3 (05:03→18:36)
[2016-07-22 06:33] LABS: BASO% 0.7 % (0.0-0.8); EOS# 0.16 X1000 (0.0-0.7); EOS% 1.2 % (0.0-10.0); HEMATOCRIT 24.2 % (37.0-47.0); HEMOGLOBIN 7.2 g/dL (12.0-16.0); IMM GRAN# 0.12 X1000 (0.0-0.04); IMM GRAN% 0.9 % (0.0-0.5); LYMPH# 1.77 X1000 (1.2-3.4); LYMPH% 13.5 % (20.5-51.1); MANUAL DIFF NEEDED? YES; MCH 24.6 PG (27-31); MCHC 29.8 g/dL (33-37); MCV 82.6 FL (81-99); MONO# 1.26 X1000 (0.11-0.59); MONO% 9.6 % (1.7-9.3); MPV 9.5 FL (7.4-10.4); NEUT% 74.1 % (42.2-75.2); PLT 615 X1000 (130-400); RBC 2.93 XMIL (4.2-5.4)
[2016-07-22 06:36] LABS: CALCIUM 7.5 mg/dL (8.8-10.2); MAGNESIUM 2.2 mg/dL (1.5-2.7); POTASSIUM 4.8 mmol/L (3.5-5.1)
[2016-07-22] MEDS: HUMULIN R SUBQ SCH ×3 (06:55→22:46)
[2016-07-22] MEDS: PRILOSEC ORAL SUSPENSION PO SCH (06:56)
[2016-07-22 07:29] LABS: BANDS 14 % (0-1); LYMPHS 4 % (21-51); MONO 4 % (1-9)
--- NOTE | 2016-07-22 08:08 | Diag Imaging Result Document ---
PROCEDURE NAME: CHEST-PORTABLE - 07/22/2016 AP PORTABLE CHEST AT 0600 HOURS: FINDINGS: There is an NG tube with its tip below the diaphragm. There is a PICC line on the left with its tip in the superior vena cava. There is mild atelectasis in the lung bases including the right middle lobe. The overall appearance of the chest has not changed significantly since 07/21/2016. IMPRESSION: Stable chest.
[2016-07-22] MEDS ORDERED: NS 500 ML IV ONE (08:13)
[2016-07-22] MEDS ORDERED: NS 500 ML ONE (09:57)
[2016-07-22] MEDS: MORPHINE IV PRN ×4 (10:02→22:47)
--- NOTE | 2016-07-22 10:07 | Diag Imaging Result Document ---
PROCEDURE NAME: HIDA SCAN W/O EJECT. FRACTION - 07/22/2016 HEPATOBILIARY SCAN: FINDINGS: It is not entirely clear if there is any activity in the gallbladder. What may be the gallbladder to the right of the distal common bile duct may in fact be the duodenal bulb. There is fairly intense activity on the last images up to 75 minutes in the duodenum. Given the size and extent of the gallbladder on the CT scan of 07/20/2014 what is seen on the hepatobiliary scan is much smaller. IMPRESSION: The possibility of acute cholecystitis cannot be entirely excluded on the basis of this study. No evidence of biliary obstruction is present.
[2016-07-22] MEDS: ZYVOX 600 MG/D5W 300 ML IV SCH (10:15)
--- NOTE | 2016-07-22 11:54 | PROGRESS NOTE ---
DATE: 07/22/2016 SUBJECTIVE: Today, Ms. Nava is constantly groaning. She said she was hurting. HIDA scan was ordered for today and she just came from that. OBJECTIVE: Vital signs: Blood pressure is 159/80, pulse of 116, respirations 23, temperature 99.3degrees. General: Ms. Nava is an 89-year-old female. She is in bed. She is just constantly yelling. Mucosa is slightly dry. Anicteric. Acyanotic. Neck: Supple. Chest: Air entry is bilaterally reduced. Cardiovascular: Regular rate and rhythm. Abdomen: Soft, mildly tender all over. There is a freshly affronted surgical scar in the mid anterior wall. The distal aspect of it is exuding some serous material. Central Nervous System: Patient is alert, oriented, follows some basic commands. LABORATORY DATA: WBC 13.30, hemoglobin is 7.2, platelet count of 615,000. There is 14% of bands. Sodium is 134, potassium 4.8, chloride is 100, bicarbonate is 26, creatinine is 1.7. ASSESSMENT: 1. Status post hemicolectomy with primary anastomosis due to right colon adenocarcinoma. 2. Pulmonary embolism. Patient is currently on therapeutic Lovenox. 3. Sepsis unclear of the source. HIDA scan could not rule out the possibility of acute cholecystitis. Patient has urinary tract infection and also infection of the surgical wound. She is currently on antibiotics. 4. Gram-negative giorgi wound infection. We are still pending on the ID and sensitivity on this. 5. Gram positive cocci urinary tract infection. Patient did have a Hernandez catheter in for about 10 days. It was removed about 3 days ago and culture was done which showed gram-positive cocci. This morning, she was retaining her urine. Bladder scan showed more than 900. The nurse did in and out catheterization and there was 1000 mL of urine drained. We will going to put back the Hernandez catheter. Continue the current antibiotics. 6. Nutritional needs. The patient used to be on tube feeding and TPN. We had discontinued the TPN and patient was only on tube feeding. However because of the suspicion of possible acute cholecystitis and foreseeing that the patient might go for surgery, we are going to start her on Clinimix with lipid infusion and keep her NPO for surgery to evaluate her. 7. Delirium. I think this is multifactorial including infection (urinary tract infection, wound infection and also prolonged hospital stay). We will try and avoid the use of benzodiazepines. We will continue using Zyprexa if she needs. 8. Severe iron deficiency anemia. Patient has had 4 units of PRBC transfused over the course of the hospital stay. Hemoglobin and hematocrit was kind of holding, but we realize she has been trending down today to 7.2. Because she is a congestive heart failure patient with possible coronary artery disease we are going to give a unit of blood to keep the hemoglobin and hematocrit above 8. So in general, we are going to put back the Hernandez catheter. We will continue with the current antibiotics. We will restart the patient on Clinimix with lipid infusion and we are waiting for surgery to evaluate the patient with regards to with abnormal HIDA scan test.
[2016-07-22] MEDS: CLINIMIX E 4.25%-5% SOLUTION 1,000 ML IV SCH (15:12)
[2016-07-22] MEDS: LIPOSYN 20% 250 ML IV SCH (16:17)
[2016-07-22] MEDS: DUONEB (A & A) INH PRN (19:10)
[2016-07-22] MEDS: MYCAMINE 100 MG in NS 100 ML IV SCH (22:47)
[2016-07-23] MEDS: CLINIMIX E 4.25%-5% SOLUTION 1,000 ML IV SCH ×2 (00:33→13:39)
[2016-07-23] MEDS: MORPHINE IV PRN ×2 (02:56→07:57)
[2016-07-23] MEDS: ZYVOX 600 MG/D5W 300 ML IV SCH (02:57)
[2016-07-23] MEDS: HUMULIN R SUBQ SCH ×4 (03:05→20:17)
[2016-07-23] MEDS: MAXIPIME 2 GM/NS 100 ML IV SCH ×3 (05:27→18:45)
[2016-07-23] MEDS: PRILOSEC ORAL SUSPENSION PO SCH ×2 (05:32→06:05)
[2016-07-23 06:53] LABS: CALCIUM 8.2 mg/dL (8.8-10.2); MAGNESIUM 2.3 mg/dL (1.5-2.7); POTASSIUM 4.5 mmol/L (3.5-5.1)
--- NOTE | 2016-07-23 07:39 | Diag Imaging Result Document ---
PROCEDURE NAME: CHEST-PORTABLE - 07/23/2016 PORTABLE CHEST X-RAY: COMPARISON: 07/22/2016. FINDINGS: Stable support lines and tubes. Stable cardiomegaly and pulmonary vascular congestion. There is slight worsening and some minimal, patchy atelectasis in the lateral right lung base. There is some improvement on the left side. IMPRESSION: Mixed changes with, overall, no change from prior.
[2016-07-23] MEDS: DUONEB (A & A) INH PRN ×4 (08:27→22:25)
--- NOTE | 2016-07-23 10:10 | PROGRESS NOTE ---
DATE: 07/23/2016 SUBJECTIVE: Ms. Nava is sitting up in the bed groaning. OBJECTIVE: Vital signs: Temperature is 98.3 degrees, heart rate 98, respirations 20, blood pressure 150/83. O2 is 89% on 4 L nasal cannula. General: Ms Nava is an 89-year-old, female, sitting up in the bed getting NG tube feedings, groaning. HEENT: Mucosa is dry. Atraumatic, normocephalic. Neck Supple. No JVD noted. CV: Regular rate and rhythm. S1-S2 appreciated. No murmurs, gallops, or rubs noted. Respiratory: Lung sounds are clear but decreased bilaterally. Abdomen is soft. It does appear tender all over. Neuro: The patient is sitting up in bed. She is alert. She moans. She follows some basic commands. LABORATORY DATA: No CBC for today. BMP: Sodium is 135, potassium 4.5. BUN 61, creatinine 1.5. Blood glucose is 203. DIAGNOSTIC DATA: Chest x-ray shows mixed changes but overall no change from prior. Stable support lines and tubes. Stable cardiomegaly. Pulmonary vascular congestion. There is slight worsening of some minimal patchy atelectasis in the lateral right lung base, somewhat improvement on the left side. ASSESSMENT: 1. Status post hemicolectomy with primary anastomosis due to the right colon adenocarcinoma. 2. Pulmonary embolism. Patient on therapeutic Lovenox. 3. Sepsis of unclear etiology. HIDA scan could not rule out possibility of acute cholecystitis. Patient also has a urinary tract infection and infection of the surgical wound on IV antibiotics. 4. Gram-negative giorgi wound infection. It is growing Pseudomonas aeruginosa. I will look over and make sure she is on the correct antibiotics. 5. Enterococcus facialis Group D urinary tract infection. Will check antibiotics. 6. Nutritional needs. The patient is getting NG tube feedings. 7. Delirium. Multifactorial, including infections and urinary wound as well as prolonged hospital stay. We are going to try to take her off her pain medicines. She has already been taken off her benzodiazepine to see if this helps with any mentation improvement. 8. Severe iron deficiency anemia. Patient is status post 4 units of PRBCs over the course of the hospital stay. We will recheck an hemoglobin and hematocrit in the a.m. DISPOSITION: The patient is awaiting a re-evaluation on surgery due to the HIDA scan abnormal results. Further recommendations to follow physician evaluation. Dictated by DIANNE Hadley for Juan Spivey MD
[2016-07-23] MEDS: TYLENOL PO PRN ×2 (12:42→19:00)
[2016-07-23] MEDS ORDERED: VANCOMYCIN IV PER PHARMACY MISC SCH (12:45)
[2016-07-23] MEDS: LIPOSYN 20% 250 ML IV SCH (14:20)
[2016-07-23] MEDS ORDERED: VANCOMYCIN 1,600 MG in NS 250 ML IV ONE (15:00)
[2016-07-23] MEDS ORDERED: STERILE WATER INJ. INJ SCH (20:00)
[2016-07-23] MEDS: MYCAMINE 100 MG in NS 100 ML IV SCH (20:15)
[2016-07-23] MEDS: ZYPREXA IM PRN (20:15)
[2016-07-24] MEDS: TYLENOL PO PRN (01:20)
[2016-07-24] MEDS: HUMULIN R SUBQ SCH ×4 (01:21→20:42)
[2016-07-24] MEDS: ZYPREXA IM PRN (02:41)
[2016-07-24] MEDS: CLINIMIX E 4.25%-5% SOLUTION 1,000 ML IV SCH ×2 (02:44→16:11)
[2016-07-24 04:03] LABS: ALLEN TEST YES; BE -0.7 mmoll (-3.0-3.0); BLOOD TYPE ARTERIAL; DRAW SITE L RADIAL; METHB 1.4 % (0.0-1.5); O2(CT) 13.8 mL/dL (15.0-23.0); PCO2(98.6) 40 mmHg (35-45); PO2(98.6) 92 mmHg (60-100); SAMPLE BLOOD; THB 10.2 g/dL (11.5-17.4); pH(98.6) 7.39 (7.35-7.45)
[2016-07-24 04:05] LABS: MODALITY NRB
[2016-07-24] MEDS ORDERED: EPINEPHRINE SYRINGE ONE (04:28)
[2016-07-24] MEDS ORDERED: ATROPINE SYRINGE ONE (04:28)
[2016-07-24] MEDS ORDERED: NS ONE (04:28)
[2016-07-24 04:30] LABS: BASO% 0.8 % (0.0-0.8); EOS# 0.72 X1000 (0.0-0.7); EOS% 2.8 % (0.0-10.0); HEMATOCRIT 32.1 % (37.0-47.0); HEMOGLOBIN 9.7 g/dL (12.0-16.0); IMM GRAN# 1.01 X1000 (0.0-0.04); IMM GRAN% 3.9 % (0.0-0.5); LYMPH# 8.41 X1000 (1.2-3.4); LYMPH% 32.4 % (20.5-51.1); MANUAL DIFF NEEDED? NO; MCH 25.4 PG (27-31); MCHC 30.2 g/dL (33-37); MONO# 2.78 X1000 (0.11-0.59); MONO% 10.7 % (1.7-9.3); MPV 9.6 FL (7.4-10.4); NEUT% 49.4 % (42.2-75.2); PLT 696 X1000 (130-400); RBC 3.82 XMIL (4.2-5.4)
[2016-07-24] MEDS ORDERED: CATHFLO IV ONE (04:45)
[2016-07-24] MEDS ORDERED: LEVOPHED 8 MG in D5 1/2 NS 250 ML IV SCH (04:45)
[2016-07-24 04:48] LABS: ALBUMIN 2.4 g/dL (3.5-5.0); CALCIUM 8.7 mg/dL (8.8-10.2); MAGNESIUM 2.6 mg/dL (1.5-2.7); POTASSIUM 4.4 mmol/L (3.5-5.1); TOTAL BILIRUBIN 0.84 mg/dL (0.20-1.00); TOTAL PROTEIN 6.7 g/dL (6.3-8.3)
[2016-07-24] MEDS ORDERED: DIPRIVAN 1% 100 ML IV SCH (05:01)
[2016-07-24 05:52] LABS: INR 1.2; PROTIME 12.7 Seconds (9.2-11.7); PTT 30.1 Seconds (22.0-36.0)
[2016-07-24 05:56] LABS: ALLEN TEST YES; BLOOD TYPE ARTERIAL; DRAW SITE R RADIAL; METHB 1.5 % (0.0-1.5); PCO2(98.6) 34 mmHg (35-45); PO2(98.6) 127 mmHg (60-100); SAMPLE BLOOD; SAO2 98.8 % (95.0-100.0); SRATE 12 BPM; THB 9.4 g/dL (11.5-17.4); TVOL 500 mL; pH(98.6) 7.42 (7.35-7.45)
[2016-07-24 05:58] LABS: MODALITY VENTILATOR
[2016-07-24] MEDS: PRILOSEC ORAL SUSPENSION PO SCH (06:27)
--- NOTE | 2016-07-24 07:11 | EKG Report ---
Test Performed on : 07/24/2016 03:47:41 AM Test Reason : Code Blue Blood Pressure : / mmHG Vent. Rate : 141 BPM Atrial Rate : 133 BPM P-R Int : 176 ms QRS Dur : 074 ms QT Int : 308 ms P-R-T Axes : 048 012 058 degrees QTc Int : 471 ms Undetermined rhythm , suspect sinus rhythm with burst of atrial fibrillation Low voltage QRS Cannot rule out Anteroseptal infarct , age undetermined Abnormal ECG When compared with ECG of 30-NOV-2009 06:35, Possible burst of atrial fibrillation are new. Minimal criteria for Anteroseptal infarct are now present Confirmed by Wilmer Llanos MD ([id number]) on 07/25/2016 10:09:22 PM
--- NOTE | 2016-07-24 07:42 | Diag Imaging Result Document ---
PROCEDURE NAME: CHEST-PORTABLE - 07/24/2016 SINGLE FRONTAL RADIOGRAPH OF THE CHEST: COMPARISON: 07/24/2016. FINDINGS: Left PICC line and ET tube are approximately stable. NG tube is stable. Inspiration is suboptimal. There is worsening infiltrate in the right perihilar region and, to a lesser degree, the left. Cardiac silhouette is approximately stable. IMPRESSION: Worsening perihilar infiltrates, especially on the right.
[2016-07-24] MEDS: DUONEB (A & A) INH PRN ×5 (07:54→23:20)
--- NOTE | 2016-07-24 07:54 | Diag Imaging Result Document ---
PROCEDURE NAME: CHEST-PORTABLE - 07/24/2016 SINGLE FRONTAL RADIOGRAPH OF THE CHEST: COMPARISON: 07/23/2016. FINDINGS: There is a newly placed ET tube. The tip projects over the trachea and above the terrance at about the C5 level. Left PICC line is in stable position. An NG tube projects below the diaphragm and is assumed to be in the stomach. There are a couple of electrode pads on the left that have been placed. There is interval slight increase in opacity in the right perihilar region and right lung apex as compared to the previous study. No other new consolidation is identified. Cardiac silhouette is stable. IMPRESSION: 1. Interval placement of ET tube as described. 2. Slight worsening of infiltrate in the right perihilar region and right lung apex. [facility]
[2016-07-24] MEDS: DIPRIVAN 1% 100 ML IV SCH ×3 (08:16→23:10)
--- NOTE | 2016-07-24 08:37 | PROGRESS NOTE ---
DATE: 07/24/2016 CRITICAL CARE NOTE Ms. Nava is an 89-year-old female who was admitted on 07/06/2016. During her hospital course, she had been being treated for a right colon adenocarcinoma for which she underwent a hemicolectomy with primary anastomosis on 07/08/2016. Since then, the patient has also been being treated for pulmonary embolism, currently on therapeutic Lovenox. She also has been being treated for sepsis of unclear etiology. A recent HIDA scan could not rule out any possibility of acute cholecystitis, though she is also being treated for a urinary tract infection and an infection of her abdominal surgical wound. At approximately 0335 on 07/24/2016, the patient's nurses reported that she began becoming very restless, was agitated, flailing all over the bed, and was sitting up as though she could not breathe. Respiratory was called, and the patient did appear to have some upper airway congestion. Deep suctioning was performed. During this time, it was reported the patient became bradycardic then unresponsive and was found to have lost her pulse. CPR was started. A half amp of epinephrine was given. CPR was administered for approximately one minute before the patient regained a pulse. The patient initially was still very lethargic though began becoming more responsive back to her baseline prior to the code. She was placed on a nonrebreather and had an oxygen saturation of 98%. Heart rate was 131, blood pressure 170/75. Myself, Lynn Serna, nurse practitioner for the hospitalist group, as well as the ER physician were at bedside for the initial called Code Blu. Stat labs were ordered as well as ABGs, EKG, and chest x-ray. EKG performed at 0347 showed an undetermined tachycardic rhythm at a rate of 141. The patient at this time was awake and moaning. The patient's nurse reports that this was her baseline. At 0400, the patient again began becoming agitated, restless. She was sitting up in the bed as though she was trying to cough. Her oxygen saturation did decrease to 85%. Heart rate was 125. Due to the patient's declining respiratory status, we did begin to go ahead and assist her with a bag valve mask, though she continued to worsen. Her heart rate became bradycardic into the 60s and then into the high 30s. A half amp of atropine, 0.5 mg. was given IV push, though the patient's heart rate did not improve. She did then lose pulse, showing PA on the monitor. Another Code Blue was called. CPR was started. A total of 2 amps of epi were given during this time. Respiratory was at bedside as well as Dr. Solorio, the hospitalist physician. Upon preparing the patient for intubation, a large mucous plug was retrieved. After the mucous plug was removed, the patient did regain pulse. At 0414, the patient was intubated by Dr. Carey, ER physician. A 7-1/2 ET tube was placed and secured 23 at the right lip. There was positive color change as well as positive auscultation of lung sounds bilaterally. The patient's heart rate at this time is 120, respirations 18-20 provided per Ambu bag by Respiratory, blood pressure 98/58, oxygen saturation is 100%. There are positive palpable pulses. At this time, the patient is being prepared to be moved to ICU. Dr. Carey, ER physician, did review the patient's portable chest x-ray to confirm placement of the ET tube. Per his instructions, ET tube will be pulled back approximately 2 cm. Also, there is possible evidence suggesting aspiration pneumonia in the right upper lobe on x-ray. We will make sure the patient is covered for this with appropriate antibiotics, and we will await the results of her stat laboratory studies. Given the patient's symptoms just prior to both codes with her having difficulty breathing, becoming hypoxic and bradycardic, we do feel it is possible that her decline in her condition was caused by mucous plug. We will need to continue to monitor her condition closely. The patient is critical at this time. We have placed orders for propofol drip for sedation as well as Levophed drip for blood pressure support, if needed, and will continue following her closely. Dictated by DIANNE Brown for Otf Solorio MD
[2016-07-24] MEDS: MAXIPIME 2 GM/NS 100 ML IV SCH ×2 (09:38→20:43)
[2016-07-24] MEDS: LIPOSYN 20% 250 ML IV SCH (12:03)
--- NOTE | 2016-07-24 12:48 | PROGRESS NOTE ---
DATE: 07/24/2016 SUBJECTIVE: She had respiratory and was coded and found to have a large mucous plug and had to be intubated and her blood pressure dropped concerning for possible aspiration. To review, she was admitted on 07/06/2016 with altered mental status. An 89-year-old female with a history of diabetes, chronic kidney disease, and hypertension all of which were currently untreated. The patient was living alone and occasionally being checked on by her granddaughter. Her granddaughter stated that over the past few weeks the patient had become more confused and had seemingly not been taking care of herself. She found her grandmother in her parked car outside in her front yard with the patient in it in a dazed state. When she asked what she was doing she kept answering her, I don't know. Her granddaughter at that time decided to bring her to the Emergency Room for evaluation. The patient used to see Dr. Miranda who retired around a year ago. She has been treated for hypertension, diabetes mellitus, and chronic kidney disease. Since he retired she has seen another physician and is not on any medication. Again, per the granddaughter's report the patient lives alone and is in a disheveled manner. The granddaughter reports that she is a hoarder and does not eat very well. The patient got to the E.R. and a head CT was done and did not show anything acute. Laboratory was significant for profound anemia, microcytic in nature. Initial hemoglobin was 5.4 and hematocrit 19.8. She was noted to be mild hyponatremic with renal insufficiency and hyperglycemia. Lactic acid level was 2.8. Urine reveals a urinary tract infection as well. PAST MEDICAL HISTORY: 1. Hypertension. 2. Diabetes mellitus type 2. 3. Poor medical compliance. 4. Dementia. PAST SURGICAL HISTORY: She has had bilateral hip replacements and a hysterectomy. So, she was admitted with encephalopathy of unknown etiology, thought to be multifactorial. CT of the head was unremarkable. She had profound anemia. MCV was 70. They checked stools and I believe gave her some blood. Hypovolemic and hyponatremic. They gave her IV fluids. Renal insufficiency with underlying chronic kidney disease. Once again, she was treated with fluid. Untreated diabetes mellitus. Put her on a pattern scale. She was treated for a urinary tract infection and she showed some improvement. Dr. Kilpatrick was consulted on 07/06/2016 for profound anemia and elevated lactic level and they did an EGD and colonoscopy. They did a lower extremity venous study showing acute deep venous thrombosis in the left superficial femoral, popliteal, and posterior tibial veins. Probable chronic changes in the right popliteal with recannulization of flow. Dr. Erickson was consulted status-post right hemicolectomy. The patient remained sedated on the ventilator. She underwent surgery and they found an ascending colon mass. That is why she had the right hemicolectomy. They found evidence of PTE and she was put on an anticoagulant. They debated doing an inferior vena cava filter. She was able to be weaned off the vent and moved out of the unit gaining some improvement. She felt ready to try and go to rehab. On 07/23/2016 she seemed very confused and we stopped the morphine. On the evening of 07/23/2016, which was last night, she coded. A large tenacious mucous plug was suctioned and she was intubated. So, her list of problems right now is: 1. 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 2. Pulmonary embolism for which she is on therapeutic Lovenox. 3. Sepsis, which is unclear. HIDA scan could not rule out the possibility of acute cholecystitis. The patient had a urinary tract infection suspected which was also treated. Also, infection of surgical wound is a possibility and she was given antibiotics and this seemed to improve. 4. Gram-negative giorgi wound infection. Infectious Disease is following. 5. Gram-positive cocci urinary tract infection. Hernandez catheter was in for about 10 days and it was removed about 4 days ago. 6. Nutritional needs. The patient is getting TPN feeding. 7. Delirium, multifactorial. We did stop the morphine for the present time. 8. Status-post code and respiratory failure. Suspect predominantly mucous plugs. She could have had some aspiration. PHYSICAL EXAMINATION: VITAL SIGNS: On exam today temp is 98.2, pulse 102, respirations 24, and blood pressure 150/87. HEENT: Pupils are equal and round. CARDIOVASCULAR: CVP less than 6 cm. LUNGS: Clear anterolateral right now, intubated. ABDOMEN: Soft. SKIN: Warm and dry. URINE OUTPUT: 1600 mL, which was good. LABORATORY DATA: Labs today reveal a white count of 25,960, hematocrit 32, and platelet count 696,000. Electrolytes: Sodium is 133, potassium 4.4, chloride 95, bicarb 21, BUN 59, creatinine 1.5, and blood sugars 258 and 230. ASSESSMENT AND PLAN: 1. Respiratory failure. Suspect mucous plugging. Possibility she could have aspiration. Continue present vent support and antibiotics. 2. Pulmonary embolism. On Lovenox. Continue. 3. Status-post hemicolectomy and primary anastomosis for right colon adenocarcinoma. 4. She has been treated for a gram-negative giorgi wound infection, pseudomonas aeruginosa, and she was also treated for Enterococcus faecalis group D urinary tract infection. I think Dr. Hester is still following. 5. Nutrition. We will start back her TPN as able. 6. She was having some trouble with delirium. She is intubated now and sedated. Blood pressure was low so she was put on some pressors. REVIEW OF HER MEDICATIONS: 1. She is on propofol and norepinephrine per protocol. 2. She is on micafungin 100 mg IV daily. 3. She is on her . 4. Cefepime 2 g every 12 hours. 5. Vancomycin 1600 mg IV which I think she is getting 1200 mg every 48 hours. We will try to wean her off the ventilator as able. Pulmonary is involved.
[2016-07-24] MEDS: MYCAMINE 100 MG in NS 100 ML IV SCH (20:43)
[2016-07-25] MEDS: HUMULIN R SUBQ SCH ×4 (01:26→20:57)
[2016-07-25] MEDS: DUONEB (A & A) INH PRN ×6 (02:59→23:06)
[2016-07-25 04:42] LABS: ALLEN TEST YES; BE 2.6 mmoll (-3.0-3.0); BLOOD TYPE ARTERIAL; DRAW SITE R RADIAL; METHB 1.5 % (0.0-1.5); MODALITY VENTILATOR; O2(CT) 12.9 mL/dL (15.0-23.0); PCO2(98.6) 31 mmHg (35-45); PO2(98.6) 117 mmHg (60-100); SAMPLE BLOOD; SAO2 98.2 % (95.0-100.0); SRATE 12 BPM; THB 9.4 g/dL (11.5-17.4); TVOL 500 mL; pH(98.6) 7.52 (7.35-7.45)
[2016-07-25 05:24] LABS: HEMATOCRIT 28.1 % (37.0-47.0); HEMOGLOBIN 8.8 g/dL (12.0-16.0); MCHC 31.3 g/dL (33-37); MCV 82.9 FL (81-99); MPV 9.8 FL (7.4-10.4); RBC 3.39 XMIL (4.2-5.4)
[2016-07-25 05:33] LABS: MAGNESIUM 2.2 mg/dL (1.5-2.7)
[2016-07-25] MEDS: DIPRIVAN 1% 100 ML IV SCH (05:35)
[2016-07-25] MEDS: CLINIMIX E 4.25%-5% SOLUTION 1,000 ML IV SCH ×2 (05:35→18:20)
[2016-07-25] MEDS: PRILOSEC ORAL SUSPENSION PO SCH (06:06)
[2016-07-25 06:09] LABS: POTASSIUM 4.2 mmol/L (3.5-5.1); TOTAL BILIRUBIN 0.85 mg/dL (0.20-1.00); TOTAL PROTEIN 6.1 g/dL (6.3-8.3)
--- NOTE | 2016-07-25 06:23 | Diag Imaging Result Document ---
PROCEDURE NAME: CHEST-PORTABLE - 07/25/2016 PORTABLE CHEST: COMPARISON: Compared to 07/24/2016. FINDINGS: No change in the endotracheal tube or in the nasogastric tube. The patient is rotated to the left. The heart is not enlarged. Decreased vascular distention although mild pulmonary edema remains. Questionable tiny pleural effusions. There is atelectasis or small infiltrate in the left base. IMPRESSION: Mild interval improvement
--- NOTE | 2016-07-25 07:25 | Diag Imaging Result Document ---
PROCEDURE NAME: CT GUIDE ABD DRAINAGE W/CATH - 07/24/2016 CT-GUIDED CHOLECYSTOSTOMY: DESCRIPTION OF PROCEDURE: The consent was previously obtained from the patient's family. Localization was performed with CT. Following sterile preparation of the skin and administration of 1% lidocaine to the skin and deeper soft tissues, a 12-[place] pigtail catheter was inserted into the gallbladder through the lower margin of the right hepatic lobe. There is drainage of clear somewhat viscous bile, which was placed to drainage with an accordion drain. In the process of placing the catheter, fairly large quantity of serosanguineous ascites was drained and a sample of this was sent to the laboratory. Following the establishment of the drainage, the gallbladder is seen to be decompressed. IMPRESSION: Successful CT-guided percutaneous cholecystostomy.
[2016-07-25] MEDS: MAXIPIME 2 GM/NS 100 ML IV SCH ×2 (07:48→20:02)
[2016-07-25] MEDS ORDERED: ROBITUSSIN PO PRN (08:09)
[2016-07-25] MEDS: LIPOSYN 20% 250 ML IV SCH (11:20)
--- NOTE | 2016-07-25 11:34 | PROGRESS NOTE ---
DATE: 07/25/2016 SUBJECTIVE: Ms. Nava is still on the ventilator and sedated. Not much change on the vent settings. OBJECTIVE: Vital signs: Temperature 99.8 degrees, pulse 95, respirations 22, blood pressure 165/77. HEENT: Pupils are equal. Neck: CVP less than 6 cm. Lungs: Clear in all lung okeefe. Abdomen: Soft. Skin: Warm and dry. Intake and output: Urine output 1100 mL. LAB: White count 14,107 which has come down from yesterday 25,000, hematocrit was 28, platelet count 540,000. Sodium 134, potassium 4.2, chloride 99, bicarb 22, BUN 60, creatinine 1.5. Blood sugars 186, 198, 186. Chest x-ray from this morning: Mild interval improvement. No change in the endotracheal tube or nasogastric tube. Patient rotated to the left. Mild pulmonary edema remains. Questionable tiny pleural effusions, atelectasis, small infiltrates in the left face. She had a CT biopsy and drainage. CT-guided cholecystostomy and it was successful. Pathology pending. ASSESSMENT AND PLAN: 1. Respiratory failure, mucous plugging. Treating for pneumonia. Her numbers suggest she is doing a little better. Decreased white count. 2. Pulmonary embolism. On Lovenox. 3. Status post hemicolectomy and primary anastomosis for right colon adenocarcinoma. 4. Treated for gram-negative rods wound infection Pseudomonas aeruginosa. Also treated for enterococcus faecalis group D urinary tract infection. I think Dr. Hester is following. 5. Nutrition. I am going to start her back on TPN. 6. Having some trouble with delirium. Intubated and sedated at the present time. I think her mental status was improving before her respiratory trouble. Of note, she had thick mucus plugging noted we will see if we can try some guaifenesin per her NG tube.
[2016-07-25] MEDS ORDERED: VANCOMYCIN 1,200 MG in NS 250 ML IV SCH (15:00)
[2016-07-25] MEDS: TYLENOL PO PRN (15:26)
[2016-07-25] MEDS: MYCAMINE 100 MG in NS 100 ML IV SCH (20:57)
[2016-07-26] MEDS: HUMULIN R SUBQ SCH ×4 (02:07→21:08)
[2016-07-26] MEDS: DUONEB (A & A) INH PRN ×3 (03:50→15:57)
[2016-07-26 05:00] LABS: HEMATOCRIT 27.1 % (37.0-47.0); HEMOGLOBIN 8.4 g/dL (12.0-16.0); MCH 25.7 PG (27-31); MCV 82.9 FL (81-99); MPV 9.5 FL (7.4-10.4); RBC 3.27 XMIL (4.2-5.4)
[2016-07-26 05:05] LABS: ALLEN TEST YES; BE 2.4 mmoll (-3.0-3.0); BLOOD TYPE ARTERIAL; DRAW SITE R RADIAL; METHB 1.6 % (0.0-1.5); O2(CT) 11.8 mL/dL (15.0-23.0); PCO2(98.6) 37 mmHg (35-45); PO2(98.6) 66 mmHg (60-100); SAMPLE BLOOD; SAO2 95.5 % (95.0-100.0); pH(98.6) 7.46 (7.35-7.45)
[2016-07-26 05:06] LABS: MODALITY COOL AEROSOL
[2016-07-26 05:29] LABS: CALCIUM 8.3 mg/dL (8.8-10.2); TOTAL BILIRUBIN 1.08 mg/dL (0.20-1.00); TOTAL PROTEIN 6.1 g/dL (6.3-8.3)
[2016-07-26] MEDS: PRILOSEC ORAL SUSPENSION PO SCH (06:06)
[2016-07-26] MEDS: MAXIPIME 2 GM/NS 100 ML IV SCH ×2 (07:47→20:36)
[2016-07-26] MEDS: APRESOLINE IV PRN (07:52)
[2016-07-26] MEDS: CLINIMIX E 4.25%-5% SOLUTION 1,000 ML IV SCH ×2 (08:09→22:04)
--- NOTE | 2016-07-26 08:32 | Diag Imaging Result Document ---
PROCEDURE NAME: CHEST-PORTABLE - 07/26/2016 PORTABLE CHEST X-RAY: COMPARISON: 07/25/2016. FINDINGS: The endotracheal tube has been removed. Stable nasogastric tube and left PICC line in good position. There is improvement in the bilateral infiltrates/edema. Stable retrocardiac consolidation or effusion. Stable heart size. IMPRESSION: 1. Endotracheal tube removed. 2. Slight improvement in the infiltrates/edema.
[2016-07-26] MEDS: LOVENOX SUBQ SCH ×2 (08:35→20:36)
[2016-07-26] MEDS: MORPHINE IV PRN ×3 (08:35→20:00)
--- NOTE | 2016-07-26 09:18 | PROGRESS NOTE ---
DATE: 07/26/2016 SUBJECTIVE: Ms. Nava is extubated. She is confused and does appear to be in some discomfort. OBJECTIVE: Vital Signs: Temp 99.8 degrees, pulse 97, respirations 27, blood pressure 175/80. HEENT: Pupils are equal and round. CVP less than 6 cm. Lungs: Clear in all lung okeefe. Cardiovascular exam: Regular rhythm and rate without murmur or S3. Abdomen: Soft. Skin: Warm and dry. : Urine output 3800 mL. LABS: White count 17,170, hematocrit 27, platelet count 519,000. Sodium 135, potassium 4.0, chloride 98, bicarbonate 25, BUN 52, creatinine 1.2. Total bilirubin 1.08, AST 58, ALT 36, alkaline phos 344. X-RAYS: Chest x-ray from yesterday: Mild interval improvement. Decreased vascular distention, although mild pulmonary edema remains. Questionable tiny pleural effusions. Atelectasis or small infiltrate in the left base. ASSESSMENT AND PLAN: 1. Respiratory failure, mucous plugging and treating for pneumonia. Able to extubate. Good air and gas exchange at present time. Continue present antibiotics treating for potential pneumonia. I think her main reason for respiratory failure was mucous plugging. 2. Pulmonary embolism on Lovenox. 3. Status post hemicolectomy, primary anastomosis, right colon adenocarcinoma. 4. Gram-negative rods wound infection. Pseudomonas aeruginosa treated for Enterococcus faecalis group B urinary tract infection. 5. Nutrition: We need to see if we can start swallowing again. 6. Trouble with delirium, underlying dementia. She looks like she needs something for pain. Of course we are going to have to be careful with that because of her confusion, but we will see if maybe we can try something. I will try and give her some morphine p.r.n. and see how that does. Will try to start her on soft diet and see how we do with swallowing, and then see if we can get her up in a chair, begin rehabilitation and get her stronger.
[2016-07-26] MEDS: LIPOSYN 20% 250 ML IV SCH (11:09)
[2016-07-26] MEDS: TYLENOL PO PRN (11:20)
--- NOTE | 2016-07-26 16:02 | PROGRESS NOTE ---
DATE: 07/26/2016 ADDENDUM: She was previously on Lovenox for PTE. I will put her back on Lovenox roughly 1 mg/kg subcutaneously q.12 hours. Also we will see how we do with her feeding. I did note that she has had an echocardiogram which showed ejection fraction of 35%, so she does have systolic congestive heart failure as well which we will keep in mind. I will see that she is on micafungin. We will discuss with Dr. Abraham.
[2016-07-26] MEDS ORDERED: HALDOL IV ONE ×2 (16:19→18:31)
[2016-07-26] MEDS ORDERED: HALDOL IM PRN (18:31)
[2016-07-26] MEDS: ATIVAN IV PRN (20:00)
[2016-07-26] MEDS: MYCAMINE 100 MG in NS 100 ML IV SCH (21:31)
--- NOTE | 2016-07-26 23:04 | OPERATIVE NOTE ---
PROCEDURE DATE: 07/26/2016 PROCEDURE: Central venous line placement with ultrasound guidance. SURGEON: Mike Enriquez MD. PREOPERATIVE DIAGNOSIS: 1. Poor venous access. 2. Postoperative infection. POSTOP DIAGNOSIS: 1. Poor venous access. 2. Postoperative infection. DESCRIPTION OF PROCEDURE: The right side of the neck and upper anterior chest were prepped and draped in a sterile fashion. We had to give the patient 2 mg of morphine, a milligram of Ativan in order for her to be calm and stay still. After local anesthesia we made a small stab incision, attempted a posterior stick and gained access to the vein but could not pass the wire adequately so we sheathed the ultrasound machine, identified the internal jugular vein then went to the middle approach, anesthetized the skin, made a small stab incision to access the vein, passed the guidewire without difficulty then dilated the tract and passed the triple-lumen catheter to 19 cm. We aspirated blood from each lumen and irrigated each lumen with saline. We secured the flange to the skin with silk contained within the tray. A Biostep patch was placed at the exit site and a sterile OpSite was applied. She tolerated it well. Chest x-ray is ordered.
[2016-07-27] MEDS: HUMULIN R SUBQ SCH ×4 (02:45→20:24)
[2016-07-27] MEDS: MORPHINE IV PRN ×2 (02:47→08:39)
[2016-07-27 04:53] LABS: BE 1.3 mmoll (-3.0-3.0); BLOOD TYPE ARTERIAL; DRAW SITE R RADIAL; METHB 1.3 % (0.0-1.5); O2(CT) 18.8 mL/dL (15.0-23.0); PCO2(98.6) 47 mmHg (35-45); PO2(98.6) 131 mmHg (60-100); SAMPLE BLOOD; SAO2 98.9 % (95.0-100.0); THB 13.8 g/dL (11.5-17.4); pH(98.6) 7.37 (7.35-7.45)
[2016-07-27 04:54] LABS: ALLEN TEST YES; MODALITY COOL AEROSOL
[2016-07-27 05:12] LABS: ALBUMIN 1.9 g/dL (3.5-5.0); POTASSIUM 4.1 mmol/L (3.5-5.1); TOTAL BILIRUBIN 1.13 mg/dL (0.20-1.00); TOTAL PROTEIN 5.7 g/dL (6.3-8.3)
[2016-07-27] MEDS: PRILOSEC ORAL SUSPENSION PO SCH (06:24)
--- NOTE | 2016-07-27 07:10 | Diag Imaging Result Document ---
PROCEDURE NAME: CHEST-PORTABLE - 07/26/2016 SINGLE FRONTAL RADIOGRAPH OF THE CHEST: COMPARISON: None available. FINDINGS: There is a newly placed right central line. The tip projects over the right atrium. There is no evidence of pneumothorax post placement. Bilateral pulmonary edema and pulmonary venous congestion may be marginally worse than previously. There is stable cardiomegaly. IMPRESSION: 1. Interval placement of right central line with no evidence of pneumothorax post placement. 2. Suggestion of slight worsening of pulmonary venous congestion and interstitial edema.
[2016-07-27 07:43] LABS: HEMATOCRIT 26.9 % (37.0-47.0); HEMOGLOBIN 8.1 g/dL (12.0-16.0); MCH 25.1 PG (27-31); MCHC 30.1 g/dL (33-37); MCV 83.3 FL (81-99); MPV 9.8 FL (7.4-10.4); RBC 3.23 XMIL (4.2-5.4)
[2016-07-27] MEDS: LOVENOX SUBQ SCH ×2 (07:58→20:26)
[2016-07-27] MEDS: MAXIPIME 2 GM/NS 100 ML IV SCH ×2 (07:58→20:26)
--- NOTE | 2016-07-27 08:17 | Diag Imaging Result Document ---
PROCEDURE NAME: CHEST-PORTABLE - 07/27/2016 SINGLE FRONTAL RADIOGRAPH OF THE CHEST: COMPARISON: 07/26/2016. FINDINGS: Right central line is in stable position. NG tube projects below the diaphragm and out of the field of view. Pulmonary venous congestion and interstitial edema is approximately stable. There is suggestion of small bibasilar pleural effusions. The effusion on the right may be slightly larger, and there is increased opacity at the right lung base suggesting worsening of atelectasis and/or infiltrate. No other new consolidations are identified. Cardiac silhouette is stable. IMPRESSION: Increased opacity at the right lung base suggesting slight increase in small pleural effusion with adjacent atelectasis and/or infiltrate.
[2016-07-27] MEDS: DUONEB (A & A) INH PRN ×2 (08:22→19:29)
[2016-07-27] MEDS: LIPOSYN 20% 250 ML IV SCH ×2 (09:01→11:45)
[2016-07-27] MEDS: ATIVAN IV PRN ×3 (09:04→20:26)
[2016-07-27] MEDS: CLINIMIX E 4.25%-5% SOLUTION 1,000 ML IV SCH (11:43)
[2016-07-27] MEDS: ALBUMIN 25% IV SCH (11:43)
--- NOTE | 2016-07-27 12:12 | PROGRESS NOTE ---
DATE: 07/27/2016 SUBJECTIVE: Ms. Nava has been pretty restless. The Haldol seemed to work against her. Morphine seems to make her restless. Ativan seems to help. She has not been able to cooperate with swallow but is breathing much more comfortably and at the present time looks very comfortable sleeping. OBJECTIVE: Temperature is 99.0, pulse 96, respirations 25. Lungs are clear anterolateral. Cardiovascular: Regular rate and rhythm without murmur or S3. Abdomen: Soft. Skin: Warm and dry. Urine output is 3150, good urine output. DIAGNOSTIC DATA: White count is 16,690, hematocrit 26, platelet count 512,000. So white count is coming down. Sodium is 135, potassium 4.1, chloride 100, bicarb 25, BUN is 47, creatinine 1.2, blood sugar is 211, 171, 173 and 174. Total bilirubin is 1.13, AST is 41, ALT is 29. Central line was placed by Dr. Enriquez, I appreciate his help. Chest x-ray from today, 07/27/2016, with increased opacity of the right lung base suggesting slight increase in small pleural effusion with adjacent atelectasis or infiltrate. ASSESSMENT AND PLAN: 1. Continue back on her Lovenox with history of pulmonary thromboemboli. We started that yesterday at 1 mg/kg subcutaneously twice a day. 2. Respiratory failure which is improved off the ventilator. We are treating her for pneumonia, and she had thick mucus plugging, which I think was the main culprit. This is improving. Continue present treatment. 3. History of status post hemicolectomy with anastomosis, right colon adenocarcinoma. 4. Gram-negative rods were treated for Pseudomonas aeruginosa and Enterococcus faecalis, a group B urinary tract infection, which I think is resolved. 5. Nutrition. Still getting Clinimix. She is not able to cooperate and swallow at this time. 6. I would like to see if I can get something to help with her delirium and confusion. The Ativan so far seems to be our most effective. We will look over medication list. Note that her blood sugars appear to be well controlled at 179, 173 and 174.
[2016-07-27] MEDS: LASIX IV SCH ×2 (12:52→20:26)
[2016-07-27] MEDS: VANCOMYCIN 1,200 MG in NS 250 ML IV SCH (15:00)
[2016-07-27] MEDS: APRESOLINE IV PRN (18:30)
[2016-07-27] MEDS: MYCAMINE 100 MG in NS 100 ML IV SCH (20:26)
[2016-07-28] MEDS: CLINIMIX E 4.25%-5% SOLUTION 1,000 ML IV SCH ×2 (00:27→14:00)
[2016-07-28] MEDS: ALBUMIN 25% IV SCH (00:43)
[2016-07-28] MEDS: HUMULIN R SUBQ SCH ×4 (02:51→19:52)
[2016-07-28] MEDS: DUONEB (A & A) INH PRN ×5 (03:20→22:43)
[2016-07-28 06:22] LABS: HEMOGLOBIN 6.7 g/dL (12.0-16.0); MCH 25.7 PG (27-31); MCHC 30.5 g/dL (33-37); MCV 84.3 FL (81-99); MPV 9.7 FL (7.4-10.4); RBC 2.61 XMIL (4.2-5.4)
[2016-07-28 06:40] LABS: MAGNESIUM 1.8 mg/dL (1.5-2.7)
[2016-07-28 06:43] LABS: ALBUMIN 2.3 g/dL (3.5-5.0); CALCIUM 8.5 mg/dL (8.8-10.2); POTASSIUM 4.2 mmol/L (3.5-5.1); TOTAL BILIRUBIN 1.19 mg/dL (0.20-1.00); TOTAL PROTEIN 5.9 g/dL (6.3-8.3)
[2016-07-28] MEDS: PRILOSEC ORAL SUSPENSION PO SCH (06:47)
[2016-07-28] MEDS: ATIVAN IV PRN ×4 (07:42→23:02)
[2016-07-28] MEDS: MAXIPIME 2 GM/NS 100 ML IV SCH ×2 (08:05→19:53)
[2016-07-28] MEDS: LIPOSYN 20% 250 ML IV SCH ×2 (08:05→13:31)
[2016-07-28] MEDS: LOVENOX SUBQ SCH (08:06)
[2016-07-28] MEDS ORDERED: NS 500 ML IV ONE (10:04)
--- NOTE | 2016-07-28 10:07 | Diag Imaging Result Document ---
PROCEDURE NAME: CHEST-PORTABLE - 07/28/2016 SINGLE FRONTAL RADIOGRAPH OF THE CHEST: COMPARISON: 07/27/2016. FINDINGS: Right central line is in stable position. NG tube projects below the diaphragm and out of the field of view. The patient is rotated toward the right. Given differences in positioning and exposure, the interstitial edema seen previously is stable to marginally improved. There are stable bibasilar effusions. Cardiac silhouette is unchanged. No new consolidation is identified. IMPRESSION: [id number] improvement of pulmonary edema.
--- NOTE | 2016-07-28 11:50 | PROGRESS NOTE ---
DATE: 07/28/2016 SUBJECTIVE: Ms. Nava is more agitated. Ativan seems to have been helpful. We have not given her any sedation in a while, still requiring restraints. She is extubated, but respiratory rate has stayed in the 30s and 40s I think most of the night. OBJECTIVE: Temperature is 98.2, pulse 120, respirations 35, blood pressure 142/93. Pupils are equal and round. CVP is less than 6 cm. Lungs are clear in all lung okeefe. Cardiovascular: Regular rate and rhythm without murmur, what appears to be sinus tachycardia. O2 saturation is 98%. Urine output is over 6 L. DIAGNOSTIC DATA: White count has gone up to 20,490, hematocrit is 22, hemoglobin 6.7, platelet count 476,000. Chemistry shows sodium 145, potassium 4.2, chloride 95, bicarb 26, BUN is 56, creatinine 1.4. Blood sugar is 250, 236, 207. ASSESSMENT AND PLAN: 1. She is back on her Lovenox due to history of pulmonary thromboemboli. 2. Respiratory failure. She is extubated but increased respiratory rate. We are treating her for pneumonia and thick mucus plugging which I think put her into a respiratory arrest and brought her to the unit. 3. History of status post hemicolectomy with anastomosis, right colon adenocarcinoma. Concerned that white count is elevated and may obtain some more blood cultures. 4. Delirium, confusion and underlying dementia. So far, Ativan is about the only thing that has helped. She is on vancomycin. She is on micafungin due to candidemia. She is on cefepime. Getting Clinimix. I do not see anything to change at this point.
[2016-07-28] MEDS: LASIX IV SCH ×2 (14:30→17:22)
[2016-07-28] MEDS: NS 1,000 ML IV SCH ×2 (15:00→17:22)
[2016-07-28] MEDS: MYCAMINE 100 MG in NS 100 ML IV SCH (19:53)
[2016-07-29] MEDS: VANCOMYCIN 1,200 MG in NS 250 ML IV SCH (02:13)
[2016-07-29] MEDS: HUMULIN R SUBQ SCH ×4 (02:13→19:48)
[2016-07-29] MEDS: NS 1,000 ML IV SCH ×3 (02:16→22:55)
[2016-07-29] MEDS: DUONEB (A & A) INH PRN ×6 (03:21→23:04)
[2016-07-29] MEDS: PRILOSEC ORAL SUSPENSION PO SCH (06:21)
[2016-07-29 06:29] LABS: HEMATOCRIT 20.9 % (37.0-47.0); HEMOGLOBIN 6.8 g/dL (12.0-16.0); MCHC 32.5 g/dL (33-37); MCV 82.9 FL (81-99); MPV 10.2 FL (7.4-10.4); RBC 2.52 XMIL (4.2-5.4)
--- NOTE | 2016-07-29 06:33 | PROGRESS NOTE ---
DATE: 07/29/2016 SUBJECTIVE: Reviewed notes from when I was gone. Long, complicated week by report. Recently, she started developing bloody bowel movements and has developed a hematoma of the right axilla after a central line attempt. Her Lovenox has been held. No major changes over the course of the night by the nursing staff. OBJECTIVE: Vital signs: Patient is currently afebrile. Heart rate in the low 100s. Blood pressure 116/56, O2 saturation 99%. General exam: Confused, moaning. Hematoma noted to the right axilla. Abdomen: Soft, appropriately tender. Incision with open aspect in the inferior aspect with good granulation tissue. Positive bloody bowel movement noted. LABORATORIES: Currently pending. We reviewed labs from yesterday. She was transfused. ASSESSMENT AND PLAN: An 89-year-old, female, status post open right hemicolectomy. Postoperative state: At this time, patient is showing signs of potential bleeding from surgery. She has also showed signs of bleeding at her axilla with a hematoma. Her hematocrit has dropped to 20. Her labs for the morning are pending. I had a lengthy discussion over the phone with the granddaughter. She does not want any invasive procedures done. There is currently a process underway to make the patient DNR. At this point, we will continue supportive care and monitor closely, but again at this time, the granddaughter's wishes are the patient does not have an IVC filter. We will continue to monitor the patient in the ICU. MTDD
[2016-07-29 06:36] LABS: MAGNESIUM 1.8 mg/dL (1.5-2.7)
[2016-07-29 06:41] LABS: CALCIUM 7.2 mg/dL (8.8-10.2); POTASSIUM 4.6 mmol/L (3.5-5.1); TOTAL BILIRUBIN 1.6 mg/dL (0.20-1.00); TOTAL PROTEIN 5.4 g/dL (6.3-8.3)
[2016-07-29] MEDS: ATIVAN IV PRN ×3 (07:54→20:24)
[2016-07-29] MEDS: MAXIPIME 2 GM/NS 100 ML IV SCH ×2 (07:55→19:47)
--- NOTE | 2016-07-29 07:55 | Diag Imaging Result Document ---
PROCEDURE NAME: CHEST-PORTABLE - 07/29/2016 SINGLE FRONTAL RADIOGRAPH OF THE CHEST: COMPARISON: 07/28/2016. FINDINGS: Right central line is stable. NG tube projects below the diaphragm and out of the field of view. Small effusions are approximately stable. Bibasilar infiltrates are stable to marginally improved. No new consolidations are identified. Cardiac silhouette is stable. IMPRESSION: Stable to marginal improvement.
[2016-07-29] MEDS: LIPOSYN 20% 250 ML IV SCH (09:42)
--- NOTE | 2016-07-29 09:47 | PROGRESS NOTE ---
DATE: 07/29/2016 SUBJECTIVE: She is still very confused. There is a large hematoma on the right axillary, right side of her chest. Lovenox has been off. She has had some bloody stools. Blood pressure appears a little better, stable. PHYSICAL EXAMINATION: Vital Signs: Temperature 97.7 degrees, pulse 91, respirations 32. HEENT: Pupils are equal and round. CVP less than 6 cm. Respiratory: Lungs are clear anterolateral. Cardiovascular Examination: Regular rhythm and rate without murmur or S3. Abdomen: Soft. Skin: Is warm and dry. Is and Os: Urine output is 3400 mL. LAB: White count 27,210, hematocrit 20, platelet count 359,000. Chemistry shows a sodium of 135, potassium 4.6, chloride 98, bicarb 22, BUN 80, creatinine 2.8. Blood sugars 226 and 140. The chest x-ray from today, stable, marginal improvement, right central line stable. NG tube projects below the diaphragm out of the field of view. Small effusions proximally, stable. Bibasilar infiltrates are stable, marginally improved. No new consolidations. ASSESSMENT AND PLAN: At this time, the patient is showing signs of potential bleeding from surgery. She had shown signs of bleeding with a hematoma on the right side. Hematocrit dropped to 20. Dr. Erickson has had a lengthy discussion with the granddaughter. She does not want any invasive procedures. There is currently a process underway to make her a [id number]. Continue supportive care. The patient's family does not wish to have an inferior vena cava filter. We will discuss with the team whether they want to pursue transfusions. Her hemoglobin is low. Continue her present vancomycin, normal saline at 85 mL an hour, micafungin she is getting at 100 mg hours, Clinimix, cefepime.
[2016-07-29] MEDS ORDERED: NS 400 ML IV ONE (13:51)
[2016-07-29] MEDS: SODIUM CHLORIDE 0.9% INJ SCH (16:09)
[2016-07-29] MEDS: PROTONIX IV SCH (16:09)
[2016-07-29 18:22] LABS: HEMATOCRIT 17.5 % (37.0-47.0); HEMOGLOBIN 5.8 g/dL (12.0-16.0)
[2016-07-29] MEDS ORDERED: NS 500 ML IV ONE (18:30)
[2016-07-29] MEDS: MYCAMINE 100 MG in NS 100 ML IV SCH (19:47)
[2016-07-29] MEDS: DILAUDID IV PRN (22:11)
[2016-07-30] MEDS: ZYPREXA IM PRN (00:06)
[2016-07-30] MEDS ORDERED: NS 250 ML IV ONE (00:24)
[2016-07-30] MEDS: DILAUDID IV PRN ×8 (01:31→22:20)
[2016-07-30] MEDS: HUMULIN R SUBQ SCH ×4 (02:23→19:57)
[2016-07-30 02:26] LABS: HEMATOCRIT 23.8 % (37.0-47.0); HEMOGLOBIN 8.1 g/dL (12.0-16.0)
[2016-07-30] MEDS: SODIUM CHLORIDE 0.9% INJ SCH ×2 (04:43→15:01)
[2016-07-30] MEDS: PROTONIX IV SCH ×2 (04:44→15:01)
[2016-07-30] MEDS: MAXIPIME 2 GM/NS 100 ML IV SCH (07:28)
--- NOTE | 2016-07-30 07:41 | Diag Imaging Result Document ---
PROCEDURE NAME: CHEST-PORTABLE - 07/30/2016 SINGLE FRONTAL RADIOGRAPH OF THE CHEST: COMPARISON: 07/29/2016. FINDINGS: A right central line is stable. An NG tube projects below the diaphragm and is assumed to be in the stomach. No new consolidations are identified. Inspiration is suboptimal. Bibasilar infiltrates are approximately stable. Cardiac silhouette is stable. IMPRESSION: Stable chest.
[2016-07-30] MEDS: DUONEB (A & A) INH PRN ×5 (07:54→23:43)
[2016-07-30] MEDS: LIPOSYN 20% 250 ML IV SCH (09:10)
[2016-07-30] MEDS: PRILOSEC ORAL SUSPENSION PO SCH (09:10)
[2016-07-30] MEDS: NS 1,000 ML IV SCH (09:10)
[2016-07-30 09:15] LABS: HEMOGLOBIN 9.5 g/dL (12.0-16.0); MCH 29.3 PG (27-31); MCHC 33.9 g/dL (33-37); MCV 86.4 FL (81-99); RBC 3.24 XMIL (4.2-5.4)
[2016-07-30 09:42] LABS: ALBUMIN 1.7 g/dL (3.5-5.0); POTASSIUM 4.9 mmol/L (3.5-5.1); TOTAL BILIRUBIN 1.62 mg/dL (0.20-1.00); TOTAL PROTEIN 5.6 g/dL (6.3-8.3)
[2016-07-30 09:48] LABS: CALCIUM 6.7 mg/dL (8.8-10.2)
--- NOTE | 2016-07-30 12:07 | PROGRESS NOTE ---
DATE: 07/30/2016 SUBJECTIVE: The patient did receive 3 units of blood through the course of the last 24 hours. Her 1st she was transfused because her hematocrit last night was 17. The 1st check after 2 units was 23 which is an appropriate response but she was given an additional 3rd unit. That lab is still pending. Patient's mental status has not changed. No other major issues reported by the nursing staff. She did have a smaller bloody bowel movement. We did start her on Protonix IV and the color of her gastric fluid has become less bloody. OBJECTIVE: Vital Signs: Patient is currently afebrile. Her vital signs have been stable. General exam: Confused and moaning. Skin: Hematoma noted to the right axilla. Abdomen: Soft. Appropriately tender. Incision with open aspect on the inferior aspect with good granulation tissue. Positive bloody bowel movements previously noted. LABORATORY: For this morning currently pending. Most recent hematocrit is 23. ASSESSMENT AND PLAN: This is an 89-year-old female status post open right hemicolectomy #1 postoperative day. At this time patient has continued to have potential signs of bleeding both from her axilla and potentially intra-abdominally. I did discuss with the granddaughter over the phone. The patient has now been made a DNR level 1. At this time I suspect her overall prognosis is poor. The granddaughter does not want any more invasive procedures done which is an appropriate position. At this time we will continue supportive care. May need to consider with the family the option of comfort care and palliative care.
[2016-07-30] MEDS: CLINIMIX E 4.25%-5% SOLUTION 1,000 ML IV SCH (15:01)
--- NOTE | 2016-07-30 16:52 | PROGRESS NOTE ---
DATE: 07/30/2016 SUBJECTIVE: Today Ms. Nava continues to be a little confused bu has no complaints. OBJECTIVE: Vital signs: Blood pressure is 153/66, pulse of 94, respirations 25, temperature 98.7 degrees. General Exam: Ms. Nava 89-year-old female. She is in bed, not in any distress. HEENT: Mucosa is pink and moist. Anicteric. Acyanotic. Neck: Supple. Chest: Air entry is bilaterally reduced. A few crepitations in both lung okeefe. Cardiovascular: Regular rate and rhythm. Abdomen: Soft. There is a cholecystostomy tube on the right upper quadrant and there is also a surgical wound on the lower midline abdomen looks clean. Extremities: No pedal edema. 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 LABORATORY DATA: WBC is 24.88, hemoglobin is 9.5, platelet count of 279,000. Chemistry reviewed. Creatinine is 3.5, calcium is 6.7. From microbiology standpoint patient had a blood culture positive for Genesis on , subsequent one has been negative for 48hrs ASSESSMENT: 1. Ms. 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 Subsequently she has developed pseudomonal wound infection and also Enterococcus faecalis urinary tract infection which I think have been have been treated. 2. Genesis glabrata bacteremia. Would have to repeat, a subsequent blood culture on the is negative. We would have to wait for 48 hours to make sure it is completely fine. Patient is on micafungin but we will consult ID to evaluate the patient and determine the length of therapy for the Genesis bacteremia. 3. Respiratory distress and this was due to mucus plugs on the floor. 4. Altered mental status likely due to multifactorial including infectious versus medication side effects versus prolonged stay in hospital. We would try to avoid benzodiazepines in her. So far patient is do not resuscitate level 1. We will discontinue the IV fluids. Continue with the lipid infusion and we will start her on very gentle Clinimix for nutritional purposes. [facility]
[2016-07-30] MEDS ORDERED: ZOSYN 2.25 GM/NS 50 ML IV SCH (17:00)
[2016-07-30] MEDS: MERREM 500 MG in NS 50 ML IV SCH (17:57)
[2016-07-30] MEDS: MYCAMINE 100 MG in NS 100 ML IV SCH (19:38)
[2016-07-31] MEDS: DILAUDID IV PRN ×7 (00:10→20:10)
[2016-07-31] MEDS: HUMULIN R SUBQ SCH ×4 (02:02→19:44)
[2016-07-31] MEDS: MERREM 500 MG in NS 50 ML IV SCH ×3 (02:02→17:50)
[2016-07-31] MEDS: PROTONIX IV SCH ×2 (03:05→14:55)
[2016-07-31] MEDS: SODIUM CHLORIDE 0.9% INJ SCH ×2 (03:05→14:54)
--- NOTE | 2016-07-31 03:57 | CONSULTATION ---
DATE OF CONSULTATION: 07/30/2016 CONCLUSION: The patient has a fungemia for which she is being treated with micafungin. She has been on cefepime and vancomycin. On chest x-ray, she has bibasilar infiltrates suggestive of pneumonia. She has undergone a hemicolectomy on the right side. The patient has been on micafungin and the organism in the blood was identified as Genesis glabrata. She has been on micafungin for 8 days. Therefore, I do not think her leukocytosis at this time is due to her fungemia. She has been on good coverage for pneumonia but possibly maybe she has developed an extended spectrum beta lactamase producing E coli or Klebsiella causing her pneumonia. Her abdomen is soft. I do not think she has any intra-abdominal focus of sepsis. It should be noted that she does have a drain in her gallbladder as well. RECOMMENDATIONS: I have discontinued cefepime and started meropenem. Earlier, she had been on vancomycin as well which was stopped. DISCUSSION: The patient is unable provide a history. No family members present. The patient was admitted to the hospital with an altered mental status. She was found to have a GI bleed. 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 She has bibasilar infiltrates. She has a positive blood culture for Genesis glabrata. Repeat blood cultures thus far are sterile. She has had an abdominal wound infection which grew Pseudomonas, which was susceptible to all the antibiotics tested. As mentioned above, she has had previous blood cultures positive for Genesis glabrata which were drawn on July 20. A urine culture grew enterococcus. The Enterococcus was susceptible to ampicillin, vancomycin, and nitrofurantoin. PAST MEDICAL HISTORY: Her medical history is positive for hypertension, diabetes, poor medical compliance, questionable dementia. PAST SURGICAL HISTORY: Her surgical history is positive for bilateral hip arthroplasties. Patient has also had a hysterectomy. SOCIAL HISTORY: The patient lives alone. She does not smoke cigarettes, drink alcoholic beverages, or use illicit drugs. HOME MEDICATIONS: Home medications consist of Hyzaar and insulin. REVIEW OF SYSTEMS: Patient's course in the hospital here has also been complicated by renal failure. LABORATORY DATA: The patient's other laboratory studies show a CBC with a white count of 24,880, hemoglobin 8.1, and platelet count 279,000. Creatinine is 3.5, GFR is 12. Alkaline phosphatase is 205. Chest x-ray shows bibasilar infiltrates. Blood cultures are growing Genesis glabrata. Repeat blood cultures are sterile. Urine grew Enterococcus. Patient was discovered to have pulmonary emboli. PHYSICAL EXAMINATION: Vital Signs: Temperature is 97.3 degrees, pulse 100, respirations 23, blood pressure 153/66. Patient weighs 170 pounds. General: This is an ill- appearing, elderly female. The patient is obtunded. Lungs: Clear to auscultation. Cardiovascular: Regular heart rate. Abdomen: Soft and not tender. There is a midline incision which has an opening on the bottom. The wound is intact other than the opening on the bottom. The bottom wound shows no surrounding erythema and there is no purulence. Neurologic: The patient is obtunded. She did not answer questions. She did not follow requests to move her extremities. There was no tremor. Thank you for the consult. [facility]
[2016-07-31 06:57] LABS: HEMATOCRIT 29.2 % (37.0-47.0); HEMOGLOBIN 9.6 g/dL (12.0-16.0); MCH 29.6 PG (27-31); MCHC 32.9 g/dL (33-37); MCV 90.1 FL (81-99); MPV 9.6 FL (7.4-10.4); RBC 3.24 XMIL (4.2-5.4)
[2016-07-31 07:07] LABS: POTASSIUM 5.2 mmol/L (3.5-5.1); TOTAL BILIRUBIN 1.11 mg/dL (0.20-1.00); TOTAL PROTEIN 5.8 g/dL (6.3-8.3)
--- NOTE | 2016-07-31 07:25 | Diag Imaging Result Document ---
PROCEDURE NAME: CHEST-PORTABLE - 07/31/2016 SINGLE FRONTAL RADIOGRAPH OF THE CHEST: COMPARISON: 07/30/2016. FINDINGS: An NG tube projects below the diaphragm and out of the field of view. Inspiration is suboptimal. There has been interval improvement of bibasilar infiltrates, especially on the right. No new consolidation is identified. Cardiac silhouette is stable. IMPRESSION: Interval improvement.
[2016-07-31] MEDS: DUONEB (A & A) INH PRN ×3 (07:52→16:09)
--- NOTE | 2016-07-31 08:49 | PROGRESS NOTE ---
DATE: 07/31/2016 SUBJECTIVE: No major issues brought up by the nursing staff. She has not had a bloody bowel movement in the last 24 hours. She has not had a bowel movement in the last 24 hours. The patient has less bloody NG tube output with a recorded output of 150 over the hourly shift. No other issues reported by the nursing staff. OBJECTIVE: Vital Signs: Patient is been hemodynamically stable. She has been afebrile. General: Confused and moaning. Skin: Hematoma noted to the right axilla. Abdomen: Soft, appropriately tender. Incision with open aspect in the inferior aspect of the wound with good granulation tissue. Currently with a wet-to-dry dressing. LABORATORY DATA: Reviewed from yesterday. Of note, her last hematocrit yesterday at 8:20 was 28. ASSESSMENT/PLAN: An 89-year-old, female, status post right hemicolectomy: The patient's postoperative status has remained relatively stable since her reported decline last week. Her overall prognosis is still poor. She is still confused and moaning. At this time she has not had anymore additional signs of bleeding in the last 24 hours. She is currently on Clinimix for nutrition. We will start tube feeds down her NG tube and monitor closely. Again patient's overall prognosis is poor and may need to consider palliative care consult versus comfort care measures.
[2016-07-31] MEDS: LIPOSYN 20% 250 ML IV SCH (10:06)
[2016-07-31] MEDS: CLINIMIX E 4.25%-5% SOLUTION 1,000 ML IV SCH (10:12)
--- NOTE | 2016-07-31 15:00 | PROGRESS NOTE ---
DATE: 07/31/2016 SUBJECTIVE: Today Ms. Nava remains pretty much stable. She has not been able to give any interval history. OBJECTIVE: Vital signs: Blood pressure is 137/64, pulse of 105, respiration is 15, temperature is 99.1 degrees. General: Ms. Nava is an 89-year-old female. She is in bed, not seemingly distressed. HEENT: Mucosa is pink and moist. Anicteric. Acyanotic. Neck: Supple. Chest: Air entry is bilaterally reduced. There is a few bilateral posterior crepitations. Cardiovascular: Regular rate and rhythm. Abdomen: Soft. There is a cholecystostomy tube on the right upper quadrant. There is a surgical wound on the anterior abdominal wall. Extremities: No pedal edema. 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 Continues to be lethargic but she easily arousable. Does not follow any commands. Skin: Patient has substantial subcutaneous emphysema on the right side of the anterior chest wall. DIAGNOSTIC DATA: WBC 21.53, hemoglobin 9.6, platelet count of 286,000. Chemistry: Sodium is 133, potassium is 5.3, chloride is 102, gap of 18, BUN of 85, creatinine is 4.2. A chest x-ray this morning shows there has been interval improvement of the bibasilar infiltrate, especially on the right. A blood culture which was done on the is now showing positive for yeast, which I think is the same Genesis glabrata. Of note, the micafungin was started on 07/22, which means the blood culture was positive 5 days even after that. ASSESSMENT: 1. Ms. Nava has been in the hospital for the past 25 days, is an 89-year-old female, who initially presented with severe iron deficiency anemia, found to have a right-sided colon mass, turned out to be cancer. Patient is status post right side hemicolectomy with primary anastomosis done by Dr. Erickson on 07/09/2016. 2. Pseudomonal wound infection and Enterococcus faecalis. This has been treated. 3. Genesis glabrata. Blood cultures continue, seem to be positive, even the one done on the 18 is also now growing yeast, and of note, micafungin was started on 07/22/2016, so I am not quite sure what is going on. We are going to repeat the blood cultures. Will probably have to take out the central line which has been there for some time, and we will repeat a limited echo just to look at the valves for vegetation to rule out possible endocarditis. 4. Respiratory distress on the floor. This is due to mucus plug. This has improved. 5. Altered mental status, likely multifactorial. 6. Subcutaneous emphysema after the central line was placed. This is resolving. 7. Acute kidney injury. I think this is multifactorial. Patient had contrast studies before, also had multiple doses of Lasix. At one point she was hypotensive and she also received vancomycin, so this all could potentially affect the kidney functions. Her FENa, her fractional excretion of sodium, is off about 6%, and the one fractional excretion for nitrogen is also more than 35%. Both are consistent with the fact that it could be acute tubular necrosis. And patient urine output is also remarkably low, so I think this is ATN. We have already consulted Nephrology, we are pending the evaluation, and I have also ordered a renal ultrasound. 8. PE. Patient was diagnosed with a pulmonary embolism. Was started on heparin drip and then transitioned to subcutaneous Lovenox. However because she was bleeding this has been discontinued. 9. Normocytic anemia due to iron deficiency. The patient has had a total of 10 PRBC transfused. 10. Pneumonia. The patient is on meropenem and is being followed by Infectious Disease. The general plan: We are going to continue with the current antibiotics. We will repeat the blood cultures. We are going to do a limited echo, and we will consult Nephrology, and pending actually to speak with the daughter because I think the patient is now just showing signs of multiorgan failure, and her general prognosis seems to be remarkably poor.
--- NOTE | 2016-07-31 15:10 | Diag Imaging Result Document ---
PROCEDURE NAME: US RENAL 2 (RETROPER) COMPLETE - 07/31/2016 RENAL ULTRASOUND: FINDINGS: The right kidney measures 9.7 x 5.4 x 5.4 cm. Normal renal echotexture and cortical thickness. No renal stone or hydronephrosis. No renal mass. The left kidney measures 9.3 x 4.2 x 4.2 cm. Questionable mild cortical thinning. No stone or hydronephrosis. There is a 1.1 cm cyst. IMPRESSION: Small left renal cyst, otherwise normal renal ultrasound.
--- NOTE | 2016-07-31 17:28 | PROGRESS NOTE ---
DATE: 07/31/2016 PRESENT ILLNESS: The patient has a Genesis glabrata fungemia. The 1st positive blood culture with it was on July 25. On July 22, micafungin was started. Therefore, the patient had a positive blood culture while she was on micafungin. She patient had an internal jugular catheter placed on July 26. The patient also has bibasilar infiltrates which could be due to pneumonia. MEDICATIONS: Currently, the patient is on micafungin and meropenem. PHYSICAL EXAMINATION: Vital Signs: Temperature is 99.2 degrees, pulse 97, respirations 16, blood pressure 130/57. General: This is an ill-appearing, elderly female. She is obtunded. Lungs: Clear to auscultation. Cardiovascular: Heart rate is regular. Abdomen: Soft. There is a large dressing around it. The dressing is intact. Neurologic: Patient is obtunded. She did not respond to verbal stimuli. LABORATORY AND X-RAY: Chest x-ray shows improvement in the bibasilar infiltrates. Her white count is 21,530, hemoglobin 9.6, and platelet count 289,000. Creatinine is 4.2. The GFR is 10. Alkaline phosphatase is 213. Renal ultrasound was normal except for a small renal cyst. Chest x- ray showed improved bibasilar infiltrates. ASSESSMENT AND PLAN: 1. The patient may have a bibasilar pneumonia. I am going to continue meropenem. This would be day 1 of it. The patient does have fungemia and it occurred while she was on micafungin. Therefore, I am going to stop micafungin and have ordered the patient to start AmBisome. 2. Comorbidities: Include the fact that she has just recently had surgery. She is very elderly. She also has diabetes mellitus and poor medical compliance. 3. It should be noted that because of the patient's fungemia, her bilateral hip arthroplasties may have become infected while the patient is fungemic. [facility]
[2016-07-31] MEDS ORDERED: AMBISOME IV SCH (18:00)
[2016-07-31] MEDS ORDERED: D5W IV SCH (18:00)
--- NOTE | 2016-07-31 18:04 | CONSULTATION ---
DATE OF CONSULTATION: 07/31/2016 REASON FOR CONSULTATION: Acute kidney injury. HISTORY OF PRESENT ILLNESS: Ms. Nava is an 89-year-old white female who is in the ICU. She is not able to provide any history and there is no family present. She was admitted with altered mental status, GI bleed. Adenocarcinoma of the colon was treated surgically. She has had positive blood cultures with Genesis as well as wound cultures with Pseudomonas. She has had a very protracted hospital stay. She was admitted on the of last month. In this context, she has developed acute kidney injury. Her creatinine has ranged between 1.3 and 1.5 up to the , and since that time her creatinine has risen rather abruptly to 4.2 over of a 72 hour period of time. We were asked to see her in consultation and assist with diagnosis and management. PAST MEDICAL HISTORY: Hypertension, diabetes, obesity. Possible dementia. SOCIAL HISTORY: Lives alone. FAMILY HISTORY: Not obtainable. REVIEW OF SYSTEMS: Not obtainable. PHYSICAL EXAMINATION: Vital Signs: Blood pressure 130/57, heart rate 93, respirations 15, temperature 99.2 degrees. Generally: She is an elderly woman, unresponsive. No distress. Skin: Warm and dry. Conjunctivae are pink. Pupils are constricted. Oropharynx is dry. Neck: Neck veins are not visible. Heart: Regular. Lungs: Have equal breath sounds. Abdomen: Obese and soft. Diminished bowel sounds. Extremities: Have 3+ edema. No clubbing or cyanosis. LABORATORY DATA: Sodium 133, potassium 5.2, chloride 100, bicarbonate 18, BUN 95, creatinine 4.2, hemoglobin 9.6. IMAGING: Renal ultrasound with no acute findings. IMPRESSION: Acute kidney injury: Most likely acute tubular necrosis. She does not have urgent indications for dialysis and certainly she is a very poor candidate for dialysis. I have reviewed her medications. No changes are required from the Nephrology perspective today. We will need to discuss with the primary team and with the family regarding additional care. Again, a very poor candidate for dialysis and very poor prognosis overall.
[2016-08-01] MEDS: DILAUDID IV PRN ×6 (00:10→19:52)
[2016-08-01] MEDS: MERREM 500 MG in NS 50 ML IV SCH ×2 (01:03→10:49)
[2016-08-01] MEDS: HUMULIN R SUBQ SCH ×3 (01:05→13:26)
[2016-08-01] MEDS: PROTONIX IV SCH (03:21)
[2016-08-01] MEDS: SODIUM CHLORIDE 0.9% INJ SCH (03:21)
[2016-08-01] MEDS: CLINIMIX E 4.25%-5% SOLUTION 1,000 ML IV SCH (05:50)
[2016-08-01 05:54] LABS: HEMATOCRIT 28.8 % (37.0-47.0); HEMOGLOBIN 9.5 g/dL (12.0-16.0); MCH 29.7 PG (27-31); MPV 9.7 FL (7.4-10.4); RBC 3.2 XMIL (4.2-5.4)
--- NOTE | 2016-08-01 06:11 | PROGRESS NOTE ---
DATE: 08/01/2016 SUBJECTIVE: The patient did not tolerate tube feeds. Her NG tube has been clamped. Her residuals were essentially tube feeds for that. Therefore, the tube feeds are stopped. Nephrology was consulted and reviewed their note. Overall, no major issues were reported by the nursing staff. Her urine output has increased slightly. She is still on Clinimix. OBJECTIVE: Vital signs: The patient is currently afebrile. Her vital signs are stable. General: She is resting comfortably right now. Lungs: Coarse sounds bilaterally in her lungs. Cardiovascular: Regular rate and rhythm. Abdomen: Soft, nondistended, appropriately tender. Incision is healing well with inferior aspect being with currently wet-to-dry dressing. LABORATORY: Reviewed from yesterday. Of note, hematocrit 29, BUN was 95, creatinine 4.2, and albumin 2.0. ASSESSMENT AND PLAN: An 89-year-old female, status post an open right hemicolectomy for cancer. The patient's postoperative status remains relatively stable. Her overall prognosis is still poor, and she is not tolerating enteral feeding. We will await another 24 hours and try to restart tomorrow. If not, we need to transition her over to TPN as opposed to Clinimix. There has been a palliative care consult. We will follow up with the recommendations. Overall, again prognosis is very poor. [facility]
[2016-08-01 06:25] LABS: ALBUMIN 1.9 g/dL (3.5-5.0); POTASSIUM 4.9 mmol/L (3.5-5.1); TOTAL BILIRUBIN 1.14 mg/dL (0.20-1.00)
--- NOTE | 2016-08-01 07:30 | Diag Imaging Result Document ---
PROCEDURE NAME: CHEST-PORTABLE - 08/01/2016 AP PORTABLE CHEST, ERECT AT 0505 HOURS: COMPARISON: Compared to the previous study of 07/31/2016. FINDINGS: There is increasing fluid in the right pleural space and hazy opacity over the right lower lobe. IMPRESSION: Increasing right pleural effusion and probable pulmonary edema, at least over the right base.
[2016-08-01] MEDS: DUONEB (A & A) INH PRN ×3 (07:35→15:41)
[2016-08-01] MEDS: LIPOSYN 20% 250 ML IV SCH (10:48)
--- NOTE | 2016-08-01 11:12 | PROGRESS NOTE ---
DATE: 08/01/2016 SUBJECTIVE: She is unresponsive. OBJECTIVE: Vital Signs: Blood pressure 143/57, heart rate 102, respirations 17, afebrile/ intake 1.9 L. Output 1 L. PHYSICAL EXAM: On unresponsive.Skin: Warm and dry. Extensive ecchymoses on the right flank. HEENT: Conjunctivae are pink. Pupils are equal. Oropharynx is dry. Neck: Neck veins are not appreciated. Heart: Irregular and tachycardic. Lungs: Have diffuse rhonchi. Abdomen: Soft, nontender. Minimal bowel sounds. Extremities: Have 3+ edema. No clubbing or cyanosis. LABORATORY DATA: Sodium 134, potassium 4.9, chloride 100, bicarbonate 16. BUN 105, creatinine 4.8. IMPRESSION: Acute kidney injury. She is really not a candidate for dialysis as this will not change her outcome. My understanding is that she has recently been made a do not resuscitate and there is plan to transfer to the floor with a change in focus to comfort care. I certainly would support that approach. If there is something else I can provide please do not hesitate to call.
--- NOTE | 2016-08-01 15:13 | PALLIATIVE CARE PROGRESS NOTE ---
DATE: 08/01/2016 SUBJECTIVE: She is minimally responsive. She does not appear to be in any acute distress. OBJECTIVE: General: This is an 89-year-old, chronically ill-appearing, female, who does not appear to be in any acute distress. She is minimally responsive. HEENT: Atraumatic normocephalic. Neck: Supple. Cardiovascular: Increased rate. Regular rhythm. Pulmonary: She has diffuse rhonchi. Respirations are nonlabored. Abdomen: Soft. Extremities: She does have edema to all extremities. Pulses are palpable. ASSESSMENT/PLAN: I met with Ms. Nava's granddaughter Lynn Torres to discuss Ms. Nava's current state of health. Ms. Torres states that she would like for her grandmother to transfer to comfort measures only. She states that she understands Ms. Nava is dying. She has questions regarding arrangements, and the neonatal social worker will be notified to assist with those questions. It appears that Ms. Nava's palliative performance scale is 10%. The hospitalist nurse practitioner has been notified that Ms. Nava's family has requested comfort measures only. Ms. Nava is a DNR level 1. Currently Ms. Nava is comfortable with her current pain medication regimen. I would recommend consulting hospice services in the event that Ms. Nava has issues with symptom management. The palliative care team will be available and visit daily. Dictated by DIANNE Fuller for Osmin Abraham MD
--- NOTE | 2016-08-01 15:26 | PROGRESS NOTE ---
DATE: 08/01/2016 SUBJECTIVE: Today, Ms. Nava continues to be pretty altered. Does not have any acute changes per the nursing staff. She would wake up and be jerking and will get some sedatives and pain medications. The palliative team met with the granddaughter, Ms. Bailey, who appears to be the only family member around and she prefers the patient to be comfort care measures only. OBJECTIVE: Vital signs: Blood pressure is 149/70, pulse of 104, respirations 15, temperature is 98.2. General: Ms. Nava is a 89-year-old, female. She is in bed, not seemingly distressed. HEENT: Mucosa is pink and moist. Anicteric. Acyanotic. Neck: Supple. Chest: Air entry is bilaterally reduced. There is some gurgling crepitations in the lung okeefe. Cardiovascular: Regular rate and rhythm. Abdomen: Soft. There is a cholecystostomy drain in the right upper quadrant. DENTAL HYGIENE PROFESSOR: Patient is drowsy, easily arousable, but does not follow any commands. Integument: There is substantial subcutaneous emphysema on the right side of the anterior chest wall and there are some bruises/ecchymotic lesions on the right anterior lateral chest wall. LABORATORY DATA: WBC is 22.2, hemoglobin 9.5, platelet count is 285. Chemistry is reviewed. Potassium is 4.9, creatinine is 4.8, and BUN is 105. ASSESSMENT: 1. Adenocarcinoma of the right colon, status post hemicolectomy. 2. Pseudomonal wound infection, enterococcus faecalis urinary tract infection, improved. 3. Genesis glabrata fungemia. Patient has been switched to lipid amphotericin B. 4. Respiratory distress on the floor due to mucus plug. 5. Altered mental status due to global encephalopathy. 6. Subcutaneous emphysema after central line placement. 7. Acute kidney injury due to acute tubular necrosis. Patient has been evaluated by Nephrology and she is not candidate for renal replacement therapy. 8. Pulmonary embolism. Patient used to be on heparin drip and was transitioned to subcutaneous Lovenox. However, she continues to have remarkable bleeding, so this was discontinued. 9. Iron deficiency anemia. The patient is status post 10 packed red blood cells transfusion. 10. Pneumonia. Patient is currently on meropenem. I spoke extensively with the granddaughter, Ms. Bailey, myself this afternoon. She did say she does not want any aggressive measures to be done to Ms. Nava, and that at this point, she does not want any tube feedings. She does not want any Clinimix or she does not want any total parenteral nutrition. She does not want any lab work to be done and she does not want any invasive procedures or imaging studies. She has not made any decision yet on antibiotics, so for now, we will only do antibiotics and comfort care measures with medications and address symptoms. Palliative care is on board. I did explain to her if patient does not show any improvement, we will consult hospice care and she is in agreement with the plan. We are going to transfer the patient from the unit to the regular floor and we will continue her care.
[2016-08-02] MEDS: DILAUDID IV PRN ×4 (01:26→13:21)
[2016-08-02 05:55] LABS: HEMATOCRIT 27.3 % (37.0-47.0); HEMOGLOBIN 8.9 g/dL (12.0-16.0); MCH 29.6 PG (27-31); MCHC 32.6 g/dL (33-37); MCV 90.7 FL (81-99); MPV 9.9 FL (7.4-10.4); RBC 3.01 XMIL (4.2-5.4)
[2016-08-02 06:14] LABS: ALBUMIN 1.8 g/dL (3.5-5.0); CALCIUM 7.4 mg/dL (8.8-10.2); POTASSIUM 5.3 mmol/L (3.5-5.1); TOTAL BILIRUBIN 0.99 mg/dL (0.20-1.00); TOTAL PROTEIN 5.6 g/dL (6.3-8.3)
--- NOTE | 2016-08-02 06:29 | PROGRESS NOTE ---
DATE: 08/02/2016 Reviewed notes and noted transfer to the floor and comfort care measures. The granddaughter does not want any tube feedings, Clinimix, TPN, or invasive procedures or invasive imaging studies or any labs. At this time, given family wishes for comfort care, I will follow peripherally. MTDD
[2016-08-02] MEDS: DUONEB (A & A) INH PRN ×4 (07:15→20:20)
[2016-08-02] MEDS ORDERED: TYLENOL PR PRN (12:53)
--- NOTE | 2016-08-02 14:27 | PALLIATIVE CARE PROGRESS NOTE ---
DATE: 08/02/2016 SUBJECTIVE: She is minimally responsive. Respirations are slightly labored. She is diaphoretic. OBJECTIVE: General: This is an 89-year-old female who is minimally responsive. HEENT: Atraumatic, normocephalic. Neck: Trachea is midline. Cardiovascular: Increased rate, regular rhythm. Pulmonary: She has diffuse rhonchi. Respirations are slightly labored. Abdomen: Soft. Extremities: Pulses are palpable. Neurologic: She is minimally responsive. ASSESSMENT AND PLAN: Currently, there are no family at the bedside. I will call and update the granddaughter Lynn with Ms. Nava's current health status. It appears that Ms. Nava is close to actively dying. She has comfort medications ordered. I will also add Tylenol to be given rectally. Current temp is 99.5 degrees at this time. The palliative care team will be available as needed. In the event that Ms. Nava's symptoms are not well managed, I would recommend placing a Hospice consult. Dictated by DIANNE Fuller for Osmin Abraham MD
[2016-08-02] MEDS: HEPARIN INJ SCH (14:51)
--- NOTE | 2016-08-02 15:00 | PROGRESS NOTE ---
DATE: 08/02/2016 SUBJECTIVE: Ms. Nava is in bed, continues to be in comfort care only. OBJECTIVE: Vital signs: Blood pressure is 114/48, pulse of 98, respiration is 12 temperature is 97.6 degrees. General Exam: Ms. Nava is an 89-year-old, female. She is in bed. She is nonverbal. Seems to have a tonic deviation of the neck toward the right side. Occasionally she has with this intermittent jerky movement, unsure if she is seizing. LABORATORY DATA: This morning, WBC is down to 10.54, hemoglobin is 8.9, platelet count of 263,000. Chemistry: The potassium was 5.3, and BUN was 101. ASSESSMENT: 1. Adenocarcinoma of the right colon status post hemicolectomy. 2. Pseudomonal infection, Enterococcus urinary tract infection. 3. Genesis glabrata fungemia. 4. Respiratory distress on floor due to mucus plug/aspirations. 5. Altered mental status due to global encephalopathy. Patient seems to be having jerky movements like asterixis related to uremia vs seizures. 6. Subcutaneous emphysema after central line placement. The right para axillary region continues to have this swelling which has crepitus and tense. 7. Acute kidney injury due to acute tubular necrosis. Seems to be getting worse. 8. Pulmonary embolism. 9. Iron deficiency anemia. 10. Pneumonia - hospital acquired versus aspiration. PLAN: Today, the general plan: We are going to continue the comfort care measures. We will probably consult hospice tomorrow to evaluate the patient for inpatient hospice. [facility] CENTERAmanuel
[2016-08-03] MEDS: HEPARIN INJ SCH ×2 (03:35→15:16)
[2016-08-03] MEDS: DILAUDID IV PRN ×3 (03:35→15:15)
[2016-08-03] MEDS: DUONEB (A & A) INH PRN ×5 (07:55→23:21)
[2016-08-03] MEDS: ATIVAN IV PRN ×3 (12:00→22:38)
--- NOTE | 2016-08-03 15:44 | PROGRESS NOTE ---
DATE: 08/03/2016 Today Ms. Nava is stable. Continues to be nonverbal and she is under comfort care measures. OBJECTIVE: Vital signs: Blood pressure is 124/93, respirations 20, pulse is 108, temperature 98.0 degrees. General: Ms. Nava is an 89-year-old female. She is in bed, not in remarkable distress. HEENT: Mucosa is pink and moist. Anicteric. Acyanotic. Neck: Supple. Chest: Air entry is bilaterally reduced. A few bibasilar crepitations. Cardiovascular: Regular rate and rhythm. Abdomen: Soft, recent surgery is noted. Extremities: No pedal edema. BOW MAKER CUSTOM: Patient continues to be alert but nonverbal. Continues repeating some non-comprehensive sentences. Occasionally will have some jerky movements. LABORATORY: No lab work. ASSESSMENT: 1. Adenocarcinoma of the right colon status post hemicolectomy. 2. Pseudomonal infection of the surgical wound and Enterococcus faecalis urinary tract infection. 3. Genesis glabrata fungemia. 4. Respiratory distress secondary to mucus plug/aspiration pneumonia. 5. Altered mental status due to global encephalopathy. 6. Occasional jerking movements suspicious for asterixis related to uremia. 7. Subcutaneous emphysema. 8. Acute kidney injury due to ATN. 9. Pulmonary embolism. 10. Iron deficiency anemia. 11. Pneumonia likely hospital acquired versus aspirations. GENERAL PLAN: We are going to continue with comfort care measures.
[2016-08-04] MEDS: DILAUDID IV PRN ×5 (00:20→22:17)
[2016-08-04] MEDS: HEPARIN INJ SCH ×2 (02:04→15:20)
[2016-08-04] MEDS: ATIVAN IV PRN ×4 (02:54→22:14)
[2016-08-04] MEDS: DUONEB (A & A) INH PRN ×6 (03:24→23:28)
--- NOTE | 2016-08-04 15:06 | PROGRESS NOTE ---
DATE: 08/04/2016 SUBJECTIVE: Today Ms. Nava remains the same. There has not been any major change overnight. OBJECTIVE: Her vitals show blood pressure 111/71, pulse 100, respirations 24, temperature 98.6. Physical exam is unchanged. Specifically, the patient continues to be altered and nonverbal. Abdomen still has the right upper quadrant cholecystostomy drain and has a Hernandez catheter. DIAGNOSTIC DATA: No lab work. ASSESSMENT: 1. Adenocarcinoma of the right colon, status post hemicolectomy. 2. Pseudomonas infection of the surgical wound and Enterococcus faecalis urinary tract infection. I think this has been treated. 3. Genesis glabrata fungemia. 4. Respiratory distress secondary to mucus plus/aspiration pneumonia. 5. Altered mental status due to global encephalopathy. 6. Occasional jerky movements suspicious for asterixis related to uremia. 7. Subcutaneous emphysema. 8. Acute kidney injury due to acute tubular necrosis. 9. Pulmonary embolism. 10.Iron deficiency anemia. 11.Pneumonia, likely due to hospital acquired versus aspiration. PLAN: We are going to continue with comfort care measures for Ms. Nava. She is not receiving any active medication. We will continue with p.r.n. Zyprexa and Dilaudid as well as the Ativan.
[2016-08-04] MEDS: ZYPREXA IM PRN (15:19)
[2016-08-05] MEDS: HEPARIN INJ SCH (01:37)
[2016-08-05] MEDS: DILAUDID IV PRN ×5 (01:51→21:57)
[2016-08-05] MEDS: ATIVAN IV PRN ×4 (02:24→19:26)
[2016-08-05] MEDS: DUONEB (A & A) INH PRN ×6 (02:53→23:55)
--- NOTE | 2016-08-05 10:57 | ECHO REPORT ---
ORDER DATE: 07/31/2016 INDICATION: Fungemia. FINDINGS: 1. The right atrium appears normal in size. 2. There is mild tricuspid regurgitation. RV systolic pressure of 38. 3. Normal RV size and systolic function. 4. Trace pulmonic insufficiency. 5. Normal left atrial size at 3.7 cm. 6. There is no mitral prolapse. Mild mitral regurgitation. 7. Normal LV size, end-diastolic dimension of 4.6. Normal wall thicknesses with a posterior and interventricular septal wall thickness of 1 cm each. Normal LV systolic function. Calculated EF of 66% with normal wall motion. 8. Aortic valve opens well. The valve appears trileaflet with no evidence of stenosis or insufficiency. 9. Aorta appears normal on visualized segments. 10. No pericardial effusion seen. 11. I do not see any clear evidence to suggest valvular vegetation.
--- NOTE | 2016-08-05 16:29 | PROGRESS NOTE ---
DATE: 08/05/2016 SUBJECTIVE: Today Ms. Nava remained stable. She continues to be nonverbal. Per the nursing staff, there has not been any major changes overnight. OBJECTIVE: Vital signs: Stable. Blood pressure is 150/65, pulse is 93, respirations 16, temperature is 97.8 degrees. General: Ms. Nava 89-year-old female. She is in bed, not in any distress. HEENT: Mucosa is pink and moist. Anicteric. Acyanotic. Neck: Supple. Chest: A little gurgly with some crepitations. Cardiovascular: Regular rate and rhythm. Abdomen: Soft. Still has the upper quadrant cholecystostomy tube and there is a Hernandez in place. RETAIL MAINTENANCE TECHNICIAN: Patient continues to be nonverbal. She seems to be alert but very disoriented. DIAGNOSTIC DATA: No lab work. ASSESSMENT: 1. Adenocarcinoma of the right colon status post hemicolectomy. 2. Pseudomonal infection of the surgical wound and enterococcal faecalis urinary tract infection. 3. Genesis glabrata fungemia. 4. Respiratory distress secondary to mucus plug and aspiration pneumonia. 5. Altered mental status due to global encephalopathy likely from uremic encephalopathy. 6. Occasional jerky movements suspicious for asterixis related to uremia. 7. Subcutaneous emphysema. 8. Acute kidney injury due to acute tubular necrosis. 9. Pulmonary embolism. 10. Iron deficiency anemia. Patient is status post 10 packed red blood cells transfusion. 11. Pneumonia likely hospital acquired versus aspiration. GENERAL PLAN: 1. We are going to continue with comfort care measures. The patient seems to be comfortable at this point. I think the long-term plan is to transition her to inpatient hospice if she meets criteria. If not then we might probably want to [facility] with comfort care or with hospice. 2. At this time the granddaughter who is the only family member that she has is the power of securities attorney and has decided to make Ms. Nava comfort care measures only.
[2016-08-06] MEDS: DILAUDID IV PRN ×6 (00:04→20:16)
[2016-08-06] MEDS: ATIVAN IV PRN ×5 (00:04→20:16)
[2016-08-06] MEDS: HEPARIN INJ SCH ×3 (02:13→16:55)
[2016-08-06] MEDS: DUONEB (A & A) INH PRN ×4 (07:22→17:57)
--- NOTE | 2016-08-06 10:57 | PROGRESS NOTE ---
DATE: 08/06/2016 SUBJECTIVE: Today Ms. Nava remains the same. There have not been any changes overnight. Per the nursing staff, the night was uneventful.Objective: Vital Signs: Her blood pressure is 128/70, pulse of 50, respirations 18, temperature is 97.8 degrees. General: In general, Ms. Nava is an 89-year-old female. She is in bed, not seemingly distressed. HEENT: Mucosa is pink and moist. Anicteric. Acyanotic. Neck: Neck is supple. Chest: Air entry is bilaterally reduced. There is some coarse bilateral crepitations. Cardiovascular: Regular rate and rhythm. Abdomen: Soft. There is a right upper quadrant cholecystostomy tube in place. The Hernandez catheter is also in place. There are some bruises to the right side of the abdominal wall and the chest wall. The right upper chest wall medially has this swelling which has been there for some time from hematoma/subcutaneous emphysema. PRODUCTION SUPERVISOR: Patient continues to be nonverbal and nonfocal, just looks extremely confused and delirious. LABORATORY DATA: No lab work. ASSESSMENT: 1. Adenocarcinoma of the right colon status post hemicolectomy. 2. Genesis glabrata fungemia. 3. Respiratory distress due to mucus plug and aspiration pneumonia. This is improved. 4. Altered mental status due to global encephalopathy, likely from uremic encephalopathy. 5. Subcutaneous emphysema. 6. Acute kidney injury due to acute tubular necrosis. 7. Pulmonary embolism. 8. Iron deficiency anemia. Patient is status post 10 packed red blood cell transfusion. 9. Anemia, likely hospital acquired versus aspiration. 10. Comfort care measures. GENERAL PLAN: The patient seems to be stable. I do not thing we are doing much at this point for her in hospital. We will discuss with social work to see if she could [facility] to the [facility] with comfort care measures.
--- NOTE | 2016-08-06 14:55 | PALLIATIVE CARE PROGRESS NOTE ---
DATE: 08/06/2016 SUBJECTIVE: Ms. Nava is minimally responsive. Upon entering the room she is very fidgety, almost thrashing in the bed. Respirations are labored. OBJECTIVE: General: This is an 89-year-old female, who appears to be in significant distress. She is minimally responsive and not able to follow any commands. HEENT: Atraumatic, normocephalic. Neck: Trachea is midline. Cardiovascular: Increased rate, regular rhythm. Pulmonary: Lung sounds are diminished. Respirations are labored. Abdomen: Soft. Extremities: Pulses are palpable. Neuro: She is minimally responsive. She does not follow any commands. ASSESSMENT/PLAN: Currently there are no family at the bedside. I spoke with her nurse regarding her current symptoms of tachypnea and agitation. I will increase her Dilaudid frequency to every 1 hour and her Ativan the frequency to every 2 hours as needed for agitation. It does appear that Ms. Nava is close to actively dying. I will touch base with her granddaughter to see if she has any questions regarding Ms. Nava's current state of health. The Palliative Care team will continue to follow daily. Dictated by DIANNE Fuller for Osmin Abraham MD
[2016-08-07] MEDS: DILAUDID IV PRN ×8 (00:55→23:11)
[2016-08-07] MEDS: HEPARIN INJ SCH ×4 (02:20→17:17)
[2016-08-07] MEDS: ATIVAN IV PRN ×7 (02:20→23:10)
--- NOTE | 2016-08-07 15:00 | PALLIATIVE CARE PROGRESS NOTE ---
DATE: 08/07/2016 SUBJECTIVE: Ms Nava is minimally responsive. She continues to have periods of agitation. OBJECTIVE: General: This is an 89-year-old female who continues to have periods of agitation. HEENT: Atraumatic, normocephalic. Neck: Trachea is midline. Cardiovascular: Increased rate. Regular rhythm. Pulmonary: Lung sounds are diminished with scattered rhonchi. Respirations are labored. Abdomen: Soft. Extremities: Pulses are palpable. ASSESSMENT AND PLAN: Ms. Nava continues to have periods of agitation. The nurse is at bedside and has just administered a dose of Ativan just prior to my visit. She has periods of labored respirations as well. I spoke with the nurse about using Dilaudid to help with Ms. Nava labored respirations. There continues to be no family at the bedside. I will attempt to contact the granddaughter to see if she has any questions regarding Ms. Nava's current state of health. It appears that Ms. Nava's palliative performance scale is 10%. The palliative care team will continue to follow. Dictated by DIANNE Fuller for Osmin Abraham MD
[2016-08-07] MEDS: SODIUM CHLORIDE 0.9% INJ SCH (18:22)
--- NOTE | 2016-08-07 21:37 | PROGRESS NOTE ---
DATE: 08/07/2016 SUBJECTIVE: Ms. Nava's condition remains unchanged. She continues to be nonverbal. OBJECTIVE: Vital Signs: Blood pressure is 130/49, pulse of 93, respirations 14, temperature is 97.4 degrees. Her physical examination is unchanged from yesterday. LABS: No lab work today. ASSESSMENT: 1. Adenocarcinoma of the right colon status post hemicolectomy. 2. Genesis glabrata fungemia. 3. Respiratory distress due to mucus plug and aspiration pneumonia. 4. Altered mental status due to global encephalopathy likely from uremia. 5. Acute kidney injury due to acute tubular necrosis. 6. Pulmonary embolism. 7. Iron deficiency anemia with acute blood loss status post 10 PRBC transfusions. 8. Pneumonia likely hospital associated versus aspiration. PLAN: Comfort care measures. Patient is relatively stable. She has also been seen by the Palliative Care team. We will continue offering comfort care measures as requested by the granddaughter. At this point I feel patient is relatively stable and if she decompensates we will get hospice to evaluate her.
[2016-08-08] MEDS: DILAUDID IV PRN ×2 (01:56→06:43)
[2016-08-08] MEDS: ATIVAN IV PRN ×2 (01:57→06:43)
[2016-08-08] MEDS: HEPARIN INJ SCH ×2 (02:01)
--- NOTE | 2016-08-08 11:20 | PALLIATIVE CARE PROGRESS NOTE ---
DATE: 08/08/2016 SUBJECTIVE: Ms. Nava is minimally responsive. She appears more comfortable today. OBJECTIVE: General: An 89-year-old female, who is minimally responsive and does not appear in any acute distress at this time. Heent: Atraumatic, normocephalic. Neck: Trachea is midline. Cardiovascular: Increased rate. Regular rhythm. Pulmonary: Lung sounds are diminished. Respirations are nonlabored. Abdomen: Soft. Extremities: Pulses are palpable. She does have mild mottling to bilateral lower extremities. ASSESSMENT AND PLAN: Ms Nava appears more comfortable today. Plan to continue with current management and comfort measures. The palliative care team will continue to follow. Dictated by DIANNE Fuller for Osmin Abraham MD
[2016-08-08] MEDS ORDERED: DILAUDID IV PRN (11:46)
--- NOTE | 2016-08-08 12:12 | PROGRESS NOTE ---
DATE: 08/08/2016 SUBJECTIVE: The patient is restless and/thrashing around in bed. Not able to answer any questions. OBJECTIVE: Vital signs: Blood pressure 170/59, pulse of 79, respirations 14, temperature 97.3 degrees, saturations 89% on 2 L nasal cannula. General appearance: Thin white female. She has slight discomfort. HEENT: Anicteric sclerae. Clear conjunctivae. Neck: Supple. No JVD. No bruit. Cardiovascular: S1, S2. Normal rate and rhythm. No murmur, rubs, or gallops. Pulmonary: Clear to auscultation bilaterally. Gastrointestinal: Soft, nontender, nondistended. Normoactive bowel sounds. Musculoskeletal: No clubbing, cyanosis, or edema. LABORATORY DATA: None were ordered for today. ASSESSMENT AND PLAN: This is an 89-year-old white female with history of adenocarcinoma of the colon. She has been declining. We are managing the patient and providing her comfort care only. DISCHARGE INSTRUCTIONS: 1. Comfort care. 2. We will increase her Dilaudid to 1 mg every 8 hours as needed and will give her Ativan every 2 hours. 3. The palliative care team is following the patient. She is not doing well. She has continued to decline. 4. We will continue to follow her closely.
[2016-08-08] MEDS: DUONEB (A & A) INH PRN (19:20)
[2016-08-09] MEDS: HEPARIN INJ SCH (03:09)
[2016-08-09] MEDS: ATIVAN IV PRN ×2 (03:17→14:23)
[2016-08-09 07:33] VITALS: BP 105/45
[2016-08-09] MEDS: DUONEB (A & A) INH PRN ×3 (08:14→15:49)
--- NOTE | 2016-08-09 12:18 | PROGRESS NOTE ---
DATE: 08/09/2016 SUBJECTIVE: The patient appeared to be very restless and uncomfortable. OBJECTIVE: Vital Signs: Blood pressure of 105/45, pulse of 90, respirations 34, temperature 97.8 degrees, saturation of 97% on nasal cannula. General appearance: Cachectic white female, appears to be uncomfortable. Anicteric clear conjunctivae. Neck: Supple. No JVD. No bruit. Cardiovascular: S1, S2. Normal rate and rhythm. No murmur, rubs, or gallops. Pulmonary: Clear to auscultation bilaterally. GI: Soft, nontender, nondistended. Normoactive bowel sounds. Musculoskeletal: No clubbing, cyanosis, or edema. ASSESSMENT AND PLAN: This is an 89-year-old with adenocarcinoma under comfort care. She appears to be restless. We will consult hospice to help her with the pain management to keep patient comfortable and to give her a better quality of life.
--- NOTE | 2016-08-10 05:14 | DISCHARGE SUMMARY ---
ADMISSION DATE: 07/06/2016 DISCHARGE DATE: 08/09/2016 CONSULTATIONS: 1. Paige Kilpatrick MD with Gastroenterology. 2. Ravi Erickson MD with General Surgery. 3. Osmin Abraham MD with Pulmonology. 4. Rosio Anderson MD with Oncology. 5. DIANNE Fuller with Palliative Care team. PERTINENT PROCEDURES: 1. Renal ultrasound shows small left renal cyst, otherwise normal. 2. Echocardiogram with limited views showed an EF of 66% with normal wall motion. 3. Central venous line placement by Dr. Enriquez on 07/26/2016. 4. CT-guided percutaneous cholecystostomy on 07/24/2016. 5. HIDA scan on 07/22/2016. The possibility of acute cholecystitis could not entirely be excluded on the basis of this study. Biliary obstruction present. 6. Chest abdomen and pelvis CT on 07/20/2016 showed constipation, diverticulosis coli, free fluid, no free air or abscess. Venous Dopplers showed no evidence of DVT involving the left upper extremity. There are 2 separate areas of acute superficial thrombophlebitis involving the left cephalic vein. One in the proximal left arm and one in the cephalic vein in the forearm. 7. An exploratory laparotomy with an open right hemicolectomy with ileocolonic anastomosis performed by Dr. Erickson. 8. Colonoscopy with polypectomy, biopsy, Margie ink tattoo placement with control of bleeding performed by Dr. Kilpatrick. 9. EGD performed by Dr. Kilpatrick with biopsy. 10. Head CT showed no hemorrhage, there are with chronic microvascular ischemic changes. DISCHARGE DIAGNOSES: 1. 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 2. Pseudomonal wound infection and Enterococcus faecalis with urinary tract infection, improved on inpatient hospice now. Genesis glabrata fungemia. Again, patient on comfort measures only, now inpatient hospice. 3. Respiratory distress, on the floor secondary to mucus plug. Again, patient was placed on comfort measures, now in-patient hospice. 4. Altered mental status secondary to global encephalopathy, on inpatient hospice. 5. Subcutaneous emphysema after central line placement on inpatient hospice. 6. Acute kidney injury due to acute tubular necrosis. She was not a candidate for renal replacement therapy while getting treatment, now inpatient hospice. 7. Pulmonary embolism. The patient had been on a heparin drip. Transitioned to subcutaneous Lovenox. Continued to have remarkable bleeding, so that was discontinued. Again, on inpatient hospice. 8. Iron deficiency anemia. She is status post 10+ units of packed red blood cells. 9. Pneumonia. The patient was previously on meropenem. Again, after speaking with her granddaughter extensively with Dr. Galvan, as well as Palliative Care, they made the decision to put her on comfort measures only. She is a DNR 1. The granddaughter did not want anything invasive, images or studies. No IV fluids. No tube feedings. No antibiotics and she was placed on comfort care measures. She did not meet inpatient criteria. However, over the course of the evening, through the morning, we were unable to control her symptoms. As of yesterday, the patient has been appearing very restless and uncomfortable in the bed, as well as thrashing around in the bed. She was not answering questions. We reconsulted hospice since we had to increase her Dilaudid as well as her Ativan. Fortunately, the patient did meet inpatient hospice criteria. HOSPITAL COURSE: Briefly, Ms. Nava is an 89-year-old, female, with a history of diabetes, chronic kidney disease, hypertension, which were all currently untreated. Patient lives alone and checked in occasionally by her granddaughter. Per the granddaughter, the past few weeks before her admission, she had become more confused and seemingly had not been taking care of herself. On the day of her admission, she found her grandmother to be in a car parked outside of her front yard with the patient and in a dazed state. When asked what she was doing, she kept answering "I do not know." Her granddaughter, at that time, decided to bring her to the ED. The patient was followed by Dr. Miranda, but when he retired, she did not follow up with another primary care physician. So, she had not been taking her medications. Again, the granddaughter reports the patient lived alone. She appeared disheveled. The granddaughter stated that she was a hoarder and that she does not eat very well. In the ED, patient had a head CT that did not show anything acute. Laboratory data was significant for profound anemia. Initial hemoglobin was 5 and hematocrit 19. She was noted to be mildly hypernatremic with renal insufficiency, hyperglycemic and a lactic acid of 2.8. Her urine revealed a urinary tract infection. She, herself, was quite confused. The patient was admitted from encephalopathy, as well as her profound anemia, non-anion gap metabolic acidosis. She was aggressively hydrated as well as started on IV antibiotics. She underwent a chest abdomen and pelvis CT that did show circumferential ascending colon lesions with lateral perforation but no abscesses. GI also was involved and did an EGD and colonoscopy. She was continued on Protonix. On the colonoscopy, they found a large necrotic-appearing actively bleeding ascending colon mass most consistent with adenocarcinoma status post control of the bleeding with biopsy and Margie ink tattoo. Dr. Erickson was consulted. Patient did undergo an exploratory laparotomy with an open right hemicolectomy with ileocolonic anastomosis performed by Dr. Erickson. She was started on heparin to rule out any DVTs. There showed an acute DVT of the left superficial femoral popliteal and posterior tibial vein, as well as she had a pulmonary embolism. The patient did have some respiratory failure following surgery. She was continued on ventilator support in the ICU. An echocardiogram was obtained to see if there was any pulmonary hypertension so they could start the patient on IV heparin. She was started on a heparin drip without a bolus. She was monitored very closely for any signs of bleeding. She did show signs of bleeding in her anastomosis, so the heparin drip was stopped. The patient did stay in the ICU intubated for several days. She did undergo a swallow evaluation after being extubated. They did recommend a clear liquid diet. So, her TPN as well as NG tube feedings were weaned down. Around 07/19/2016 or 07/20/2016, the patient started having some delirium, I believed secondary to her ICU stay. The patient unfortunately spent several days in the ICU with this delirium minimally responsive, labored respirations. We brought in Palliative Care. It appeared as though she was actively dying. They had several conversations with the granddaughter. The patient continued to be agitated, tachypneic, even with increases of her Dilaudid and increased frequency as well Ativan. After a family meeting with the granddaughter, they did decide to do comfort measures only. The granddaughter did not want any aggressive measures to be done. The patient was a DNR level 1 and no tube feedings. No Clinimix. No TPN. No lab work. No invasive procedures. No imaging. No antibiotics, just comfort measures with medications and address symptoms. Hospice was initially consulted. The patient 's symptoms were being controlled. She was moved to the floor and placed on comfort measures. Unfortunately, on 08/08/2016, the patient was restless thrashing around in the bed not able to answer any questions, becoming more and more restless, so we reconsulted hospice again for inpatient status. She did meet criteria because we did have to go up on her medicines and she still appeared to be restless and uncomfortable even after increasing the pain medicine as well as agitation medicine. She has met criteria for inpatient hospice. She has been admitted to inpatient hospice services. TIME SPENT: Discharge time greater than 40 minutes. Dictated by DIANNE Hadley for Phillip Victor MD Addendum: I personally evaluated and examined the patient in conjunction to the [employer] and agreed with her plans and disposition. Discussed with hospice nurse. ELAINA
== END 2016-08-09 17:43 | disposition hospice, inpatient (51) | DRG 329 ==
LOC: ED 12:29 → 4N 16:24 → OBSVTOIN 16:24 → ICU 07-08 21:35 → DIRADM 07-09 14:54 → ICU 07-09 14:57 → 4N 07-20 14:33 → ICU 07-24 04:48 → 4N 08-01 17:35 → DIRADM 08-02 13:06 → 4N 08-02 13:11
PROVIDERS: ATTEND Internal Medicine
PROC: 30233N1 Transfusion of Nonautologous Red Blood Cells into Peripheral Vein, Percutaneous Approach (ICD-10-PCS; 2016-07-06)
PROC: 0W3P8ZZ Control Bleeding in Gastrointestinal Tract, Via Natural or Artificial Opening Endoscopic (ICD-10-PCS; 2016-07-08)
PROC: 3E0H8KZ Introduction of Other Diagnostic Substance into Lower GI, Via Natural or Artificial Opening Endoscopic (ICD-10-PCS; 2016-07-08)
PROC: 5A1945Z Respiratory Ventilation, 24-96 Consecutive Hours (ICD-10-PCS; 2016-07-08)
PROC: 0BH17EZ Insertion of Endotracheal Airway into Trachea, Via Natural or Artificial Opening (ICD-10-PCS; 2016-07-08)
PROC: 0D9670Z Drainage of Stomach with Drainage Device, Via Natural or Artificial Opening (ICD-10-PCS; 2016-07-08)
PROC: 0DTF0ZZ Resection of Right Large Intestine, Open Approach (ICD-10-PCS; principal; 2016-07-08 16:14)
PROC: 0DJ08ZZ Inspection of Upper Intestinal Tract, Via Natural or Artificial Opening Endoscopic (ICD-10-PCS; 2016-07-08 16:14)
PROC: 0DBH8ZZ Excision of Cecum, Via Natural or Artificial Opening Endoscopic (ICD-10-PCS; 2016-07-08 16:14)
PROC: 0DBK8ZX Excision of Ascending Colon, Via Natural or Artificial Opening Endoscopic, Diagnostic (ICD-10-PCS; 2016-07-08 16:14)
PROC: 3E0336Z Introduction of Nutritional Substance into Peripheral Vein, Percutaneous Approach (ICD-10-PCS; 2016-07-09)
PROC: 02HV33Z Insertion of Infusion Device into Superior Vena Cava, Percutaneous Approach (ICD-10-PCS; 2016-07-10)
PROC: 3E0G76Z Introduction of Nutritional Substance into Upper GI, Via Natural or Artificial Opening (ICD-10-PCS; 2016-07-12)
PROC: 5A12012 Performance of Cardiac Output, Single, Manual (ICD-10-PCS; 2016-07-24)
PROC: 5A1945Z Respiratory Ventilation, 24-96 Consecutive Hours (ICD-10-PCS; 2016-07-24)
PROC: 0BH17EZ Insertion of Endotracheal Airway into Trachea, Via Natural or Artificial Opening (ICD-10-PCS; 2016-07-24)
PROC: 0F9430Z Drainage of Gallbladder with Drainage Device, Percutaneous Approach (ICD-10-PCS; 2016-07-24)
PROC: 02H633Z Insertion of Infusion Device into Right Atrium, Percutaneous Approach (ICD-10-PCS; 2016-07-26)
PROC: B244ZZZ Ultrasonography of Right Heart (ICD-10-PCS; 2016-07-26)
DX: C18.2 Malignant neoplasm of ascending colon (principal); G93.40 Encephalopathy, unspecified; N17.0 Acute kidney failure with tubular necrosis; I26.99 Other pulmonary embolism without acute cor pulmonale; J95.821 Acute postprocedural respiratory failure; J18.9 Pneumonia, unspecified organism; R64 Cachexia; E87.2 Acidosis; E87.3 Alkalosis; I13.0 Hypertensive heart and chronic kidney disease with heart failure and stage 1 through stage 4 chronic kidney disease, or unspecified chronic kidney disease; I46.9 Cardiac arrest, cause unspecified; B37.7 Candidal sepsis; F05 Delirium due to known physiological condition; K81.0 Acute cholecystitis; R18.8 Other ascites; I50.20 Unspecified systolic (congestive) heart failure; K56.7 Ileus, unspecified; E46 Unspecified protein-calorie malnutrition; I82.412 Acute embolism and thrombosis of left femoral vein; T81.4XXA Infection following a procedure, initial encounter; N39.0 Urinary tract infection, site not specified; E87.1 Hypo-osmolality and hyponatremia; I82.432 Acute embolism and thrombosis of left popliteal vein; I82.442 Acute embolism and thrombosis of left tibial vein; I82.531 Chronic embolism and thrombosis of right popliteal vein; J98.11 Atelectasis; K91.89 Other postprocedural complications and disorders of digestive system; K92.1 Melena; I82.612 Acute embolism and thrombosis of superficial veins of left upper extremity; L76.32 Postprocedural hematoma of skin and subcutaneous tissue following other procedure; K22.2 Esophageal obstruction; B96.5 Pseudomonas (aeruginosa) (mallei) (pseudomallei) as the cause of diseases classified elsewhere; B95.2 Enterococcus as the cause of diseases classified elsewhere; E11.22 Type 2 diabetes mellitus with diabetic chronic kidney disease; N18.9 Chronic kidney disease, unspecified; E11.65 Type 2 diabetes mellitus with hyperglycemia; F03.90 Unspecified dementia, unspecified severity, without behavioral disturbance, psychotic disturbance, mood disturbance, and anxiety; F42.3 Hoarding disorder; Z96.643 Presence of artificial hip joint, bilateral; D50.0 Iron deficiency anemia secondary to blood loss (chronic); E86.0 Dehydration; K20.8 Other esophagitis; K29.80 Duodenitis without bleeding; K57.30 Diverticulosis of large intestine without perforation or abscess without bleeding; K64.4 Residual hemorrhoidal skin tags; K63.5 Polyp of colon; K74.60 Unspecified cirrhosis of liver; K44.9 Diaphragmatic hernia without obstruction or gangrene; K25.9 Gastric ulcer, unspecified as acute or chronic, without hemorrhage or perforation; K29.60 Other gastritis without bleeding; K64.1 Second degree hemorrhoids; I25.10 Atherosclerotic heart disease of native coronary artery without angina pectoris; R13.10 Dysphagia, unspecified; T50.1X5A Adverse effect of loop [high-ceiling] diuretics, initial encounter; E11.649 Type 2 diabetes mellitus with hypoglycemia without coma; R33.9 Retention of urine, unspecified; T17.990A Other foreign object in respiratory tract, part unspecified in causing asphyxiation, initial encounter; Z66 Do not resuscitate; T81.82XA Emphysema (subcutaneous) resulting from a procedure, initial encounter; Z51.5 Encounter for palliative care; R27.8 Other lack of coordination; E87.5 Hyperkalemia; Z85.3 Personal history of malignant neoplasm of breast; Z91.19 Patient's noncompliance with other medical treatment and regimen
CPT/HCPCS: 31500; 36415; 36430; 36569; 49405; 51702; 70450; 71010; 71020; 71250; 71260; 74176; 74177; 76770; 78226; 80048; 80053; 80061; 80074; 80202; 81001; 82105; 82140; 82270; 82330; 82378; 82465; 82533; 82550; 82570; 82607; 82728; 82746; 82805; 82948; 83036; 83540; 83550; 83605; 83735; 84100; 84134; 84300; 84439; 84443; 84450; 84478; 84484; 84540; 85014; 85018; 85025; 85027; 85610; 85730; 86038; 86140; 86255; 86850; 86900; 86901; 86920; 87040; 87070; 87077; 87088; 87186; 87205; 88305; 88309; 88313; 89220; 92950; 93005; 93010; 93306; 93308; 93970; 93971; 94002; 94003; 94640; 94761; 94762; 96374; A9537; C9113; G0480; J0131; J0171; J0289; J0330; J0360; J0461; J0692; J0694; J0696; J1100; J1170; J1200; J1630; J1644; J1650; J1815; J1940; J2020; J2060; J2185; J2248; J2250; J2270; J2358; J2405; J2550; J3010; J3370; J3475; J3480; J7030; J7040; J7050; J7060; J7120; P9016; P9047; Q9967; 80320; 80324; 80345; 80346; 80349; 80353; 80358; 80361; 80365; 83992; 92526-GN; 92610-GN; 97110-GP; 97116-GP; 97530-GP; S0164

== ENCOUNTER 2016-08-09 17:44 | Inpatient (IN) | payer OTHER ==
[2016-08-09] MEDS ORDERED: ATROPINE 1% OPHTH SOLN SL PRN (18:05)
[2016-08-09] MEDS ORDERED: HALDOL LIQUID PRN (18:06)
[2016-08-09] MEDS ORDERED: APRESOLINE IV PRN (18:11)
[2016-08-09] MEDS ORDERED: TYLENOL PR PRN (18:11)
[2016-08-09] MEDS ORDERED: ATIVAN IV PRN (18:12)
[2016-08-09] MEDS ORDERED: STERILE WATER INJ. INJ PRN (18:12)
[2016-08-09] MEDS ORDERED: ZYPREXA IM PRN (18:12)
[2016-08-09] MEDS ORDERED: ZOFRAN IV PRN (18:13)
[2016-08-09] MEDS ORDERED: HEPARIN IV SCH (18:15)
[2016-08-09] MEDS: DUONEB (A & A) INH PRN ×2 (19:40→23:53)
[2016-08-10] MEDS: DUONEB (A & A) INH PRN ×2 (02:49→08:19)
[2016-08-10] MEDS: DILAUDID IV SCH ×10 (04:23→10:15)
[2016-08-10 08:03] VITALS: BP 60/38
== END 2016-08-10 10:45 | disposition expired | DRG 376 ==
LOC: 4N 17:44
PROVIDERS: ATTEND Internal Medicine
DX: C18.9 Malignant neoplasm of colon, unspecified (principal); E11.22 Type 2 diabetes mellitus with diabetic chronic kidney disease; F03.90 Unspecified dementia, unspecified severity, without behavioral disturbance, psychotic disturbance, mood disturbance, and anxiety; Z51.5 Encounter for palliative care; Z66 Do not resuscitate; I12.9 Hypertensive chronic kidney disease with stage 1 through stage 4 chronic kidney disease, or unspecified chronic kidney disease; N18.9 Chronic kidney disease, unspecified
CPT/HCPCS: 94640; 94761; J1170